=== PATIENT | male | born 1945 | race Caucasian/White ===

== ENCOUNTER → 2024-02-20 10:23 | Outpatient (REF) | payer MEDICARE, OTHER, SELFPAY ==
[2024-02-21 23:21] LABS: Gastrin 15 pg/mL (0-100)
[2024-02-22 13:32] LABS: Chromogranin A 86 ng/mL (0-187)
== END ==
LOC: REG 10:23
PROVIDERS: ATTENDING PHYSICIAN Internal Medicine Gastroenterology; FAMILY PHYSICIAN Internal Medicine
DX: K52.9 Noninfective gastroenteritis and colitis, unspecified (principal)
CPT/HCPCS: 36415; 82941; 84586; 86316

== ENCOUNTER → 2024-02-22 12:18 | Outpatient (REF) | payer MEDICARE, OTHER, SELFPAY | LOC: RAD 12:18 | PROVIDERS: ATTENDING PHYSICIAN Internal Medicine Gastroenterology; FAMILY PHYSICIAN Internal Medicine | DX: K52.9 Noninfective gastroenteritis and colitis, unspecified (principal) | CPT/HCPCS: 74177; Q9967 ==

== ENCOUNTER → 2024-02-26 10:59 | Outpatient (REF) | payer MEDICARE, OTHER, SELFPAY | LOC: REG 10:59 | PROVIDERS: ATTENDING PHYSICIAN Internal Medicine Gastroenterology; FAMILY PHYSICIAN Internal Medicine | DX: K52.9 Noninfective gastroenteritis and colitis, unspecified (principal) | CPT/HCPCS: 83497 ==

== ENCOUNTER → 2024-04-15 06:23 | Day surgery (SDC) | payer MEDICARE, OTHER, SELFPAY | LOC: GI 06:23 | PROVIDERS: ATTENDING PHYSICIAN Internal Medicine Gastroenterology | DX: K52.9 Noninfective gastroenteritis and colitis, unspecified (principal); K55.9 Vascular disorder of intestine, unspecified | CPT/HCPCS: 45331; 88305 ==

== ENCOUNTER 2024-05-12 20:48 | Inpatient (IN) | payer MEDICARE, OTHER, SELFPAY ==
[2024-05-12] VITALS (12 sets, daily range): BP systolic 104–142; BP diastolic 78–99; BMI 33.6; BMI 32.8
[2024-05-12] MEDS: ZOFRAN 4 MG IV (16:23)
[2024-05-12] MEDS: MORPHINE SULFATE 4 MG IV ×2 (16:32→20:00)
--- NOTE | 2024-05-12 16:40 | ED.GENMED ---
History of Present Illness
General
Chief Complaint: Abdominal Symptoms
Source: patient
Time Seen by Provider: 05/12/24 16:22
History of Present Illness
History of Present Illness:
79-year-old male presents emergency department with complaints of lower abdominal pain that started 2 AM and continues. Pain is constant, but will wax and wane in intensity without specific provoking or relieving factors. He also noted nausea and
repeated episodes of nonbloody vomiting that began at 4 AM, most recently vomited about an hour prior to presentation. He denies associated fever, chills, chest pain, shortness of breath, dizziness, back pain. He notes he has not had output from
his ostomy since this morning. Patient states that he accidentally ate a large Kory last night at dinner and he suspects that that was the cause of the symptoms.
Past History
Past History
ED Past Medical History: Hypercholesterolemia and Other (Liver transplant, ostomy, ischemic colitis)
ED Past Surgical History: Orthopedic, Tonsilectomy and Other
Social History
Tobacco: Non-smoker
Alcohol: None
Drug: None
Personal:
Living: with family
Phy Exam
Physical Exam
Physical Exam:
GENERAL: Alert , in no apparent distress
EYE: pupils equal and reactive
NECK: Supple, no significant adenopathy.
ENT: o/p clr, mmm.
CARDIAC: Regular rate and rhythm .
LUNGS: Clear breath sounds bilaterally, no acute respiratory distress, no wheezes/rales/rhonchi
ABDOMEN: Soft, nonspecific lower abdominal tenderness, no r/g, hyperactive bowel sounds, minimal output in ostomy
NEUROLOGICAL: Alert and oriented, no focal neuro deficits
SKIN: Warm and dry, skin intact.
MUSCULOSKELETAL: No edema, well perfused.
PSYCH: Normal and appropriate interaction.
Course
Orders/Labs/Results
Orders:
Orders
05/12/24 16:10
Ondansetron Injectable [Zofran] 4 mg .ROUTE .STK-MED ONE
05/12/24 16:22
Ondansetron Injectable [Zofran] 4 mg IV NOW STA
05/12/24 16:29
Morphine Sulfate 4 mg .ROUTE .STK-MED ONE
05/12/24 16:32
Morphine Sulfate 4 mg IV NOW STA
05/12/24 16:36
0.9% Sodium Chloride 250 ml [Nss] 250 ml IV BOLUS
05/12/24 16:39
CT Abd/Pel (IV only)-DH only Urgent
Comment:
Reason For Exam: HX ILEOSTOMY WITH N/V/PAIN
05/12/24 16:58
Complete Blood Count/No Diff Urgent
Comprehensive Metabolic Panel Urgent
Lipase Urgent
05/12/24 19:08
Morphine Sulfate 4 mg IV NOW STA
05/12/24 19:15
EKG [Electrocardiogram (*1)] Urgent
Reason for Study: Tachycardia
EKG- Treatment ONCE
05/12/24 19:[address] Non Medication Order As Directed
Physician Order: ng tube
05/12/24 19:18
0.9% Sodium Chloride 500 ml [Nss] 500 ml IV BOLUS
05/12/24 19:29
Diltiazem HCl [Cardizem] 25 mg IV NOW STA
Abnormal Lab Results
05/12/24
16:58
WBC 20.8 H 10^3/uL
(4.8-10.8)
RDW 14.8 H %
(11.5-14.5)
Carbon Dioxide 18 L mmol/L
(22-30)
BUN 22 H mg/dl
(9-20)
Glucose 146 H mg/dl
(70-99)
Calcium 10.6 H mg/dl
(8.4-10.2)
Alkaline Phosphatase 136 H U/L
(38-126)
Total Protein 8.9 H g/dl
(6.3-8.2)
Albumin 5.1 H g/dl
(3.5-5.0)
05/12/24 16:58
05/12/24 16:58
Vital Signs
Initial and Last Documented VS:
Initial Vital Signs
Temp Pulse Resp BP Pulse Ox
98.0 F 89 16 142/96 98
05/12/24 15:10 05/12/24 15:10 05/12/24 15:10 05/12/24 15:10 05/12/24 15:10
Last Documented Vital Signs
Temp Pulse Resp BP Pulse Ox
98.5 F 121 16 123/97 92
05/12/24 19:14 05/12/24 18:11 05/12/24 18:11 05/12/24 18:11 05/12/24 18:11
Update Note
Update Note:
Patient presents to the Emergency Department with abdominal pain nausea vomiting
Number and Complexity of Problems Addressed at the Encounter
� Chronic conditions affecting care:
� Acute Exacerbation and/or Progression of Chronic Illness:
� Differential Diagnosis includes: But not limited to hernia, obstruction, gastroenteritis, etc. etc.
Amount and/or Complexity of Data to be Reviewed and Analyzed
� I performed an independent evaluation of and my interpretation is:
EKG: Repeat ECG read by me a flutter with variable block, rate 128, no acute ischemia
CT:Right lower quadrant diverting ileostomy with a small bowel obstruction . The right lower quadrant parastomal hernia containing a loop of nonobstructed bowel. There is associated edema, likely due to high-grade obstruction.
Intermediate density bilateral renal lesions which are unchanged from prior and may represent hemorrhagic/proteinaceous cyst measuring 1.4 cm on the right and 1.9 cm on the left.. Further evaluation with MRI may be considered.
There is improvement within the sigmoid wall thickening as well as the urinary bladder wall thickening.
Xrays:
Laboratory Studies:leukocytosis 20K
Other:
� Review of other/old records reveals: Discharge summary from September 2023 patient diagnosed with ischemic colitis and had a laparoscopic diverting loop ileostomy.
� Clinical information was obtained by an independent historian: who is bedside
� Prescriptions/Medications Considered but not given:
� Further testing considered but not performed:
Risk of Complications and/or Morbidity or Mortality of Patient Management
� Social determinants of health affecting care:
� Discussion with other providers (PCP, Hospitalists, Consultants, etc):
� Escalation of care including admission/observation vs risk of discharge considered: 7:11 PM pain has returned, we are remedicating now. No active vomiting noted. Labs consistent with leukocytosis, no fever or focal abdominal
tenderness. CT consistent with high-grade obstruction. Case discussed with colorectal surgery Dr. Lance via [place] text. He recommends admission to the hospitalist, NG tube, and continue IV fluids. [place] text sent to Dr. Sellers for admission.
7:29 PM patient noted to be tachycardic although asymptomatic, repeat ECG ordered, consistent with a flutter, Dr. Zayas alerted, will medicate with Cardizem now and monitor closely.
ED Attending Note
-
Portions of this chart may have been created with voice recognition software.� Occasional wrong word or��sound alike� substitutions may have occurred due to the inherent limitations of voice recognition software.
Discharge Plan
Departure
Patient Disposition: Admit
Date of Disposition: 05/12/24
Time of Disposition: 19:18
Presentation/result/management discussed w/ accepting MD/DO: Hospitalist
Condition: Fair
Discharge Problem:
Bowel obstruction
Prescriptions:
No Action
atorvastatin 20 mg Tablet
20 mg PO DAILY
tacrolimus 1 mg Capsule
1 mg PO DAILY
cholecalciferol (vitamin D3) 25 mcg (1,000 unit) Capsule
25 mcg PO DAILY
cetirizine 10 mg Capsule
10 mg PO DAILY
dutasteride-tamsulosin 0.5-0.4 mg Capsule, Er Multiphase 24 Hr
1 cap PO DAILY
acetaminophen [Tylenol] 325 mg Tablet
650 mg PO Q6H PRN (Reason: lower back pain)
Fish Oil 350-600 mg Capsule
1 cap PO DAILY
therapeutic multivitamin Tablet
1 tab PO DAILY
loperamide 2 mg Capsule
2 mg PO DAILYPRN PRN (Reason: diarrhea/liquid stool) 30 Days Qty: 30 0RF
midodrine 5 mg tablet
5 mg PO TID 30 Days Qty: 90 0RF
Rx Instructions:
Hold if Systolic blood pressure >100
Referrals:
Eric Tirado MD [Family Provider] -
Interventions
Interventions:
*Risk Screen - Suicide Last Done: 05/12/24 16:05
*General Assessment Last Done: 05/12/24 16:05
*Neglect/Abuse Screening Last Done: 05/12/24 16:05
ED- Fall Risk Assessment Last Done: 05/12/24 16:05
*ED COVID-19 Vaccine History Last Done: 05/12/24 16:05
FC-Jrogmt-[id number] Assessment Last Done: 05/12/24 16:05
Discharge Date and Time
Print Language: AFGHAN
[2024-05-12] MEDS: NSS 250 IV (17:02)
[2024-05-12 17:10] LABS: Hematocrit 51.3 % (39.0-52.0); Hemoglobin 17.7 g/dL (13.0-18.0); Mean Corp Hgb Conc. 34.5 g/dL (33.0-37.0); Mean Corpuscular Hgb 29.6 pg (27.0-31.0); Mean Corpuscular Volume 85.8 fL (80.0-94.0); Mean Platelet Volume 9.9 fL (7.4-10.4); Platelet Count 217 10^3/uL (130-400); Red Blood Cell Count 5.98 10^6/uL (4.70-6.10); Red Cell Dist. Width 14.8 % (11.5-14.5); White Blood Cell Count 20.8 10^3/uL (4.8-10.8)
[2024-05-12 17:21] LABS: ALT (SGPT) 37 U/L (0-50); AST (SGOT) 48 U/L (17-59); Albumin 5.1 g/dl (3.5-5.0); Alkaline Phosphatase 136 U/L (38-126); Blood Urea Nitrogen 22 mg/dl (9-20); Calcium 10.6 mg/dl (8.4-10.2); Carbon Dioxide 18 mmol/L (22-30); Chloride 106 mmol/L (98-107); Estimated Creatinine Clearance 69 ml/min; Glucose 146 mg/dl (70-99); Lipase 68 U/L (23-300); Potassium 4.9 mmol/L (3.5-5.1); Sodium 143 mmol/L (135-145); Total Bilirubin 1.1 mg/dl (0.2-1.3); Total Protein 8.9 g/dl (6.3-8.2); eGFR > 60.00
[2024-05-12] MEDS: NSS 500 IV (19:52)
--- NOTE | 2024-05-12 20:11 | HPS.HSE ---
Family Physician
-
Family Physician: Eric Tirado MD
Chief Complaint
-
Abd Pain, N/V
History of Present Illness
Patient is a 79y M with PMH significant for alpha-1 antitrypsin deficiency with resultant cirrhosis and s/p liver transplant who presents to ED complaining of abdominal pain and N/V. Patient states that he has been feeling well of late. Last PM
he went out for dinner with family. While eating ice cream after dinner, he noted that he accidentally swallowed a large, frozen burks. He states that he thought this might cause problems - though he denies any prior h/o bowel obstruction, etc.
Around 2 AM patient woke with pain across his lower abdomen. He was uncomfortable and restless and then at 4 AM he began to have N/V episodes. Patient reports non-bloody emesis. His lower abdominal pain persisted. he also reports sensation of
'tightness' in his chest and diaphoresis. No SOB. No back pain. Patient presented to the ED today for further evaluation.
Patient notes that he has had very little output via his ostomy today.
CT scan done in the ED reveals patient to have high-grade SBO with transition in the RLQ.
During his stay in the ED, patient spontaneously entered A-Flutter with rates around 150 bpm.
He was given push dose of IV Cardizem thus far.
Patient is resting comfortably at present. He notes that his abdominal pain and chest tightness are improved, but not resolved.
He has no palpitations.
He denies any prior history of A-Fib / Flutter or other CV disease.
Medical History
Past Medical History
Past Medical History: Reports Other
Additional Past Medical History:
Alpha-1 Antitrypsin Deficiency
Cirrhosis
Ischemic Colitis
Chronic Diarrhea
Hypertension
BPH
Past Surgical History: Reports Other
Additional Past Surgical History:
Liver Transplant (26 years ago - followed at [facility])
Diverting Loop Ileostomy (09/26/23)
Cervical Fusion
Lumbar Fusion
Right Rotator Cuff Repair
Left TKA
Right ABE
Social History
Tobacco: Non-smoker
Alcohol: None
Drug: None
Family History
Family History: Other (Mother: CKD Father: CAD)
Allergies / Home Medications
Allergies reflects when Allergies were last updated in [employer].
Home Medications with original date entered in [employer]
Allergy/Medication List:
Allergies
Allergy/AdvReac Type Severity Reaction Status Date / Time
erythromycin base Allergy Unknown Verified 05/12/24 15:13
pollen extracts Allergy Unknown Verified 05/12/24 15:13
Home Medications
acetaminophen 325 mg tablet (Tylenol) 650 mg PO Q6HPRN PRN lower back pain 09/13/23
cetirizine 10 mg capsule 10 mg PO DAILY Allergies 09/13/23
cholecalciferol (vitamin D3) 25 mcg (1,000 unit) capsule 25 mcg PO DAILY Supplement 09/13/23
dutasteride 0.5 mg-tamsulosin ER 0.4 mg capsule ext.release 24hr mphas 1 cap PO DAILY Urinary Issue 09/13/23
tacrolimus 1 mg capsule, immediate-release 1 mg PO DAILY Liver Issues 09/13/23
therapeutic multivitamin 1 tab PO DAILY Supplement 09/13/23
atorvastatin 40 mg tablet 40 mg PO DAILY 05/12/24
Review of Systems
-
History Source: Patient
A 12 point ROS was completed and negative except as noted: Yes
Constitutional: Denies Fever, Fatigue or Chills
EENT: Denies Sore Throat
Respiratory: Denies Cough or Trouble Breathing
Cardiac: Reports Chest Pain and Diaphoresis; Denies Palpitations or Syncope
Abdomen/GI: Reports Abdominal Pain, Nausea and Vomiting; Denies Diarrhea
: Denies Dysuria
Musculoskeletal: Denies Joint Pain or Edema
Neurological: Denies Dizzy or Headache
Psych: Denies Depression or Anxiety
Physical Exam
Vital Signs
Vital Signs
Temp Pulse Resp BP Pulse Ox
98.5 F 105 18 113/88 95
05/12/24 19:14 05/12/24 20:02 05/12/24 20:02 05/12/24 20:02 05/12/24 20:02
Physical Exam
General: Other (79y M in no acute distress.)
HEENT: Moist mucous membranes and PERRLA
Respiratory: Clear; No Wheezes, Rales or Rhonchi
Cardiac: S1/S2, Irregular Rhythm and Tachycardia; No Murmur
GI: Other (Abdomen is softly distended. RLQ ostomy without significant stool / gas in the device. Dark red appearance of stoma which patient states is normal. Abdomen is diffusely tender.)
Musculoskeletal: No Clubbing, No Cyanosis and No Edema
Neuro: AO x 3
Laboratory Results
-
05/12/24 16:58
05/12/24 16:58
Laboratory Results
Total Bilirubin 1.1 mg/dl (0.2-1.3) 05/12/24 16:58
AST 48 U/L (17-59) 05/12/24 16:58
ALT 37 U/L (0-50) 05/12/24 16:58
Alkaline Phosphatase 136 U/L (38-126) H 05/12/24 16:58
Lipase 68 U/L (23-300) 05/12/24 16:58
Impression/Plan
-
A/P: Patient is a 79y M with PMH significant for alpha-1 antitrypsin deficiency, cirrhosis and liver transplant who presents to ED complaining of abdominal pain and N/V.
SBO
- Admit for further evaluation and treatment.
- NG placed in the ED for decompression.
- Supportive care including NPO, IVFs, antiemetics and pain control.
- Colorectal surgery evaluation.
- Follow for clinical improvement.
- Empiric abx for now given risk of bacterial translocation in immunocompromised host with SBO.
Anion Gap Metabolic Acidosis
- AG = 19 on initial labs. Suspect lactic acidosis - lactate pending.
- IVF support and follow for improvement in labs / lytes.
- Other labs suggest significant hypovolemia which may be sole culprit; however, patient does have history of intestinal / colonic ischemia in the past.
Atrial Flutter
- Patient went into A-Flutter in the ED with rates around 150 bpm.
- To receive Cardizem bolus dose now - follow for effect.
- Begin IV Cardizem infusion if needed for continued rate control.
- Cardiology evaluation for additional recommendations.
- Check Echo.
- Hold on initiation of OAC for now given potential surgical issues / SBO as noted above.
Leukocytosis
- Likely due to stress response plus hypovolemia.
- Note concurrent elevations in prot / albumin, calcium, Hgb, etc.
- Patient is afebrile and not toxic-appearing.
- IVF as noted above and follow for changes.
- Empiric abx as noted above given immunosuppressed status.
History of Ischemic Colitis
Permanent Diverting Ileostomy
- Patient with chronic diarrhea x 1 year and then admission September 2023 revealing sigmoid colitis - presumed ischemic.
- Underwent diverting ileostomy at that time.
- Re-look sigmoidoscopy March 2024 showed persistent inflammatory changes and ileostomy deemed irreversible as a result.
- Routine ostomy care - follow for increased output.
- Colorectal Surgery eval as noted above.
Alpha-1 Antitrypsin Deficiency
Cirrhosis s/p Liver Transplant
Immunosuppressed State
- Stable. Continue current tacrolimus dosing.
- IV abx for now as noted above.
- Follows annually at [facility] for his post-transplant care.
BPH
- Stable. Continue tamsulosin.
- Bladder scan protocol.
DVT Prophylaxis: SCDs
Code Status: Full
[2024-05-12 20:15] LABS: Magnesium 1.8 mg/dl (1.6-2.3)
[2024-05-12 21:04] LABS: Lactic Acid 1.9 mmol/L (0.7-2.0)
[2024-05-12 21:16] LABS: Troponin I < 0.012 ng/ml
[2024-05-12] MEDS: LOPRESSOR 5 MG IV (21:59)
[2024-05-12] MEDS: ZOSYN 50 IV (23:17)
[2024-05-12] MEDS: NSS 1000 IV (23:17)
[2024-05-13] VITALS (13 sets, daily range): BP systolic 100–140; BP diastolic 71–98; BMI 32.9
[2024-05-13 00:52] LABS: Troponin I 0.127 ng/ml
[2024-05-13 00:58] LABS: TSH Reflex To Free T4 4.13 uIU/ml (0.47-4.68)
[2024-05-13] MEDS: ZOSYN 50 IV ×4 (05:15→23:45)
[2024-05-13 05:38] LABS: Hematocrit 44.2 % (39.0-52.0); Hemoglobin 15.1 g/dL (13.0-18.0); Mean Corp Hgb Conc. 34.2 g/dL (33.0-37.0); Mean Corpuscular Hgb 29.7 pg (27.0-31.0); Mean Corpuscular Volume 86.8 fL (80.0-94.0); Mean Platelet Volume 9.5 fL (7.4-10.4); Platelet Count 193 10^3/uL (130-400); Red Blood Cell Count 5.09 10^6/uL (4.70-6.10); White Blood Cell Count 13.5 10^3/uL (4.8-10.8)
[2024-05-13 05:59] LABS: Blood Urea Nitrogen 25 mg/dl (9-20); Calcium 9.1 mg/dl (8.4-10.2); Carbon Dioxide 22 mmol/L (22-30); Chloride 110 mmol/L (98-107); Estimated Creatinine Clearance 62 ml/min; Glucose 106 mg/dl (70-99); Potassium 4.2 mmol/L (3.5-5.1); Sodium 144 mmol/L (135-145); Troponin I 0.194 ng/ml; eGFR > 60.00
--- NOTE | 2024-05-13 06:00 | PTCARENOTE ---
Admitted pt overnight. aaox3, NSR on monitor HR in 70's, bp's stable. C/o slight pain in lower abdomen. NGT R nare, low intermittent suction, drained 700cc green/brown drainage overnight. IVF & IVABX. Refused SCDs. Pt belching but no output in
ostomy or gas.
Pt admitted as full code, when admitted pt, received pt advanced directive & it stated he was a DNR. Educated pt the difference between full code and DNR and what his wishes were. Wished to stay DNR. Reached out to PATIENT SUPPORT TECH, order changed to DNR, bracelet
applied.
No other issues at this time. will continue to monitor.
[2024-05-13] MEDS: PROTONIX IV 40 MG IV (08:05)
[2024-05-13] MEDS: FLOMAX 0.4 MG PO (08:05)
[2024-05-13] MEDS: PROGRAF 1 MG PO (08:05)
[2024-05-13] MEDS: NSS (PRESERVATIVE FREE) 10 ML IV (08:05)
[2024-05-13] MEDS: NSS 1000 IV ×3 (08:11→22:30)
--- NOTE | 2024-05-13 10:37 | PTCARENOTE ---
Assumed care of patient this morning. He is aaox3, pleasant. He reports minimal pain to lower abdomen and describes as cramping. He is tolerating NGT, flushed per order. No output from ileostomy. Pt assisted to get OOB to chair. Pt's at
bedside and updated per RN ability. Assessment, care and VS as charted.
--- NOTE | 2024-05-13 10:46 | CON.CAR ---
Addendum entered and electronically signed by Pal Ortega MD 05/13/24 14:09:
I saw and examined the patient.
The VP [employer]'s note was reviewed and I agree with the note.
Primary support services manager at [facility]
79-year-old male with a history of open 1 antitrypsin, liver transplant, diverting loop ileostomy 09/26/2023 dilated aortic root who presented with abdominal pain and SBO. Patient had ECG with A-fib and a flutter. Patient has since spontaneously
converted back to sinus rhythm. Patient denies having palpitations or heart racing preceding admission or during admission. No known history of A-fib or a flutter denies having any history of coronary artery disease or heart failure.
Echocardiogram this admission with normal left ventricular function and mildly dilated aortic root.
-# New onset A-fib in the setting of SBO.
-CHADSVASC 2
-No anticoagulation with ongoing intra-abdominal process.
-Patient back in sinus rhythm.
-Low-dose beta-lydia
-Continue treatment of SBO as directed by primary team and surgical team
Original Note:
Consultation
Consultation Request
Date/Time Consultation Requested: 05/12/24 10:30p
Date/Time Consultation Performed: 05/13/24 8a
Requesting Provider: Dr. Sellers
Performing Provider: MARK Coombs for Dr. Ortega
Reason for Consultation: new onset Afib
Medical History
-
Chief Complaint: lower abdominal pain
History of Present Illness:
Mr. Kelly is a 79yo male with alpha-1 antitrypsin deficiency with cirrhosis and s/p liver transplant 26 years ago followed at [facility], BPH, HLD, Diverting Loop Ileostomy (09/26/23), 'enlarged aorta' per patient per his support services manager at [facility]
and cervical and lumbar fusion, who presents with abdominal pain. Imaging shows a SBO and he has an NG tube in place. In the ER he had new onset Aflutter at 128 bpm then Afib with RVR 141 bpm, and was given IV Cardizem and IV Lopressor. He then
converted to NSR, no recurrence of Afib on tele. He denies any symptoms. He is admitted to the hospitalist service and we are consulted for new Afib/Aflutter. Currently he denies any cardiac symptoms.
Past Medical History
Past Medical History: Other (as above)
Past Surgical History: Other (as above)
Social History
Tobacco: Non-Smoker
Alcohol: None
Personal:
Living: With Family
Family History
Family History: Reviewed & Not Pertinent
Allergies / Home Medications
Allergy/AdvReac Type Severity Reaction Status Date / Time
erythromycin base Allergy Unknown Verified 05/12/24 15:13
pollen extracts Allergy Unknown Verified 05/12/24 15:13
�Medication �Instructions �Recorded �Confirmed �Type
acetaminophen 325 mg tablet 650 mg PO Q6HPRN PRN lower back 09/13/23 05/12/24 History
(Tylenol) pain
cetirizine 10 mg capsule 10 mg PO DAILY Allergies 09/13/23 05/12/24 History
cholecalciferol (vitamin D3) 25 25 mcg PO DAILY Supplement 09/13/23 05/12/24 History
mcg (1,000 unit) capsule
dutasteride 0.5 mg-tamsulosin ER 1 cap PO DAILY Urinary Issue 09/13/23 05/12/24 History
0.4 mg capsule ext.release 24hr
mphas
tacrolimus 1 mg capsule, 1 mg PO DAILY Liver Issues 09/13/23 05/12/24 History
immediate-release
therapeutic multivitamin 1 tab PO DAILY Supplement 09/13/23 05/12/24 History
atorvastatin 40 mg tablet 40 mg PO DAILY High Cholesterol 05/12/24 05/12/24 History
Review of Systems
-
History Source: Patient
All other systems: Negative unless noted
Physical Exam
Vital Signs
Temp Pulse Resp BP Pulse Ox
98.2 F 69 19 106/74 91
05/13/24 07:05 05/13/24 06:00 05/13/24 06:00 05/13/24 06:00 05/13/24 06:00
Lab Results
05/13/24 05:18
05/13/24 05:18
Troponin I 0.194 ng/ml H* D 05/13/24 05:18
Physical Exam
General: Well Developed, Well Nourished and No Apparent Distress
HEENT: Normocephalic, Anicteric and Other (NG tube in place)
Respiratory: Clear and Non Labored Respirations
Cardiac: S1/S2 and Regular Rhythm
Breast: Deferred by me
GI: Soft and Tender (lower abd)
Rectal: Deferred by Provider
Genito-urinary: Clear Urine
Musculoskeletal: No Clubbing, No Cyanosis and No Edema
Skin: Warm and Dry
Neuro: AO x 3
Psych: Calm
Impression / Plan
-
Afib/Aflutter - new onset in the ER 05/12/24.
- asymptomatic.
- treated with IV Cardizem then IV Lopressor and converted to NSR.
- no recurrence on tele, monior.
- [id number] VASc score is 2 (age), will hold off on OAC therapy due to need for possible surgical intervention of SBO.
- check echo.
Abdominal pain - acute.
- right lower quadrant diverting ileostomy with small bowel obstruction.
- NG tube in place.
- surgery following.
HLD - stable on Lipitor, continue.
- he states his support services manager said he has an 'enlarged aorta' and so she just increased Lipitor from 20mg to 40mg daily.
Liver transplant - 26 years ago, stable followed at [facility].
Data Reviewed
-
EKG: Tracing Personally Visualized and interpreted (initially Aflutter 120s then Afib 140s then NSR 70s)
CT Scan: Report Reviewed by me (right lower quadrant diverting ileostomy with small bowel obstruction)
Labs: Labs Reviewed by me
Old Records: Reviewed
[2024-05-13 11:06] LABS: Troponin I 0.168 ng/ml
--- NOTE | 2024-05-13 11:15 | CON.CRS ---
Consultation
-
Date/Time Consultation Requested: 05/12/2024, 22:21
Date/Time Consultation Performed: 05/13/2024, 11:15
Requesting Provider: Alton Sellers DO
Performing Provider: Myles Lance MD
Reason for Consultation: SBO
Medical History
-
Chief Complaint: abdominal pain/vomiting
History of Present Illness:
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 The patient states he was out to dinner last night and ate a large burks
that was in some ice cream. He was afraid this might cause some stomach discomfort. Around 2 AM he woke with pain in his lower abdomen and then vomited several times. His ostomy bag currently has function and flatus. His WBC was 20.8 and is down
to 13.[address] of the abdomen and pelvis shows right lower quadrant diverting ileostomy with small bowel obstruction. 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 An NG tube was placed in the ER.
He was started on IV antibiotics. We have been consulted for further surgical recommendation.
Past Medical History
Past Medical History: Other (Alpha-1 Antitrypsin Deficiency, Cirrhosis, Ischemic Colitis, Chronic Diarrhea, Hypertension, BPH)
Past Surgical History: Other (Liver Transplant (26 years ago - followed at [facility]), Diverting Loop Ileostomy (09/26/23), Cervical Fusion, Lumbar Fusion, Right Rotator Cuff Repair, Left TKA, Right ABE)
Social History
Tobacco: Non-Smoker
Alcohol: None
Drug: None
Family History
Family History: Reviewed & Not Pertinent
Allergies / Home Medications
Allergy/AdvReac Type Severity Reaction Status Date / Time
erythromycin base Allergy Unknown Verified 05/12/24 15:13
pollen extracts Allergy Unknown Verified 05/12/24 15:13
�Medication �Instructions �Recorded �Confirmed �Type
acetaminophen 325 mg tablet 650 mg PO Q6HPRN PRN lower back 09/13/23 05/12/24 History
(Tylenol) pain
cetirizine 10 mg capsule 10 mg PO DAILY Allergies 09/13/23 05/12/24 History
cholecalciferol (vitamin D3) 25 25 mcg PO DAILY Supplement 09/13/23 05/12/24 History
mcg (1,000 unit) capsule
dutasteride 0.5 mg-tamsulosin ER 1 cap PO DAILY Urinary Issue 09/13/23 05/12/24 History
0.4 mg capsule ext.release 24hr
mphas
tacrolimus 1 mg capsule, 1 mg PO DAILY Liver Issues 09/13/23 05/12/24 History
immediate-release
therapeutic multivitamin 1 tab PO DAILY Supplement 09/13/23 05/12/24 History
atorvastatin 40 mg tablet 40 mg PO DAILY High Cholesterol 05/12/24 05/12/24 History
Review of Systems
-
History Source: Patient
Abdomen/GI: Abdominal Pain, Nausea and Vomiting
A 10 point review of systems was completed, and was negative except as per HPI.
Physical Exam
Vital Signs
Temp 98.2 F 05/13/24 07:05
Pulse 58 05/13/24 10:00
Resp Rate 16 05/13/24 10:00
Blood pressure 117/82 05/13/24 10:00
SaO2 95 05/13/24 10:53
05/12/24 05/13/24 05/14/24
06:59 06:59 06:59
Actual Weight 98 kg
Body Mass Index (BMI) 32.9
Lab Results / Allergies
05/13/24 05:18
05/13/24 05:18
WBC 13.5 10^3/uL (4.8-10.8) H 05/13/24 05:18
Hgb 15.1 g/dL (13.0-18.0) 05/13/24 05:18
Hct 44.2 % (39.0-52.0) 05/13/24 05:18
Plt Count 193 10^3/uL (130-400) 05/13/24 05:18
Allergy/AdvReac Type Severity Reaction Status Date / Time
erythromycin base Allergy Unknown Verified 05/12/24 15:13
pollen extracts Allergy Unknown Verified 05/12/24 15:13
Physical Exam
General: Well Developed and Well Nourished
GI: Soft, Non Tender, Non Distended and Other (ileostomy warm and pink with stool and flatus in bag)
Skin: Warm and Dry
Neuro: AO x 3
Data Reviewed
-
CT Scan: Image Personally Visualized and interpreted, Report Reviewed by me and Discussed with Patient
Labs: Labs Reviewed by me
Old Records: Requested
Assessment / Plan
-
Assessment: 79yo male, s/p recent diverting loop ileostomy by Dr. Alexander, presents to the ER with abdominal pain and vomiting, SBO found on CT, NGT placed in ER
WBC: 13.5 from 20.8. NGT output 1,000ml.
Plan:
-Continue NGT
-Abdominal xrays in AM
-No plans for surgery at this time
-On IV Zosyn
-Continue IVFs
-Will re-evaluate NGT tomorrow post xray
[2024-05-13] MEDS: DILAUDID 0.5 MG IV (12:38)
--- NOTE | 2024-05-13 13:03 | PTCARENOTE ---
Pt did have 50 mls of loose, barnes BM from ileostomy.
--- NOTE | 2024-05-13 14:06 | CM ---
CM met with pt and spouse/Catarina bedside
They reside in a 2[address] with 3 HELEN, full flight to 2nd floor
Pt is independent with his ADLs, has a SPC for use as needed
Self cares for ostomy and orders supplies through [facility]
No financial insecurities
PCP- Celestino
Rx- [facility]
Pt in IMU with SBO/NGT
Surgery following with non-operative management at this time
CM will continue to follow for dc planning
Discharge Disposition- home, follow for needs
--- NOTE | 2024-05-13 14:35 | W.PN.HOSP.TC ---
Today's Communication/Plan
-
conservative management
ngt, abd cxr in the am
low dose bb
Assessment / Plan
Assessment / Plan
General: Well Developed, Well Nourished and No Apparent Distress
HEENT: Normocephalic, Anicteric and Other (NG tube in place)
Respiratory: Clear and Non Labored Respirations
Cardiac: S1/S2 and Regular Rhythm
Breast: Deferred by me
GI: Soft and Tender (lower abd)
Rectal: Deferred by Provider
Genito-urinary: Clear Urine
Musculoskeletal: No Clubbing, No Cyanosis and No Edema
Skin: Warm and Dry
Neuro: AO x 3
Psych: Calm
#SBO-
�continue NG tube
� Abdominal x-ray in the a.m.
-Conservative management
-Continue IV antibiotics empirically due to immunocompromise state
#New onset atrial fibrillation
� No anticoagulation with ongoing intra-abdominal process
� Back in sinus rhythm
� Low-dose beta-lydia next�cardiology consulted
� Echo�mild LVH, EF 60 to 65%
#Hyperlipidemia
� Continue statin
#Leukocytosis
� Most likely acute stress
� Continue antibiotics empirically
� Continue to trend fever curve, white count
#History of Ischemic Colitis
#Permanent Diverting Ileostomy
- Patient with chronic diarrhea x 1 year and then admission September 2023 revealing sigmoid colitis - presumed ischemic.
- Underwent diverting ileostomy at that time.
- Re-look sigmoidoscopy March 2024 showed persistent inflammatory changes and ileostomy deemed irreversible as a result.
- Routine ostomy care - follow for increased output.
- Colorectal Surgery eval as noted above.
#Alpha-1 Antitrypsin Deficiency
#Cirrhosis s/p Liver Transplant
#Immunosuppressed State
- Stable. Continue current tacrolimus dosing.
- IV abx for now as noted above.
- Follows annually at [facility] for his post-transplant care.
#BPH
- Stable. Continue tamsulosin.
- Bladder scan protocol.
#Intermediate density bilateral renal lesions which are unchanged from prior and may represent hemorrhagic/proteinaceous cyst measuring 1.4 cm on the right and 1.9 cm on the left..
Further evaluation with MRI may be considered outpatient
DVT Prophylaxis: SCDs
Anticipated Discharge: > 48 hours
Subjective/Interval History
-
Date of Service: May 13, 2024
appears to have slow improvement in bowel function
Objective Data
-
Labs:
Laboratory Results
05/13/24
05:18
WBC 13.5 H
Hgb 15.1
Hct 44.2
Plt Count 193
Sodium 144
Potassium 4.2
Chloride 110 H
Carbon Dioxide 22
BUN 25 H
Creatinine 1.1
Glucose 106 H
Calcium 9.1 D
Vital Signs:
Vital Signs
Temp Pulse Resp BP Pulse Ox
98.1 F 64 19 130/89 97
05/13/24 11:25 05/13/24 12:00 05/13/24 12:00 05/13/24 12:00 05/13/24 12:00
I&O
05/12/24 05/13/24 05/14/24
06:59 06:59 06:59
Intake Total 1780 / 1780 170 / 170
Output Total 1650 / 1650 50 / 50
Balance 130 / 130 120 / 120
Review of Systems
-
History Source: Patient
All other systems: Not reviewed unless documented
Physical Exam
-
General: No Apparent Distress
HEENT: Normocephalic and Atraumatic
Respiratory: Negative Wheezes
Cardiac: Regular Rhythm and S1/S2
GI: Soft
Genito-urinary: No Costovertebral Tender
Psych: Calm
Data Reviewed
-
Diagnostic Radiology: Image personally visualized and interpreted and Report Reviewed by me
CT Scan: Image personally visualized and interpreted and Report Reviewed by me
Labs: Labs Reviewed by me
[2024-05-13] MEDS: LOPRESSOR IV ×2 (17:55→23:34)
[2024-05-14] VITALS (11 sets, daily range): BP systolic 122–162; BP diastolic 72–116; BMI 32.7
[2024-05-14 03:57] LABS: Hemoglobin 15.6 g/dL (13.0-18.0); Mean Corp Hgb Conc. 33.9 g/dL (33.0-37.0); Mean Corpuscular Hgb 29.1 pg (27.0-31.0); Mean Corpuscular Volume 85.8 fL (80.0-94.0); Mean Platelet Volume 9.7 fL (7.4-10.4); Platelet Count 194 10^3/uL (130-400); Red Blood Cell Count 5.36 10^6/uL (4.70-6.10); Red Cell Dist. Width 15.2 % (11.5-14.5); White Blood Cell Count 14.1 10^3/uL (4.8-10.8)
[2024-05-14 04:30] LABS: ALT (SGPT) 34 U/L (0-50); AST (SGOT) 56 U/L (17-59); Albumin 4.1 g/dl (3.5-5.0); Alkaline Phosphatase 102 U/L (38-126); Blood Urea Nitrogen 22 mg/dl (9-20); Calcium 9.4 mg/dl (8.4-10.2); Carbon Dioxide 25 mmol/L (22-30); Chloride 111 mmol/L (98-107); Estimated Creatinine Clearance 68 ml/min; Glucose 91 mg/dl (70-99); Magnesium 1.7 mg/dl (1.6-2.3); Potassium 4.1 mmol/L (3.5-5.1); Sodium 147 mmol/L (135-145); Total Bilirubin 1.7 mg/dl (0.2-1.3); Total Protein 7.4 g/dl (6.3-8.2); eGFR > 60.00
--- NOTE | 2024-05-14 04:42 | PTCARENOTE ---
No acute events overnight. NGT to LIWS. Hypoactive bowel sounds. No complaints of pain.
[2024-05-14] MEDS: LOPRESSOR IV ×2 (05:19→17:34)
[2024-05-14] MEDS: ZOSYN 50 IV (05:24)
[2024-05-14] MEDS: NSS 1000 IV (06:11)
[2024-05-14] MEDS: FLOMAX 0.4 MG PO (08:24)
[2024-05-14] MEDS: PROGRAF 1 MG PO (08:24)
[2024-05-14] MEDS: NSS (PRESERVATIVE FREE) 10 ML IV (08:24)
[2024-05-14] MEDS: PROTONIX IV 40 MG IV (08:24)
--- NOTE | 2024-05-14 08:37 | W.PN.CD ---
Today's Communication / Plan
-
continue IV bb would transition to 25mg po of succinate qhs
pt will follow up with typical op obstetrics technician Dr Echevarria at [facility], if no further recurrent arhythmia would allow the decision for DOAC to be made with her as an outpatient
No contraindication for surgical intervention if needed
I will sign off
Impression / Plan
-
Afib/Aflutter - new onset in the ER 05/12/24.
- asymptomatic.
- treated with IV Cardizem then IV Lopressor and converted to NSR.
-continue IV betablocker for now as npo
- no recurrence on tele, monitor
- [id number] VASc score is 2 (age), will hold off on OAC therapy due to need for possible surgical intervention of SBO.
- echo 05/13/24 with normal LVEF 60-65%, Dilated asc ao at 4.2cm. (Patient aware of this and is followed by outpatient cards, on statin)
Abdominal pain - acute.
- right lower quadrant diverting ileostomy with small bowel obstruction.
- NG tube in place.
- surgery following.
HLD - stable on Lipitor, continue.
- he states his obstetrics technician said he has an 'enlarged aorta' and so she just increased Lipitor from 20mg to 40mg daily.
Liver transplant - 26 years ago, stable followed at [facility].
Subjective
Feeling a bit better still abd pain, no cp or palps
Physical Exam
Vital Signs/Labs
Vital Signs
Temp Pulse Resp BP Pulse Ox
97.5 F 71 16 130/94 96
05/14/24 07:10 05/14/24 04:00 05/14/24 04:00 05/14/24 04:00 05/14/24 04:00
05/13/24 05/14/24 05/15/24
06:59 06:59 06:59
Actual Weight 98 kg 97.5 kg
05/14/24 03:34
05/14/24 03:34
Magnesium 1.7 mg/dl (1.6-2.3) 05/14/24 03:34
LAB Results
05/12/24 05/13/24 05/13/24
20:45 00:06 05:18
Troponin I < 0.012 0.127 H* D 0.194 H* D
05/13/24
10:21
Troponin I 0.168 H*
Physical Exam
Constitutional: No acute distress
Cardiovascular: Rhythm & rate is regular, Pedal edema is absent, JVD pressure is normal, Systolic murmur absent and Diastolic murmur absent
Respiratory: Respiratory effort normal, Lungs clear to auscul., Wheeze Absent, Crackles Absent and Rhonchi Absent
Neuro/Psych: AO x 3
Data Reviewed
-
Date of Service: May 14, 2024
EKG: Other (sinus with pvcs)
--- NOTE | 2024-05-14 09:04 | W.PN.CRS1 ---
Today's Communication / Plan
-
as below
Assessment/Plan
-
79-year-old male with PMH of severe proctocolitis (being worked up as outpatient, endoscopic biopsies consistent with acute inflammation concerning for possible ischemic colitis per GI, pending a CTA; s/p diverting loop ileostomy September 2023),
alpha 1 antitrypsin s/p liver transplant 26 years ago, liver cirrhosis, HTN who presents with nausea/vomiting and abdominal distention, CT showing RLQ diverting ileostomy with parastomal hernia containing nonobstructed small bowel, dilated loops
proximally concerning for SBO, WBC 20.8; admitted for nonoperative management of SBO with NGT and bowel rest
AFVSS, NGT�1.6 L bilious output
WBC 14.1 from 13.5, Hb stable, CR 1.0
�SBO
� No acute surgical intervention; however, remains with high output from NGT and decreased output from ostomy
� Follow-up x-ray; will likely order small bowel follow-through as he did not receive any oral contrast from his initial CT
� Continue n.p.o. with NGT and IVF; no p.o. meds, okay for ice chips
� Minimize pain medication for accurate abdominal exams; continue low-dose Dilaudid, okay to add Toradol
� Encourage IS, ambulate at least twice daily; okay to clamp NGT for ambulation
� IV Zosyn per hospitalist, no antibiotics necessary from colorectal standpoint
� Recommend DVT PPx
� Appreciate hospitalist
Subjective Data
Subjective Data
Date of Service: May 14, 2024
No overnight events.
Denies much pain.
Denies nausea/vomiting. Still n.p.o. with NGT
+ Ostomy function (states that he is still having some function, but still not back to his baseline) +voiding
Objective Data
-
Vital Signs
Temp Pulse Resp BP Pulse Ox
97.5 F 71 16 130/94 96
05/14/24 07:10 05/14/24 04:00 05/14/24 04:00 05/14/24 04:00 05/14/24 04:00
Intake & Output
05/13/24 05/14/24 05/15/24
06:59 06:59 06:59
Intake Total 1780 / 1780 3755 / 3755
Output Total 1650 / 1650 2400 / 2400
Balance 130 / 130 1355 / 1355
Intake:
Oral fluids 120 / 120 420 / 420
IV fluids (Total) 1500 / 1500 2875 / 2875
IV piggybacks 100 / 100 250 / 250
Amount instilled into GI Tube ( 60 / 60 210 / 210
Total)
[place] Sump 60 / 60 210 / 210
Output:
Liquid stool amount 50 / 50
Ileostomy 50 / 50
Gastrointestinal tube output ( 1000 / 1000 1600 / 1600
Total)
[place] Sump 700 / 700 1600 / 1600
Urine, Voided 650 / 650 750 / 750
Lab Results
05/14/24 03:34
05/14/24 03:34
Physical Exam
-
General: No Acute Distress and AOx3
HEENT: Grossly Normal
Abdomen: Soft, Distended (Mildly distended), Non Tender, No Guarding, No Rebound and Other (NGT-1.6 L bilious for last 24 hours)
Skin: Warm and Dry
--- NOTE | 2024-05-14 09:24 | PN.CDI ---
CDI
- -
CDI:
Physician Documentation Request
Admit Date: 05/12/24 20:48
Dear Doctor Gio,
Please review the following and provide your response in the progress notes.
Clinical Indicators:
Pt admitted with SBO.
05/12 H&P: 'Patient went into A-Flutter in the ED with rates around 150 bpm.'
Laboratory Tests
05/13/24 05/13/24 05/13/24
00:06 05:18 10:21
Troponin I 0.127 H* D 0.194 H* D 0.168 H*
Based on the above, could you clarify in the progress notes, the appropriate diagnosis, if significant, that supports the above abnormalities and additional evaluation, monitoring and/or treatment rendered:
nonischemic myocardial injury
insignificant abnormal lab values
Other
Use of terms such as suspected, likely, concern for, or probable (associated with a specific diagnosis that is being evaluated, monitored, or treated as if it exists) are acceptable and can be coded in the inpatient setting, when documented at the
time of discharge.
Thank you,
Corinne Cardona RN, BSN
CDI Specialist
Available via [facility] [employer]
Please use your independent medical judgment in providing your response.
--- NOTE | 2024-05-14 11:45 | WOUNDNOTE ---
[facility] RN Note: Assisted patient with ileostomy appliance change using his supplies: Hooper wafer # [id number], Chantal seal and Hooper high output pouch #[id number]. Stoma pink, with parastomal hernia. Liquid brown/rust colored stool noted in removed pouch.
Showed amount to RN Anju for I+O. Patient's Miconazole powder and no sting barrier wipe applied to minimal irritant rash around stoma. [id number] Optifoam gentle lite border foam applied to pinpoint adhesive skin tear just distal to wafer. Skin on
patient's sacrum and heels intact. Patient stood during sacral skin check. He declined wanting an air chair cushion. present. Instructed patient nursing can assist him with appliance change if needed prior to discharged. Will sign off, call if
needed.
--- NOTE | 2024-05-14 12:01 | PTCARENOTE ---
Patient sent to OP XRAY.
--- NOTE | 2024-05-14 14:14 | W.PN.HOSP.TC ---
Today's Communication/Plan
-
BB
small bowel follow through
Assessment / Plan
Assessment / Plan
General: Well Developed, Well Nourished and No Apparent Distress
HEENT: Normocephalic, Anicteric and Other (NG tube in place)
Respiratory: Clear and Non Labored Respirations
Cardiac: S1/S2 and Regular Rhythm
Breast: Deferred by me
GI: Soft and Tender (lower abd)
Rectal: Deferred by Provider
Genito-urinary: Clear Urine
Musculoskeletal: No Clubbing, No Cyanosis and No Edema
Skin: Warm and Dry
Neuro: AO x 3
Psych: Calm
#SBO-
�continue NG tube
� Small bowel follow-through this morning
-Conservative management�next labs depending on imaging
-No evidence of perforation, infection at this time�discontinue abx and monitor
#Hypernatremia
-start d5 1/2NS
-ctm
#New onset atrial fibrillation
� No anticoagulation with ongoing intra-abdominal process
� Back in sinus rhythm
� Low-dose beta-lydia qhs
-f/u outpatient cardiology - Dr Echevarria at [facility], if no further recurrent arhythmia would allow the decision for DOAC to be made with her as an outpatient
� Echo�mild LVH, EF 60 to 65%
#Hyperlipidemia
� Continue statin
#Leukocytosis
� Most likely acute stress
� Continue to trend fever curve, white count
#History of Ischemic Colitis
#Permanent Diverting Ileostomy
- Patient with chronic diarrhea x 1 year and then admission September 2023 revealing sigmoid colitis - presumed ischemic.
- Underwent diverting ileostomy at that time.
- Re-look sigmoidoscopy March 2024 showed persistent inflammatory changes and ileostomy deemed irreversible as a result.
- Routine ostomy care - follow for increased output.
- Colorectal Surgery eval as noted above.
#Alpha-1 Antitrypsin Deficiency
#Cirrhosis s/p Liver Transplant
#Immunosuppressed State
- Stable. Continue current tacrolimus dosing.
- Follows annually at [facility] for his post-transplant care.
#BPH
- Stable. Continue tamsulosin.
- Bladder scan protocol.
#Intermediate density bilateral renal lesions which are unchanged from prior and may represent hemorrhagic/proteinaceous cyst measuring 1.4 cm on the right and 1.9 cm on the left..
-Further evaluation with MRI may be considered outpatient
DVT Prophylaxis: SCDs
Anticipated Discharge: > 48 hours
Subjective/Interval History
-
Date of Service: May 14, 2024
High output from NG tube, decreased output from ostomy
Objective Data
-
Labs:
Laboratory Results
05/14/24
03:34
WBC 14.1 H
Hgb 15.6
Hct 46.0
Plt Count 194
Sodium 147 H
Potassium 4.1
Chloride 111 H
Carbon Dioxide 25
BUN 22 H
Creatinine 1.0
Glucose 91
Calcium 9.4
Total Bilirubin 1.7 H
AST 56
ALT 34
Alkaline Phosphatase 102
Vital Signs:
Vital Signs
Temp Pulse Resp BP Pulse Ox
97.6 F 68 13 127/92 96
05/14/24 11:30 05/14/24 10:00 05/14/24 10:00 05/14/24 10:00 05/14/24 11:54
I&O
05/13/24 05/14/24 05/15/24
06:59 06:59 06:59
Intake Total 1780 / 1780 3755 / 3755 150 / 150
Output Total 1650 / 1650 2400 / 2400 50 / 50
Balance 130 / 130 1355 / 1355 100 / 100
Review of Systems
-
History Source: Patient
All other systems: Not reviewed unless documented
Data Reviewed
-
Diagnostic Radiology: Image personally visualized and interpreted and Report Reviewed by me
CT Scan: Image personally visualized and interpreted and Report Reviewed by me
Labs: Labs Reviewed by me
[2024-05-14] MEDS: ZOSYN IV (14:39)
[2024-05-14] MEDS: LOPRESSOR 2.5 MG IV (15:37)
[2024-05-14] MEDS: D5/0.45%NACL 1000 IV ×2 (15:37→19:58)
--- NOTE | 2024-05-14 17:18 | PTCARENOTE ---
Patient had a busy day with imaging. Pt's NGT remains in R nare with high output, however, infused with contrast for small bowel XR and unknown amount instilled. Pt had minimal liquid PO today. This morning, pt's air vent on NG tube was found capped
by Dr. Pappas. When attempting to remove the cap, a piece broke and was unable to be removed. therefore cut the tubing to remove the cap to regain function of [place] sump tube. However, now the air vent portion of his tube is open and
draining when tube is not connected to suction and is below nose due to gravity. Linen and gown changes needed multiple times today as patient needed to be removed from suction for multiple tests.
WOC consulted to help with ostomy care per patient's request. Changed at the bedside.
Pt has mininal pain to lower abdomen, pt reports as cramping. There was some output in his ileostomy, see I&O.
Assessment, care and VS as charted.
--- NOTE | 2024-05-14 21:21 | W.PN.UPDATE ---
Update Note
Progress Note Update
RN reporting that NGT leaking bilous content all over. Will have NGT replaced.
[2024-05-15] VITALS (15 sets, daily range): BP systolic 98–130; BP diastolic 65–91; BMI 31.9
[2024-05-15] MEDS: LOPRESSOR 2.5 MG IV ×2 (00:01→17:11)
[2024-05-15 03:51] LABS: Hematocrit 44.5 % (39.0-52.0); Hemoglobin 15.1 g/dL (13.0-18.0); Mean Corp Hgb Conc. 33.9 g/dL (33.0-37.0); Mean Corpuscular Hgb 29.3 pg (27.0-31.0); Mean Corpuscular Volume 86.2 fL (80.0-94.0); Mean Platelet Volume 9.4 fL (7.4-10.4); Platelet Count 170 10^3/uL (130-400); Red Blood Cell Count 5.16 10^6/uL (4.70-6.10); Red Cell Dist. Width 14.6 % (11.5-14.5); White Blood Cell Count 10.8 10^3/uL (4.8-10.8)
[2024-05-15 04:18] LABS: ALT (SGPT) 30 U/L (0-50); AST (SGOT) 49 U/L (17-59); Albumin 3.9 g/dl (3.5-5.0); Alkaline Phosphatase 90 U/L (38-126); Blood Urea Nitrogen 24 mg/dl (9-20); Calcium 9.3 mg/dl (8.4-10.2); Carbon Dioxide 26 mmol/L (22-30); Chloride 106 mmol/L (98-107); Estimated Creatinine Clearance 75 ml/min; Glucose 111 mg/dl (70-99); Potassium 3.3 mmol/L (3.5-5.1); Sodium 142 mmol/L (135-145); Total Bilirubin 1.3 mg/dl (0.2-1.3); Total Protein 6.9 g/dl (6.3-8.2); eGFR > 60.00
--- NOTE | 2024-05-15 04:49 | PTCARENOTE ---
Addendum entered by Kandis Preston RN 05/15/24 04:51:
am k 3.3- carbon electrodes supervisor provider made aware and ordered repletion.
Original Note:
NGT placed overnight due to damaged pigtail leaking copious amounts of bile. Output of over 2 liters this shift of green bile. Remains on -80 continuous wall suction.
[2024-05-15] MEDS: LOPRESSOR IV ×3 (05:24→23:51)
[2024-05-15] MEDS: KCL 270 MEQ IV ×2 (05:24→10:14)
[2024-05-15] MEDS: D5/0.45%NACL 1000 IV ×2 (05:25→17:17)
[2024-05-15 05:27] LABS: Magnesium 1.8 mg/dl (1.6-2.3)
[2024-05-15] MEDS: FLOMAX 0.4 MG PO (10:11)
[2024-05-15] MEDS: NSS (PRESERVATIVE FREE) 10 ML IV (10:12)
[2024-05-15] MEDS: PROGRAF 1 MG PO (10:13)
[2024-05-15] MEDS: PROTONIX IV 40 MG IV (10:13)
--- NOTE | 2024-05-15 10:30 | W.PN.CRS1 ---
Today's Communication / Plan
-
Abdominal x-rays
Assessment/Plan
-
79-year-old male with PMH of severe proctocolitis (being worked up as outpatient, endoscopic biopsies consistent with acute inflammation concerning for possible ischemic colitis per GI, pending a CTA; s/p diverting loop ileostomy September 2023),
alpha 1 antitrypsin s/p liver transplant 26 years ago, liver cirrhosis, HTN who presents with nausea/vomiting and abdominal distention, CT showing RLQ diverting ileostomy with parastomal hernia containing nonobstructed small bowel, dilated loops
proximally concerning for SBO, WBC 20.8; admitted for nonoperative management of SBO with NGT and bowel rest
AFVSS, NGT�4.1 L
WBC 10.8 from 14.1
�SBO
� Follow-up on a.m. x-ray
-Stoma massaged by Dr. Pappas and attempts to free up bowel around the hernia
-Given high output and lack of improvement, we will consider surgery. Discussed possibility of the patient. Will await x-rays.
� Continue n.p.o. with NGT and IVF; no p.o. meds, okay for ice chips. NG tube to intermittent suction.
� Minimize pain medication for accurate abdominal exams; continue low-dose Dilaudid, okay to add Toradol
� Encourage IS, ambulate at least twice daily; okay to clamp NGT for ambulation
� IV Zosyn per hospitalist, no antibiotics necessary from colorectal standpoint
� Recommend DVT PPx
� Appreciate hospitalist
Subjective Data
Subjective Data
Date of Service: May 15, 2024
Patient states he feels much better today and now that his NG tube was manipulated by Dr. Pappas yesterday. He feels less bloated. He denies abdominal pain.
Objective Data
-
Vital Signs
Temp Pulse Resp BP Pulse Ox
98.5 F 57 24 130/88 96
05/15/24 07:43 08/29/24 07:35 05/15/24 07:35 05/15/24 07:35 05/15/24 07:35
Intake & Output
05/14/24 05/15/24 05/16/24
06:59 06:59 06:59
Intake Total 3755 / 3755 2160 / 2160
Output Total 2400 / 2400 4800 / 4800
Balance 1355 / 1355 -2640 / -2640
Intake:
Oral fluids 420 / 420 240 / 240
IV fluids (Total) 2875 / 2875 1600 / 1600
IV piggybacks 250 / 250
Amount instilled into GI Tube ( 210 / 210 320 / 320
Total)
[place] Sump 210 / 210 320 / 320
Output:
Liquid stool amount 50 / 50 300 / 300
Ileostomy 50 / 50 300 / 300
Gastrointestinal tube output ( 1600 / 1600 4100 / 4100
Total)
[place] Sump 1600 / 1600 4100 / 4100
Urine, Voided 750 / 750 400 / 400
Lab Results
05/15/24 03:37
05/15/24 03:37
Physical Exam
-
General: No Acute Distress and AOx3
Abdomen: Soft, Distended (Mild) and Non Tender
Skin: Warm and Dry
--- NOTE | 2024-05-15 14:14 | W.PN.HOSP.TC ---
Today's Communication/Plan
-
NPO
HSQ
Abx
d51/2
Assessment / Plan
Assessment / Plan
General: Well Developed, Well Nourished and No Apparent Distress
HEENT: Normocephalic, Anicteric and Other (NG tube in place)
Respiratory: Clear and Non Labored Respirations
Cardiac: S1/S2 and Regular Rhythm
Breast: Deferred by me
GI: Soft and Tender (lower abd)
Rectal: Deferred by Provider
Genito-urinary: Clear Urine
Musculoskeletal: No Clubbing, No Cyanosis and No Edema
Skin: Warm and Dry
Neuro: AO x 3
Psych: Calm
#SBO-
�continue NG tube
� Abdominal x-ray
-Conservative management�next labs depending on imaging
-No evidence of perforation, infection at this time�discontinue abx and monitor
#Hyponatremia
- d5 1/2NS
-ctm
#New onset atrial fibrillation
� No anticoagulation with ongoing intra-abdominal process
� Back in sinus rhythm
� Low-dose beta-lydia qhs
-f/u outpatient cardiology - Dr Echevarria at [facility], if no further recurrent arhythmia would allow the decision for DOAC to be made with her as an outpatient
� Echo�mild LVH, EF 60 to 65%
#Nonischemic myocardial injury
� No chest pain
� No wall motion abnormality on echo
� Cardiology was on board
� Follow-up outpatient
#Hypokalemia
� Monitor and replete
#Hyperlipidemia
� Continue statin
#Leukocytosis
� Most likely acute stress
� Continue to trend fever curve, white count
#History of Ischemic Colitis
#Permanent Diverting Ileostomy
- Patient with chronic diarrhea x 1 year and then admission September 2023 revealing sigmoid colitis - presumed ischemic.
- Underwent diverting ileostomy at that time.
- Re-look sigmoidoscopy March 2024 showed persistent inflammatory changes and ileostomy deemed irreversible as a result.
- Routine ostomy care - follow for increased output.
- Colorectal Surgery eval as noted above.
#Alpha-1 Antitrypsin Deficiency
#Cirrhosis s/p Liver Transplant
#Immunosuppressed State
- Stable. Continue current tacrolimus dosing.
- Follows annually at [facility] for his post-transplant care.
#BPH
- Stable. Continue tamsulosin.
- Bladder scan protocol.
#Intermediate density bilateral renal lesions which are unchanged from prior and may represent hemorrhagic/proteinaceous cyst measuring 1.4 cm on the right and 1.9 cm on the left..
-Further evaluation with MRI may be considered outpatient
DVT Prophylaxis: HSQ
Anticipated Discharge: Today
Subjective/Interval History
-
Date of Service: May 15, 2024
Increased ostomy output after stoma massage
Objective Data
-
Labs:
Laboratory Results
05/15/24
03:37
WBC 10.8
Hgb 15.1
Hct 44.5
Plt Count 170
Sodium 142
Potassium 3.3 L
Chloride 106
Carbon Dioxide 26
BUN 24 H
Creatinine 0.9
Glucose 111 H
Calcium 9.3
Total Bilirubin 1.3
AST 49
ALT 30
Alkaline Phosphatase 90
Vital Signs:
Vital Signs
Temp Pulse Resp BP Pulse Ox
98.3 F 78 20 112/86 94
05/15/24 11:10 05/15/24 12:00 05/15/24 12:00 05/15/24 12:00 05/15/24 12:00
I&O
05/14/24 05/15/24 05/16/24
06:59 06:59 06:59
Intake Total 3755 / 3755 2160 / 2160
Output Total 2400 / 2400 4800 / 4800 1450 / 1450
Balance 1355 / 1355 -2640 / -2640 -1450 / -1450
Review of Systems
-
History Source: Patient
All other systems: Not reviewed unless documented
Physical Exam
-
General: No Apparent Distress
HEENT: Normocephalic and Atraumatic
Respiratory: Negative Wheezes
Cardiac: Regular Rhythm and S1/S2
GI: Soft
Genito-urinary: No Costovertebral Tender
Psych: Calm
Data Reviewed
-
Diagnostic Radiology: Image personally visualized and interpreted and Report Reviewed by me
CT Scan: Image personally visualized and interpreted and Report Reviewed by me
Labs: Labs Reviewed by me
--- NOTE | 2024-05-15 14:35 | W.PN.UPDATE ---
Update Note
Progress Note Update
Evaluated patient this afternoon. Apparently since Dr. Pappas earlier attempted to reduce the patient's parastomal hernia, there has been significant ileostomy output. I did confirm this at the bedside. Situation discussed with Dr. Alexander.
Decision made to hold off on surgery for now. Repeat plain films in the morning. Patient and his updated
--- NOTE | 2024-05-15 17:04 | CM ---
Patient with Hx ileostomy with Dx SBO, new Afib. Room air. NPO/IVF/NGT. Per nurse assessment; OOB chair.
CM continuing to follow for d/c needs.
Plan home.
[2024-05-15] MEDS: HEPARIN 5000 UNITS SC ×2 (17:11→23:55)
--- NOTE | 2024-05-15 18:31 | PTCARENOTE ---
AAO, pleasant, denies pain. NGT patent with green liquid output. NPO x sips of water/ chips- 480ml this shift. nSehal Jeter notified earlier today of Ileostomy draining dark brown thin liquid since manipulated around stoma 975ml 1 hour after.
Total ileostomy output this shift 1900ml. Voided once this shift. IVF infusing, received 2 K riders today. OOB to chair most of the day.
[2024-05-16] VITALS (13 sets, daily range): BP systolic 99–130; BP diastolic 66–113; BMI 31.3
[2024-05-16 04:10] LABS: Hematocrit 44.4 % (39.0-52.0); Hemoglobin 15.3 g/dL (13.0-18.0); Mean Corp Hgb Conc. 34.5 g/dL (33.0-37.0); Mean Corpuscular Hgb 29.7 pg (27.0-31.0); Mean Platelet Volume 9.3 fL (7.4-10.4); Platelet Count 158 10^3/uL (130-400); Red Blood Cell Count 5.16 10^6/uL (4.70-6.10); Red Cell Dist. Width 14.5 % (11.5-14.5)
[2024-05-16 04:29] LABS: ALT (SGPT) 31 U/L (0-50); AST (SGOT) 45 U/L (17-59); Albumin 3.7 g/dl (3.5-5.0); Alkaline Phosphatase 89 U/L (38-126); Blood Urea Nitrogen 23 mg/dl (9-20); Calcium 9.1 mg/dl (8.4-10.2); Carbon Dioxide 24 mmol/L (22-30); Chloride 106 mmol/L (98-107); Estimated Creatinine Clearance 74 ml/min; Glucose 99 mg/dl (70-99); Potassium 3.7 mmol/L (3.5-5.1); Sodium 142 mmol/L (135-145); Total Bilirubin 1.4 mg/dl (0.2-1.3); Total Protein 6.8 g/dl (6.3-8.2); eGFR > 60.00
[2024-05-16] MEDS: LOPRESSOR IV ×3 (05:35→23:34)
--- NOTE | 2024-05-16 06:00 | PTCARENOTE ---
No acute events overnight. Sinus edwin on the monitor. NGT with 900 ml green bilious output. No complaints of pain.
[2024-05-16] MEDS: D5/0.45%NACL 1000 IV ×2 (07:08→20:10)
--- NOTE | 2024-05-16 07:52 | W.PN.CRS1 ---
Today's Communication / Plan
-
NGT clamping trial
if removed, remain NPO
Assessment/Plan
-
79-year-old male with PMH of severe proctocolitis (being worked up as outpatient, endoscopic biopsies consistent with acute inflammation concerning for possible ischemic colitis per GI, pending a CTA; s/p diverting loop ileostomy September 2023),
alpha 1 antitrypsin s/p liver transplant 26 years ago, liver cirrhosis, HTN who presents with nausea/vomiting and abdominal distention, CT showing RLQ diverting ileostomy with parastomal hernia containing nonobstructed small bowel, dilated loops
proximally concerning for SBO, WBC 20.8; admitted for nonoperative management of SBO with NGT and bowel rest
AFVSS, NGT�2.4L
WBC 9.0
�SBO
� Clamp NGT this AM, wait for 6 hours
- If NGT removed, remain NPO
� Minimize pain medication for accurate abdominal exams; continue low-dose Dilaudid, okay to add Toradol
� Encourage IS, ambulate at least twice daily
� IV Zosyn per hospitalist, no antibiotics necessary from colorectal standpoint
� Recommend DVT PPx
� Appreciate hospitalist
Subjective Data
Subjective Data
Date of Service: May 16, 2024
Patient states he feels well today. He has no nausea or vomiting. He is having liquid stools and some flatus in his bag. He has no abdominal pain.
Objective Data
-
Vital Signs
Temp Pulse Resp BP Pulse Ox
97.9 F 54 9 99/66 95
05/16/24 03:49 05/16/24 06:00 05/16/24 06:00 05/16/24 06:00 05/16/24 06:00
Intake & Output
05/15/24 05/16/24 05/17/24
06:59 06:59 06:59
Intake Total 2160 / 2160 3670 / 3670
Output Total 4800 / 4800 5230 / 5230 575 / 575
Balance -2640 / -2640 -1560 / -1560 -575 / -575
Intake:
Oral fluids 240 / 240 1190 / 1190
IV fluids (Total) 1600 / 1600 2310 / 2310
Amount instilled into GI Tube ( 320 / 320 170 / 170
Total)
[place] Sump 320 / 320 170 / 170
Output:
Liquid stool amount 300 / 300 2049 300 / 300
Ileostomy 300 / 300 2049 300 / 300
Gastrointestinal tube output ( 4100 / 4100 2400 / 2400
Total)
[place] Sump 4100 / 4100 2400 / 2400
Urine, Voided 400 / 400 780 / 780 275 / 275
Lab Results
05/16/24 03:52
05/16/24 03:52
Physical Exam
-
General: No Acute Distress and AOx3
Abdomen: Soft, Non Distended and Non Tender
[2024-05-16] MEDS: FLOMAX 0.4 MG PO (08:53)
[2024-05-16] MEDS: HEPARIN 5000 UNITS SC ×3 (08:53→23:30)
[2024-05-16] MEDS: PROGRAF 1 MG PO (08:53)
[2024-05-16] MEDS: NSS (PRESERVATIVE FREE) 10 ML IV (08:54)
[2024-05-16] MEDS: PROTONIX IV 40 MG IV (08:54)
--- NOTE | 2024-05-16 11:47 | CM ---
Patient with Hx ileostomy with Dx SBO, new Afib. Room air. NPO/IVF/NGT. NGT clamping trial.
Met with patient and Catarina;
the patient is hoping his NGT will be discontinued soon. He states he was ambulating in the halls today. Patient and would like for nurse visit due to new Afib- he chooses [facility].
Referral to [facility] Liaison.
Plan home with VN.
--- NOTE | 2024-05-16 13:13 | VNURNOTE ---
Home Health Liaison spoke with patient's Catarina to discuss [facility] nurse/therapy, visits, schedule and homebound status. She and Patient are agreeable and understand that visits at home will be 2-3 x per week to assess and teach medical management.
They are aware that [facility] will contact them for start of care in 1-2 days after discharge from . Will follow hospital course, [facility] referral completed in [facility].
--- NOTE | 2024-05-16 14:06 | W.PN.HOSP.TC ---
Today's Communication/Plan
-
Possible clamping trial today
lopressor iv
D51/2NS
Assessment / Plan
Assessment / Plan
General: Well Developed, Well Nourished and No Apparent Distress
HEENT: Normocephalic, Anicteric and Other (NG tube in place)
Respiratory: Clear and Non Labored Respirations
Cardiac: S1/S2 and Regular Rhythm
Breast: Deferred by me
GI: Soft and Tender (lower abd)
Rectal: Deferred by Provider
Genito-urinary: Clear Urine
Musculoskeletal: No Clubbing, No Cyanosis and No Edema
Skin: Warm and Dry
Neuro: AO x 3
Psych: Calm
#SBO-
�continue NG tube, possible clamping trial today
-Conservative management
-No evidence of perforation, infection at this time�discontinue abx and monitor
#Hyponatremia
- d5 1/2NS
-ctm
#New onset atrial fibrillation
� No anticoagulation with ongoing intra-abdominal process
� Back in sinus rhythm
�continue IV bb would transition to 25mg po of succinate qhs
-f/u outpatient cardiology - Dr Echevarria at [facility], if no further recurrent arrhythmia would allow the decision for DOAC to be made with her as an outpatient
� Echo�mild LVH, EF 60 to 65%
#Nonischemic myocardial injury
� No chest pain
� No wall motion abnormality on echo
� Cardiology was on board
� Follow-up outpatient
#Hypokalemia
� Monitor and replete
#Hyperlipidemia
� Continue statin
#Leukocytosis
� Most likely acute stress
� Continue to trend fever curve, white count
#History of Ischemic Colitis
#Permanent Diverting Ileostomy
- Patient with chronic diarrhea x 1 year and then admission September 2023 revealing sigmoid colitis - presumed ischemic.
- Underwent diverting ileostomy at that time.
- Re-look sigmoidoscopy March 2024 showed persistent inflammatory changes and ileostomy deemed irreversible as a result.
- Routine ostomy care - follow for increased output.
- Colorectal Surgery eval as noted above.
#Alpha-1 Antitrypsin Deficiency
#Cirrhosis s/p Liver Transplant
#Immunosuppressed State
- Stable. Continue current tacrolimus dosing.
- Follows annually at [facility] for his post-transplant care.
#BPH
- Stable. Continue tamsulosin.
- Bladder scan protocol.
#Intermediate density bilateral renal lesions which are unchanged from prior and may represent hemorrhagic/proteinaceous cyst measuring 1.4 cm on the right and 1.9 cm on the left..
-Further evaluation with MRI may be considered outpatient
DVT Prophylaxis: HSQ
Anticipated Discharge: > 48 hours
Subjective/Interval History
-
Date of Service: May 16, 2024
No events overnight
Objective Data
-
Labs:
Laboratory Results
05/16/24
03:52
WBC 9.0
Hgb 15.3
Hct 44.4
Plt Count 158
Sodium 142
Potassium 3.7
Chloride 106
Carbon Dioxide 24
BUN 23 H
Creatinine 0.9
Glucose 99
Calcium 9.1
Total Bilirubin 1.4 H
AST 45
ALT 31
Alkaline Phosphatase 89
Vital Signs:
Vital Signs
Temp Pulse Resp BP Pulse Ox
98.1 F 73 26 127/113 93
05/16/24 11:10 05/16/24 10:00 05/16/24 10:00 05/16/24 10:00 05/16/24 08:00
I&O
05/15/24 05/16/24 05/17/24
06:59 06:59 06:59
Intake Total 2160 / 2160 3670 / 3670
Output Total 4800 / 4800 5230 / 5230 575 / 575
Balance -2640 / -2640 -1560 / -1560 -575 / -575
Review of Systems
-
History Source: Patient
All other systems: Not reviewed unless documented
Physical Exam
-
General: No Apparent Distress
HEENT: Normocephalic and Atraumatic
Respiratory: Negative Wheezes
Cardiac: Regular Rhythm and S1/S2
GI: Soft
Genito-urinary: No Costovertebral Tender
Psych: Calm
Data Reviewed
-
Diagnostic Radiology: Image personally visualized and interpreted and Report Reviewed by me
CT Scan: Image personally visualized and interpreted and Report Reviewed by me
Labs: Labs Reviewed by me
--- NOTE | 2024-05-16 14:35 | PTCARENOTE ---
NGT residual 40ml- removed without difficulty. Encouraged NPO few ice chips at bedside for moisture.
[2024-05-16] MEDS: LOPRESSOR 2.5 MG IV (17:00)
[2024-05-17] VITALS (10 sets, daily range): BP systolic 93–127; BP diastolic 61–104; BMI 31.7
--- NOTE | 2024-05-17 01:18 | PTCARENOTE ---
Pt having output from ileostomy (see work list). Pt had no complaints at this time. Assessment care and vitals as charted.
[2024-05-17 04:51] LABS: Hemoglobin 14.9 g/dL (13.0-18.0); Mean Corp Hgb Conc. 35.5 g/dL (33.0-37.0); Mean Corpuscular Hgb 29.4 pg (27.0-31.0); Mean Platelet Volume 9.5 fL (7.4-10.4); Platelet Count 176 10^3/uL (130-400); Red Blood Cell Count 5.06 10^6/uL (4.70-6.10); Red Cell Dist. Width 14.4 % (11.5-14.5)
[2024-05-17 05:17] LABS: ALT (SGPT) 37 U/L (0-50); AST (SGOT) 42 U/L (17-59); Albumin 3.8 g/dl (3.5-5.0); Alkaline Phosphatase 96 U/L (38-126); Blood Urea Nitrogen 22 mg/dl (9-20); Calcium 9.2 mg/dl (8.4-10.2); Carbon Dioxide 24 mmol/L (22-30); Chloride 105 mmol/L (98-107); Estimated Creatinine Clearance 74 ml/min; Glucose 86 mg/dl (70-99); Potassium 3.6 mmol/L (3.5-5.1); Sodium 141 mmol/L (135-145); Total Bilirubin 1.3 mg/dl (0.2-1.3); eGFR > 60.00
[2024-05-17] MEDS: LOPRESSOR IV ×4 (05:59→23:00)
[2024-05-17] MEDS: PROGRAF 1 MG PO (08:06)
[2024-05-17] MEDS: FLOMAX 0.4 MG PO (08:06)
[2024-05-17] MEDS: HEPARIN 5000 UNITS SC ×3 (08:06→23:00)
[2024-05-17] MEDS: NSS (PRESERVATIVE FREE) 10 ML IV (08:07)
[2024-05-17] MEDS: PROTONIX IV 40 MG IV (08:07)
[2024-05-17] MEDS: D5/0.45%NACL 1000 IV ×2 (11:06→22:32)
--- NOTE | 2024-05-17 12:59 | W.PN.HOSP.TC ---
Today's Communication/Plan
-
advance to cld and monitor tolerability
anticipate switching back to po medications within 24 hours if tolerating diet
Assessment / Plan
Assessment / Plan
General: Well Developed, Well Nourished and No Apparent Distress
HEENT: Normocephalic, Anicteric and Other (NG tube in place)
Respiratory: Clear and Non Labored Respirations
Cardiac: S1/S2 and Regular Rhythm
Breast: Deferred by me
GI: Soft and Tender (lower abd)
Rectal: Deferred by Provider
Genito-urinary: Clear Urine
Musculoskeletal: No Clubbing, No Cyanosis and No Edema
Skin: Warm and Dry
Neuro: AO x 3
Psych: Calm
#SBO-
�NG tube out; adv to CLD
-Conservative management
-No evidence of perforation, infection at this time�discontinue abx and monitor
#Hyponatremia
- d5 1/2NS
-ctm; most likely can dc within 24-48 hours if tolerating diet
#New onset atrial fibrillation
� No anticoagulation with ongoing intra-abdominal process
� Back in sinus rhythm
�continue IV bb would transition to 25mg po of succinate qhs
-f/u outpatient cardiology - Dr Echevarria at [facility], if no further recurrent arrhythmia would allow the decision for DOAC to be made with her as an outpatient
� Echo�mild LVH, EF 60 to 65%
#Nonischemic myocardial injury
� No chest pain
� No wall motion abnormality on echo
� Cardiology was on board
� Follow-up outpatient
#Hypokalemia
� Monitor and replete
#Hyperlipidemia
� Continue statin
#Leukocytosis
� Most likely acute stress
� Continue to trend fever curve, white count
#History of Ischemic Colitis
#Permanent Diverting Ileostomy
- Patient with chronic diarrhea x 1 year and then admission September 2023 revealing sigmoid colitis - presumed ischemic.
- Underwent diverting ileostomy at that time.
- Re-look sigmoidoscopy March 2024 showed persistent inflammatory changes and ileostomy deemed irreversible as a result.
- Routine ostomy care - follow for increased output.
- Colorectal Surgery eval as noted above.
#Alpha-1 Antitrypsin Deficiency
#Cirrhosis s/p Liver Transplant
#Immunosuppressed State
- Stable. Continue current tacrolimus dosing.
- Follows annually at [facility] for his post-transplant care.
#BPH
- Stable. Continue tamsulosin.
- Bladder scan protocol.
#Intermediate density bilateral renal lesions which are unchanged from prior and may represent hemorrhagic/proteinaceous cyst measuring 1.4 cm on the right and 1.9 cm on the left..
-Further evaluation with MRI may be considered outpatient
DVT Prophylaxis: HSQ
Anticipated Discharge: 24 - 48 hours
Subjective/Interval History
-
Date of Service: May 17, 2024
NG tube out, tolerating well
Objective Data
-
Labs:
Laboratory Results
05/17/24
04:20
WBC 8.0
Hgb 14.9
Hct 42.0
Plt Count 176
Sodium 141
Potassium 3.6
Chloride 105
Carbon Dioxide 24
BUN 22 H
Creatinine 0.9
Glucose 86
Calcium 9.2
Total Bilirubin 1.3
AST 42
ALT 37
Alkaline Phosphatase 96
Vital Signs:
Vital Signs
Temp Pulse Resp BP Pulse Ox
97.9 F 53 12 93/79 97
05/17/24 11:20 05/17/24 06:12 05/17/24 06:12 05/17/24 06:12 05/16/24 20:18
I&O
05/16/24 05/17/24 05/18/24
06:59 06:59 06:59
Intake Total 3670 / 3670 2160 / 2160
Output Total 5230 / 5230 1825 / 1825 625 / 625
Balance -1560 / -1560 335 / 335 -625 / -625
Review of Systems
-
History Source: Patient
All other systems: Not reviewed unless documented
Data Reviewed
-
Diagnostic Radiology: Image personally visualized and interpreted and Report Reviewed by me
CT Scan: Image personally visualized and interpreted and Report Reviewed by me
Labs: Labs Reviewed by me
--- NOTE | 2024-05-17 15:20 | W.PN.GS2 ---
Addendum entered and electronically signed by Robinson Parikh MD 05/17/24 15:38:
I saw and examined the patient.
The Senior Research Scientist's note was reviewed and I agree with the note.
Comment: Improving. Stool and gas in the appliance. Denies n/v. Ab exam otherwise unremarkable. Trial cld
Original Note:
Today's Communication / Plan
-
trial of clears
Assessment / Plan
-
79-year-old male with PMH of severe proctocolitis s/p diverting loop ileostomy in September 2023 presenting with SBO likely adhesive which is improving with nonoperative management.
AFVSS
Labs stable
Stoma functioning. No n/v since removal of NGT on 05/16
--Trial of clears
--Analgesics/antiemetics prn
--Medical management as per primary team
Subjective Data
-
Date of Service: May 17, 2024
Patient seen and examined at bedside with Dr. Parikh. Denies n/v. Passing stool/flatus from stoma. Appetite starting to return. at bedside and questions addressed
Objective Data
-
Intake and Output
05/16/24 05/17/24 05/18/24
06:59 06:59 06:59
Intake Total 3670 / 3670 2160 / 2160
Output Total 5230 / 5230 1825 / 1825 625 / 625
Balance -1560 / -1560 335 / 335 -625 / -625
Intake:
Oral fluids 1190 / 1190 360 / 360
IV fluids (Total) 2310 / 2310 1800 / 1800
Amount instilled into GI Tube ( 170 / 170
Total)
[place] Sump 170 / 170
Output:
Liquid stool amount 2049 900 / 900 200 / 200
Ileostomy 2049 900 / 900 200 / 200
Gastrointestinal tube output ( 2400 / 2400
Total)
[place] Sump 2400 / 2400
Urine, Voided 780 / 780 925 / 925 425 / 425
Vital Signs
Temp Pulse Resp BP Pulse Ox
97.9 F 64 24 97/76 97
05/17/24 11:20 05/17/24 14:00 05/17/24 14:00 05/17/24 14:00 05/16/24 20:18
Lab Results
05/17/24 04:20
05/17/24 04:20
Calcium 9.2 mg/dl (8.4-10.2) 05/17/24 04:20
Magnesium 1.8 mg/dl (1.6-2.3) 05/15/24 03:37
Total Bilirubin 1.3 mg/dl (0.2-1.3) 05/17/24 04:20
AST 42 U/L (17-59) 05/17/24 04:20
ALT 37 U/L (0-50) 05/17/24 04:20
Alkaline Phosphatase 96 U/L (38-126) 05/17/24 04:20
Total Protein 7.0 g/dl (6.3-8.2) 05/17/24 04:20
Albumin 3.8 g/dl (3.5-5.0) 05/17/24 04:20
Physical Exam
-
NAD
ABD soft, mild distention, stoma pink with stool/flatus in appliance
[2024-05-18] VITALS (9 sets, daily range): BP systolic 98–116; BP diastolic 55–78; BMI 31.9
--- NOTE | 2024-05-18 01:33 | PTCARENOTE ---
Pt had no complaints this shift. Pt completing self care for ileostomy. Assessment care and vitals as charted.
[2024-05-18 05:12] LABS: Hematocrit 41.3 % (39.0-52.0); Hemoglobin 14.4 g/dL (13.0-18.0); Mean Corp Hgb Conc. 34.9 g/dL (33.0-37.0); Mean Corpuscular Hgb 29.8 pg (27.0-31.0); Mean Corpuscular Volume 85.5 fL (80.0-94.0); Mean Platelet Volume 9.7 fL (7.4-10.4); Platelet Count 156 10^3/uL (130-400); Red Blood Cell Count 4.83 10^6/uL (4.70-6.10); White Blood Cell Count 7.7 10^3/uL (4.8-10.8)
[2024-05-18 05:36] LABS: ALT (SGPT) 36 U/L (0-50); AST (SGOT) 35 U/L (17-59); Albumin 3.4 g/dl (3.5-5.0); Alkaline Phosphatase 92 U/L (38-126); Blood Urea Nitrogen 16 mg/dl (9-20); Calcium 8.8 mg/dl (8.4-10.2); Carbon Dioxide 23 mmol/L (22-30); Chloride 104 mmol/L (98-107); Estimated Creatinine Clearance 84 ml/min; Glucose 98 mg/dl (70-99); Magnesium 1.8 mg/dl (1.6-2.3); Potassium 3.4 mmol/L (3.5-5.1); Sodium 138 mmol/L (135-145); Total Protein 6.4 g/dl (6.3-8.2); eGFR > 60.00
[2024-05-18] MEDS: LOPRESSOR IV ×3 (05:58→16:39)
[2024-05-18] MEDS: FLOMAX 0.4 MG PO (07:56)
[2024-05-18] MEDS: PROGRAF 1 MG PO (07:56)
[2024-05-18] MEDS: HEPARIN 5000 UNITS SC ×3 (07:57→22:40)
[2024-05-18] MEDS: NSS (PRESERVATIVE FREE) 10 ML IV (08:01)
[2024-05-18] MEDS: PROTONIX IV 40 MG IV (08:01)
[2024-05-18] MEDS: KCL 270 MEQ IV (08:44)
[2024-05-18] MEDS: D5/0.45%NACL 1000 IV (11:46)
--- NOTE | 2024-05-18 11:57 | W.PN.GS2 ---
Addendum entered and electronically signed by Robinson Parikh MD 05/18/24 14:28:
I saw and examined the patient.
The Pr Intern's note was reviewed and I agree with the note.
Comment: Improving. Denies abd pain. Stoma functioning. Exam benign. Adv to LRD. OK for DC when tolerating from surg standpoint
Original Note:
Today's Communication / Plan
-
LRD
Assessment / Plan
-
79-year-old male with PMH of severe proctocolitis s/p diverting loop ileostomy in September 2023 presenting with SBO likely adhesive which is improving with nonoperative management.
AFVSS
Labs stable
Stoma functioning. No n/v since removal of NGT on 05/16
--Advance to LRD
--Analgesics/antiemetics prn
--Medical management/dispo planning as per primary team
Subjective Data
-
Date of Service: May 18, 2024
Patient seen and examined at bedside with Dr. Parikh. OOB/showering. Offering no complaints. Denies pain, nausea or vomiting.
Objective Data
-
Intake and Output
05/17/24 05/18/24 05/19/24
06:59 06:59 06:59
Intake Total 2160 / 2160 1500 / 1500
Output Total 1825 / 1825 2475 / 2475
Balance 335 / 335 -975 / -975
Intake:
Oral fluids 360 / 360 600 / 600
IV fluids (Total) 1800 / 1800 900 / 900
Output:
Liquid stool amount 900 / 900 1300 / 1300
Ileostomy 900 / 900 1300 / 1300
Urine, Voided 925 / 925 1175 / 1175
Vital Signs
Temp Pulse Resp BP Pulse Ox
97.6 F 72 20 104/78 97
05/18/24 07:20 05/18/24 11:12 05/18/24 11:12 05/18/24 08:00 05/17/24 22:41
Lab Results
05/18/24 04:55
05/18/24 04:55
Calcium 8.8 mg/dl (8.4-10.2) 05/18/24 04:55
Magnesium 1.8 mg/dl (1.6-2.3) 05/18/24 04:55
Total Bilirubin 1.0 mg/dl (0.2-1.3) 05/18/24 04:55
AST 35 U/L (17-59) 05/18/24 04:55
ALT 36 U/L (0-50) 05/18/24 04:55
Alkaline Phosphatase 92 U/L (38-126) 05/18/24 04:55
Total Protein 6.4 g/dl (6.3-8.2) 05/18/24 04:55
Albumin 3.4 g/dl (3.5-5.0) L 05/18/24 04:55
--- NOTE | 2024-05-18 13:25 | W.PN.HOSP.TC ---
Today's Communication/Plan
-
Advance to low residue diet
Switch from IV Lopressor to Toprol nightly
Discontinue D5 1/2 NS
Assessment / Plan
Assessment / Plan
General: Well Developed, Well Nourished and No Apparent Distress
HEENT: Normocephalic, Anicteric
Respiratory: Clear and Non Labored Respirations
Cardiac: S1/S2 and Regular Rhythm
Breast: Deferred by me
GI: Soft and Tender (lower abd)
Rectal: Deferred by Provider
Genito-urinary: Clear Urine
Musculoskeletal: No Clubbing, No Cyanosis and No Edema
Skin: Warm and Dry
Neuro: AO x 3
Psych: Calm
#SBO-
�NG tube out; tolerating clear liquid diet, advance to low residue diet
-Conservative management
-No evidence of perforation, infection at this time�discontinue abx and monitor
#Hypernatremia
- d5 1/2NS - dc as tolerating diet
#New onset atrial fibrillation
� No anticoagulation with ongoing intra-abdominal process
� Back in sinus rhythm
�continue IV bb would transition to 25mg po of succinate qhs now that tolerating diet
-f/u outpatient cardiology - Dr Echevarria at [facility], if no further recurrent arrhythmia would allow the decision for DOAC to be made with her as an outpatient
� Echo�mild LVH, EF 60 to 65%
#Nonischemic myocardial injury
� No chest pain
� No wall motion abnormality on echo
� Cardiology was on board
� Follow-up outpatient
#Hypokalemia
� Monitor and replete
#Hyperlipidemia
� Continue statin
#Leukocytosis
� Most likely acute stress
� Continue to trend fever curve, white count
#History of Ischemic Colitis
#Permanent Diverting Ileostomy
- Patient with chronic diarrhea x 1 year and then admission September 2023 revealing sigmoid colitis - presumed ischemic.
- Underwent diverting ileostomy at that time.
- Re-look sigmoidoscopy March 2024 showed persistent inflammatory changes and ileostomy deemed irreversible as a result.
- Routine ostomy care - follow for increased output.
- Colorectal Surgery eval as noted above.
#Alpha-1 Antitrypsin Deficiency
#Cirrhosis s/p Liver Transplant
#Immunosuppressed State
- Stable. Continue current tacrolimus dosing.
- Follows annually at [facility] for his post-transplant care.
#BPH
- Stable. Continue tamsulosin.
- Bladder scan protocol.
#Intermediate density bilateral renal lesions which are unchanged from prior and may represent hemorrhagic/proteinaceous cyst measuring 1.4 cm on the right and 1.9 cm on the left..
-Further evaluation with MRI may be considered outpatient
DVT Prophylaxis: HSQ
Anticipated Discharge: Within 24 hours
Subjective/Interval History
-
Date of Service: May 18, 2024
Tolerating clear liquid diet
Objective Data
-
Labs:
Laboratory Results
05/18/24
04:55
WBC 7.7
Hgb 14.4
Hct 41.3
Plt Count 156
Sodium 138
Potassium 3.4 L
Chloride 104
Carbon Dioxide 23
BUN 16
Creatinine 0.8
Glucose 98
Calcium 8.8
Total Bilirubin 1.0
AST 35
ALT 36
Alkaline Phosphatase 92
Vital Signs:
Vital Signs
Temp Pulse Resp BP Pulse Ox
97.6 F 72 20 104/78 97
05/18/24 07:20 05/18/24 11:12 05/18/24 11:12 05/18/24 08:00 05/17/24 22:41
I&O
05/17/24 05/18/24 05/19/24
06:59 06:59 06:59
Intake Total 2160 / 2160 1500 / 1500
Output Total 1825 / 1825 2475 / 2475
Balance 335 / 335 -975 / -975
Review of Systems
-
History Source: Patient
All other systems: Not reviewed unless documented
Data Reviewed
-
Diagnostic Radiology: Image personally visualized and interpreted and Report Reviewed by me
CT Scan: Image personally visualized and interpreted and Report Reviewed by me
Labs: Labs Reviewed by me
--- NOTE | 2024-05-18 15:37 | CM ---
Reviewed the chart notes and spoke with the patient and his spouse at the bedside. IMM reviewed and placed on chart. CM continues to be available to patient/family and is monitoring medical plan for needs at discharge.
Plan: Discharge to home when medically stable with VN services.
[2024-05-18] MEDS: TOPROL XL 25 MG PO (16:40)
[2024-05-19] VITALS (7 sets, daily range): BP systolic 92–109; BP diastolic 58–80; BMI 31.9
[2024-05-19 03:47] LABS: Hemoglobin 13.4 g/dL (13.0-18.0); Mean Corp Hgb Conc. 35.3 g/dL (33.0-37.0); Mean Corpuscular Hgb 29.3 pg (27.0-31.0); Mean Corpuscular Volume 83.2 fL (80.0-94.0); Platelet Count 173 10^3/uL (130-400); Red Blood Cell Count 4.57 10^6/uL (4.70-6.10); White Blood Cell Count 8.1 10^3/uL (4.8-10.8)
[2024-05-19 04:11] LABS: ALT (SGPT) 36 U/L (0-50); AST (SGOT) 34 U/L (17-59); Albumin 3.4 g/dl (3.5-5.0); Alkaline Phosphatase 104 U/L (38-126); Blood Urea Nitrogen 15 mg/dl (9-20); Carbon Dioxide 25 mmol/L (22-30); Chloride 106 mmol/L (98-107); Estimated Creatinine Clearance 74 ml/min; Glucose 79 mg/dl (70-99); Magnesium 1.8 mg/dl (1.6-2.3); Potassium 4.1 mmol/L (3.5-5.1); Sodium 139 mmol/L (135-145); Total Bilirubin 0.7 mg/dl (0.2-1.3); Total Protein 6.4 g/dl (6.3-8.2); eGFR > 60.00
--- NOTE | 2024-05-19 06:45 | PTCARENOTE ---
no acute events overnight. pt able to make needs known. able to walk into bathroom by self without issues. emptying ileostomy by self in bathroom without issues.
[2024-05-19] MEDS: FLOMAX 0.4 MG PO (07:49)
[2024-05-19] MEDS: PROTONIX 40 MG PO (07:49)
[2024-05-19] MEDS: PROGRAF 1 MG PO (07:49)
[2024-05-19] MEDS: HEPARIN 5000 UNITS SC (07:50)
--- NOTE | 2024-05-19 08:42 | W.PN.HOSP.TC ---
Today's Communication/Plan
-
dc
Assessment / Plan
Assessment / Plan
Physical exam:
General: Well Developed, Well Nourished and No Apparent Distress
HEENT: Normocephalic, Anicteric
Respiratory: Clear and Non Labored Respirations
Cardiac: S1/S2 and Regular Rhythm
GI: Soft and not Tender.
Rectal: no rectal bleeding
Genito-urinary: Clear Urine
Musculoskeletal: No Clubbing, No Cyanosis and No Edema
Skin: Warm and Dry
Neuro: AO x 3
Psych: Calm
#SBO-
� resolving, tolerated low residue diet. No nausea or abd pain
-Conservative management per surgery, ok to go home , ok to start systemic anti-coagulation.
-No evidence of perforation, infection at this time�discontinue abx and monitor
#Hypernatremia
resolved.
#New onset atrial fibrillation
� No anticoagulation with ongoing intra-abdominal process
� Back in sinus rhythm
�continue IV bb would transition to 25mg po of succinate qhs
-f/u outpatient cardiology - Dr Echevarria at [facility], if no further recurrent arrhythmia
I d/w pt regarding potential side effects of systemic anticoagulation and potential benefits. Surgery okay to start systemic anticoagulation. Patient wanted to start anticoagulation to reduce risk of stroke. CHADS2- VACs score around 2.
Discussed with clinical assistant. Patient will follow with his primary clinical assistant as outpatient.
Patient felt comfortable to make this decision by himself. � Echo�mild LVH, EF 60 to 65%
#Nonischemic myocardial injury
� No chest pain
� No wall motion abnormality on echo
� Cardiology was on board
� Follow-up outpatient
#Hypokalemia
� Monitor and replete
#Hyperlipidemia
� Continue statin
#Leukocytosis
� Most likely acute stress
� Continue to trend fever curve, white count
#History of Ischemic Colitis
#Permanent Diverting Ileostomy
- Patient with chronic diarrhea x 1 year and then admission September 2023 revealing sigmoid colitis - presumed ischemic.
- Underwent diverting ileostomy at that time.
- Re-look sigmoidoscopy March 2024 showed persistent inflammatory changes and ileostomy deemed irreversible as a result.
- Routine ostomy care - follow for increased output.
- Colorectal Surgery eval as noted above. Patient will follow-up with surgery in outpatient setting.
#Alpha-1 Antitrypsin Deficiency
#Cirrhosis s/p Liver Transplant
#Immunosuppressed State
- Stable. Continue current tacrolimus dosing.
- Follows annually at [facility] for his post-transplant care.
#BPH
- Stable. Continue tamsulosin.
- Bladder scan protocol.
#Intermediate density bilateral renal lesions which are unchanged from prior and may represent hemorrhagic/proteinaceous cyst measuring 1.4 cm on the right and 1.9 cm on the left..
-Further evaluation with MRI may be considered outpatient
DVT Prophylaxis: HSQ
Total discharge time spent to see the patient, examine the patient on the floor, review data and lab results, discuss the discharge plan with the patient, clinical assistant, surgery, nursing staff around 65 minutes
Anticipated Discharge: Today
Subjective/Interval History
-
Date of Service: May 19, 2024
Doing well
tolerating diet
would like to go home
Objective Data
-
Labs:
Laboratory Results
05/19/24
03:21
WBC 8.1
Hgb 13.4
Hct 38.0 L
Plt Count 173
Sodium 139
Potassium 4.1
Chloride 106
Carbon Dioxide 25
BUN 15
Creatinine 0.9
Glucose 79
Calcium 9.0
Total Bilirubin 0.7
AST 34
ALT 36
Alkaline Phosphatase 104
Vital Signs:
Vital Signs
Temp Pulse Resp BP Pulse Ox
97.7 F 51 17 102/58 98
05/19/24 07:48 05/19/24 06:00 05/19/24 06:00 05/19/24 06:00 05/18/24 20:34
I&O
05/18/24 05/19/24 05/20/24
06:59 06:59 06:59
Intake Total 1500 / 1500 660 / 660
Output Total 3605 / 2475 2725 / 5
Balance -975 / -975 -2064 / -2064
--- NOTE | 2024-05-19 09:09 | W.PN.CRS1 ---
Today's Communication / Plan
-
ok for d/c from our perspective
follow up in the office with Dr. Alexander in 2 weeks
Assessment/Plan
-
79-year-old male with PMH of severe proctocolitis (being worked up as outpatient, endoscopic biopsies consistent with acute inflammation concerning for possible ischemic colitis per GI, pending a CTA; s/p diverting loop ileostomy September 2023),
alpha 1 antitrypsin s/p liver transplant 26 years ago, liver cirrhosis, HTN who presents with nausea/vomiting and abdominal distention, CT showing RLQ diverting ileostomy with parastomal hernia containing nonobstructed small bowel, dilated loops
proximally concerning for SBO, WBC 20.8; admitted for nonoperative management of SBO with NGT and bowel rest
AFVSS
WBC 8.1
- Tolerating a diet post NGT removal
� Encourage IS, ambulate at least twice daily
� On heparin subq for DVT PPx
� Appreciate hospitalist
- Okay for discharge from our perspective when cleared by hospitalist. Will need to follow up in the office with Dr. Alexander in 2 weeks for further surgical planning.
Subjective Data
Subjective Data
Date of Service: May 19, 2024
Patient states he has no bloating. He denies nausea or vomiting. He is tolerating a diet. He overall feels well. His ileostomy is producing liquid stool.
Objective Data
-
Vital Signs
Temp Pulse Resp BP Pulse Ox
97.7 F 51 17 102/58 98
05/19/24 07:48 05/19/24 06:00 05/19/24 06:00 05/19/24 06:00 05/18/24 20:34
Intake & Output
05/18/24 05/19/24 05/20/24
06:59 06:59 06:59
Intake Total 1500 / 1500 660 / 660
Output Total 2475 / 2475 2725 / 2725
Balance -975 / -975 -2064 /
Intake:
Oral fluids 600 / 600 660 / 660
IV fluids (Total) 900 / 900
Output:
Liquid stool amount 1300 / 1300 1325 / 1325
Ileostomy 1300 / 1300 1325 / 1325
Urine, Voided 1175 / 1175 1400 / 1400
Lab Results
05/19/24 03:21
05/19/24 03:21
Physical Exam
-
General: No Acute Distress and AOx3
Abdomen: Soft, Non Distended, Non Tender and Other (ileostomy warm and pink with liquid output)
Skin: Warm and Dry
--- NOTE | 2024-05-19 14:24 | W.DCSUMMARY ---
Discharge Summary
Discharge Data
Date of Admission: 05/12/24
Date of Discharge: 05/19/24
-
Pending Results: No
Hospital Course
79 years old male with history of diverting loop ileostomy presented to the emergency room with abdominal pain and vomiting. Scan of the abdomen and pelvis showed right lower quadrant diverting ileostomy with small bowel obstruction, right lower
quadrant parastomal hernia contains a loop of non-obstructed bowel. Nasogastric was placed in the emergency room. He was restarted on empiric intravenous antibiotic. Patient was seen by colorectal surgery. Patient was admitted to the hospital to
continue diet restriction, parastomal hernia reduction and nasogastric tube decompression. He received intravenous fluids. Small bowel obstruction started to resolve with nonoperative management. Diet was started to slowly. Nasogastric tube was
discontinued with no nausea or abdominal pain. Patient had a brief episode of paroxysmal atrial fibrillation / atrial flutter on admission. He was evaluated by house carpenter helper. Patient was started on Toprol to control heart rate. Rhythm converted
to sinus rhythm. Echocardiogram showed mild left ventricular hypertrophy with ejection fraction of 60 to 65%. Surgery recommended outpatient follow-up. No contraindication to systemic anticoagulation per surgery. Anticoagulation option discussed
with the patient and house carpenter helper, and after reviewing potential risks and benefits of systemic anticoagulation with the patient, patient wanted to be started on oral anticoagulation therapy and he was going to follow-up with his primary
house carpenter helper Dr. Vera. Patient remained hemodynamically stable. He was ambulating independently. He was discharged in a stable condition.
Discharge Plan
-
Patient Disposition: Home (Routine Discharge)
Discharge Diagnosis/Procedures: SBO, concern for transition point in parastomal hernia, s/p parastomal hernia reduction, to follow up with surgery.
-Atrial fibrillation/Atrial flutter - new onset in the ER 05/12/24. asymptomatic. Converted to Sinus rhythm. [id number] VASc score is 2 (age). echo 05/13/24 with normal LVEF 60-65%, Dilated ascending aorta at 4.2cm. You were started on new medications
called Toprol ( B lydia-rate control and Pradaxa- blood thinner for stroke prevention).
Diet: Low Fiber
Referrals:
Nery Vera MD [Non-Admitting Privileges] - in one to two weeks
Fam Alexander MD [Active] - in two weeks
Eric Tirado MD [Family Provider] -
Prescriptions:
New
metoprolol succinate 25 mg Tablet Extended Release 24 Hr
25 mg PO QPM Qty: 30 0RF
dabigatran etexilate [Pradaxa] 150 mg capsule
150 mg PO BID Qty: 60 0RF
Continued
tacrolimus 1 mg Capsule
1 mg PO DAILY
cholecalciferol (vitamin D3) 25 mcg (1,000 unit) Capsule
25 mcg PO DAILY
cetirizine 10 mg Capsule
10 mg PO DAILY
dutasteride-tamsulosin 0.5-0.4 mg Capsule, Er Multiphase 24 Hr
1 cap PO DAILY
acetaminophen [Tylenol] 325 mg Tablet
650 mg PO Q6HPRN PRN (Reason: lower back pain)
therapeutic multivitamin Tablet
1 tab PO DAILY
atorvastatin 40 mg Tablet
40 mg PO DAILY
Discharge Orders:
Discharge Patient (As Directed); Ordered 05/19/24
Ordered By: Lashanda Davies
Discharge Date and Time
Discharge Date/Time: 05/19/24 13:54
Print Language: URDU
== END 2024-05-19 13:54 | disposition home health service (06) | DRG 389 ==
LOC: IMU 20:48
PROVIDERS: Internal Medicine; Radiology Neuroradiology; ADMITTING PHYSICIAN Hospitalist; ATTENDING PHYSICIAN Internal Medicine; EMERGENCY PHYSICIAN Emergency Medicine; FAMILY PHYSICIAN Internal Medicine; OTHER PHYSICIAN Internal Medicine Cardiovascular Disease; OTHER PHYSICIAN Surgery
PROC: 0D9670Z Drainage of Stomach with Drainage Device, Via Natural or Artificial Opening (ICD-10-PCS; 2024-05-12)
DX: K56.50 Intestinal adhesions [bands], unspecified as to partial versus complete obstruction (principal); D84.821 Immunodeficiency due to drugs; Z94.4 Liver transplant status; I48.92 Unspecified atrial flutter; E87.20 Acidosis, unspecified; E87.0 Hyperosmolality and hypernatremia; I5A Non-ischemic myocardial injury (non-traumatic); E78.00 Pure hypercholesterolemia, unspecified; I48.0 Paroxysmal atrial fibrillation; K43.5 Parastomal hernia without obstruction or gangrene; E88.01 Alpha-1-antitrypsin deficiency; J30.1 Allergic rhinitis due to pollen; R61 Generalized hyperhidrosis; E86.1 Hypovolemia; R07.89 Other chest pain; I10 Essential (primary) hypertension; E87.6 Hypokalemia; N40.0 Benign prostatic hyperplasia without lower urinary tract symptoms; K74.60 Unspecified cirrhosis of liver; I34.81 Nonrheumatic mitral (valve) annulus calcification; I77.819 Aortic ectasia, unspecified site; Z96.652 Presence of left artificial knee joint; Z96.641 Presence of right artificial hip joint; Z93.2 Ileostomy status; Z82.49 Family history of ischemic heart disease and other diseases of the circulatory system; Z84.1 Family history of disorders of kidney and ureter; Z88.1 Allergy status to other antibiotic agents; Z79.621 Long term (current) use of calcineurin inhibitor; Z87.19 Personal history of other diseases of the digestive system
CPT/HCPCS: 71045; 74019; 74022; 74177; 74250; 80048; 80053; 80197; 83605; 83690; 83735; 84443; 84484; 85027; 86850; 86900; 86901; 93005; 93306; 96361; 96374; 96375; 96376; 99285; Q9967

== ENCOUNTER → 2024-06-17 10:52 | Outpatient (REF) | payer MEDICARE, OTHER, SELFPAY ==
[2024-06-21 18:51] LABS: HPV, High Risk Not Detected; HPV, High Risk Source Anal
== END ==
LOC: CLAB 10:52
PROVIDERS: ATTENDING PHYSICIAN Physician Assistant
DX: Z94.4 Liver transplant status (principal)
CPT/HCPCS: 87624; 88112

== ENCOUNTER 2024-09-14 13:42 | Inpatient (IN) | payer MEDICARE, OTHER, SELFPAY ==
[2024-09-14 09:09] VITALS: BP 123/89; BMI 31.9
--- NOTE | 2024-09-14 10:11 | ED.GENMED ---
History of Present Illness
General
Chief Complaint: Ostomy Problem
Source: patient
Exam Limitations: none
Time Seen by Provider: 09/14/24 09:31
Nursing documentation reviewed up to this point in time: agreed with
History of Present Illness
History of Present Illness:
79 y/o M with h/o diverting loop ileostomy sep 2022 after colectomy with h/o SBO and RLQ parastomal hernia
here with similar episode of pain, rlq, nauesa, vomiting x 1 this morningn and bloating similar to his SBO
pt says pain started first at 10 pm last night and was constant all night and then he vomited once this morning
he had previous treatment with NGT
pt says he has a known hernia that he has seen dr. lowe for but his original surgery was done by dr. regan
no fever, chills
Past History
Past History
ED Past Medical History: Hypercholesterolemia and Other (Liver transplant, ostomy, ischemic colitis)
ED Past Surgical History: Orthopedic, Tonsilectomy and Other
Social History
Tobacco: Non-smoker
Alcohol: None
Drug: None
Personal:
Living: with family
Phy Exam
Physical Exam
Physical Exam:
GENERAL: Alert , in no apparent distress
EYE: pupils equal and reactive
NECK: Supple
ENT: o/p clr, mmm.
CARDIAC: Regular rate and rhythm .
LUNGS: Clear breath sounds bilaterally, no acute respiratory distress, no wheezes/rales/rhonchi
ABDOMEN: moderate distension, hyperactive bowel sounds
ostomy pink with notm uch in the bag
tender RLQ;
no obvious hernia
NEUROLOGICAL: Alert and oriented, no focal neuro deficits
SKIN: Warm and dry, skin intact.
MUSCULOSKELETAL: No edema, well perfused.
PSYCH: Normal and appropriate interaction.
Course
Orders/Labs/Results
Orders:
Orders
09/14/24 09:55
HYDROmorphone [Dilaudid] 0.5 mg IV NOW STA
Iohexol [Omnipaque] See Protocol PO NOW STA
Ondansetron Injectable [Zofran] 4 mg IV NOW STA
09/14/24 09:56
CT Abd/pel W Iv And Oral Contr Urgent
Comment:
Reason For Exam: abd pain, no ostomy output, vomiting;
09/14/24 10:20
Complete Blood Count/With Diff Urgent
PTT Urgent
Prothrombin Time Urgent
09/14/24 10:50
Comprehensive Metabolic Panel Urgent
Lipase Urgent
09/14/24 11:41
Ondansetron Injectable [Zofran] 4 mg .ROUTE .STK-MED ONE
09/14/24 11:46
Lactic Acid Urgent
Blood Culture Urgent
JW Source: Blood/Venous
Specimen Description:
Blood Culture Urgent
JW Source: Blood/Venous
Specimen Description:
09/14/24 11:47
Ondansetron Injectable [Zofran] 4 mg IV NOW STA
09/14/24 13:08
NG Tube [GI tube insertion- Treatment] ONCE
Piperacillin/Tazo 3.375 Gram [Zosyn] 3.375 gram in 50 ml IV NOW
09/14/24 13:13
0.9% Sodium Chloride 1000 ml [Nss] 1,000 ml IV BOLUS
09/14/24 13:30
Admit/Transfer Patient As Directed
Co-Sign Provider:
Level of Care: Inpatient admission
Assign to:: Medical/Surgical
Physician / Group: kathy
Diagnosis: SBO
Reason for Hospitalization: SBO
Expected length of stay greater than two midnights?: Yes
ELOS- Estimated Length of Stay in days: 2
I certify the patient meets the requirements for IP care: Yes
Code Status As Directed
Resuscitation Status: Full Code
PRN Pain Medication Management As Directed
May give lesser potent ordered pain med per pt: Yes
preference::
Protocol:: Medication orders for pain may be administered in a
manner that supports deferring to patient preference
when the pt is:
- Requesting an ordered lesser potent pain medication.
Least to most potent pain medications are defined
as: acetaminophen < NSAID < tramadol < opioids
(morphine, oxycodone, hydromorphone).
- Requesting a lesser dose of the same medication IF
ORDERED.
- Requesting a less intrusive route of administration
if both routes are prescribed by the provider (PO <
IV).
Abnormal Lab Results
09/14/24 09/14/24 09/14/24
10:20 10:50 11:46
WBC 20.2 H 10^3/uL
(4.8-10.8)
RBC 6.11 H 10^6/uL
(4.70-6.10)
Abs Immat Gran (auto) 0.1 H 10^3/uL
(0-0.05)
Absolute Neuts (auto) 17.9 H 10^3/uL
(1.4-6.5)
Absolute Lymphs (auto) 1.0 L 10^3/uL
(1.2-3.4)
Absolute Monos (auto) 1.2 H 10^3/uL
(0.1-0.6)
Neutrophils % 88.6 H %
(42.2-75.2)
Lymphocytes % 4.9 L %
(20.5-51.1)
PT 14.7 H Sec
(11.4-14.6)
APTT 35.7 H Sec
(23.4-35.0)
BUN 23 H mg/dl
(9-20)
Glucose 212 H mg/dl
(70-99)
Lactic Acid 2.4 H mmol/L
(0.7-2.0)
Alkaline Phosphatase 162 H U/L
(38-126)
Total Protein 8.7 H g/dl
(6.3-8.2)
09/14/24 10:20
09/14/24 10:50
Vital Signs
Initial and Last Documented VS:
Initial Vital Signs
Temp Pulse Resp BP Pulse Ox
36.3 C 97 20 123/89 97
09/14/24 09:09 09/14/24 09:09 09/14/24 09:09 09/14/24 09:09 09/14/24 09:09
Last Documented Vital Signs
Temp Pulse Resp BP Pulse Ox
36.3 C 95 20 107/83 94
09/14/24 09:09 09/14/24 12:15 09/14/24 14:00 09/14/24 12:00 09/14/24 12:15
MDM/Problems Addressed
Differential Diagnosis Includes:
sbo, hernia
MDM/Problems Addressed:
79 yo M remote liver txp on meds, had colectomy secondary to chronic diarrhea and ischemic colitis; requiring diverting ileostomy 09/2023 dr regan
had SBO in april related to known parastomal hernia; treated with NGT decompression; saw mynor as outpatient consult in case he ended up requiring hernia surgery
woke up with pain RLQ, distention, limited output in ostomy and vomiting
has wbc 20 with left shift; lactic normal
ct shows SBO with transition pt in RLQ adjacent to hernia which contains nonobstructed loop of bowel; mild mesenteric edema favoring high grade obstruction;
placed NGT and ordered iv abx
d/w dr. rodgers from surgery who will see the patient
admit to hospitaist
*Critical Care Note
Total Time (30-74mins, 75-104mins- exclusive of procedures): Not Applicable
ED Attending Note
-
Portions of this chart may have been created with voice recognition software.� Occasional wrong word or��sound alike� substitutions may have occurred due to the inherent limitations of voice recognition software.
Discharge Plan
Departure
Patient Disposition: Admit
Date of Disposition: 09/14/24
Time of Disposition: 13:14
Admit to: Med/Surg
Presentation/result/management discussed w/ accepting MD/DO: Hospitalist
Condition: Fair
Covid-19: Not Applicable
Discharge Problem:
SBO (small bowel obstruction), Acute lactic acidosis
Interventions
Interventions:
*Risk Screen - Suicide Last Done: 09/14/24 11:03
*General Assessment Last Done: 09/14/24 09:09
*Neglect/Abuse Screening Last Done: 09/14/24 09:09
ED- Fall Risk Assessment Last Done: 09/14/24 11:03
*ED COVID-19 Vaccine History Last Done: 09/14/24 09:09
GR-Fpnwoi-Cgaiddkzpo Assessment Last Done: 09/14/24 11:03
ED-Male Genitourinary Assessment Last Done: 09/14/24 11:03
[2024-09-14] MEDS: DILAUDID 0.5 MG IV ×3 (10:15→21:41)
[2024-09-14] MEDS: ZOFRAN 4 MG IV ×2 (10:15→11:48)
[2024-09-14] MEDS: OMNIPAQUE 50 ML PO (10:18)
[2024-09-14 10:27] LABS: % Basophils 0.2 % (0-2); % Immature Granulocytes 0.4 % (0-0.5); % Lymphocytes 4.9 % (20.5-51.1); % Monocytes 5.9 % (1.7-9.3); % Neutrophils 88.6 % (42.2-75.2); Absolute Basophils 0.1 10^3/uL (0-0.2); Absolute Immature Granulocytes 0.1 10^3/uL (0-0.05); Absolute Monocytes 1.2 10^3/uL (0.1-0.6); Absolute Neutrophils 17.9 10^3/uL (1.4-6.5); Hematocrit 50.6 % (39.0-52.0); Hemoglobin 17.7 g/dL (13.0-18.0); Mean Corpuscular Volume 82.8 fL (80.0-94.0); Mean Platelet Volume 9.9 fL (7.4-10.4); Nucleated Red Blood Cells % 0 % (-); Platelet Count 229 10^3/uL (130-400); Red Blood Cell Count 6.11 10^6/uL (4.70-6.10); Red Cell Dist. Width 13.8 % (11.5-14.5); White Blood Cell Count 20.2 10^3/uL (4.8-10.8)
[2024-09-14 11:15] LABS: ALT (SGPT) 50 U/L (0-50); AST (SGOT) 47 U/L (17-59); Albumin 4.9 g/dl (3.5-5.0); Alkaline Phosphatase 162 U/L (38-126); Blood Urea Nitrogen 23 mg/dl (9-20); Carbon Dioxide 24 mmol/L (22-30); Chloride 103 mmol/L (98-107); Estimated Creatinine Clearance 61 ml/min; Glucose 212 mg/dl (70-99); Lipase 57 U/L (23-300); Potassium 4.5 mmol/L (3.5-5.1); Sodium 140 mmol/L (135-145); Total Bilirubin 0.7 mg/dl (0.2-1.3); Total Protein 8.7 g/dl (6.3-8.2); eGFR > 60.00
[2024-09-14 11:21] LABS: PT 14.7 Sec (11.4-14.6)
[2024-09-14 11:22] LABS: APTT 35.7 Sec (23.4-35.0)
[2024-09-14 11:45] VITALS: BP 108/74
[2024-09-14 12:00] VITALS: BP 107/83
[2024-09-14 12:11] LABS: Lactic Acid 2.4 mmol/L (0.7-2.0)
--- NOTE | 2024-09-14 13:34 | HPS.HSE ---
Family Physician
-
Family Physician: Eric Tirado MD
Chief Complaint
-
abdominal pain
History of Present Illness
79-year-old male past medical history of paroxysmal atrial fibrillation, hyperlipidemia, ischemic colitis status post permanent diverting ileostomy in 2023, parastomal hernia, prior SBO, alpha-1 antitrypsin deficiency, cirrhosis status post liver
transplant, BPH, renal lesions, presenting with abdominal pain in the right lower quadrant since last night, nausea and vomiting once morning and bloating similar to prior episode of small bowel obstruction. He had chills but no vomiting. He last
emptied his ostomy this morning although it is diminished amount of watery stool. He last emptied the bag the night before as well. Denies any blood in the stool.
He developed a slight cough today. Denies shortness of breath. Denies chest pain.
Denies smoking or alcohol use.
Medical History
Past Medical History
Past Medical History: Reports Other (paroxysmal atrial fibrillation, hyperlipidemia, ischemic colitis status post permanent diverting ileostomy in 2023, parastomal hernia, prior SBO, alpha-1 antitrypsin deficiency, cirrhosis status post liver
transplant, BPH, renal lesions, )
Past Surgical History: Reports Other ( Orthopedic, Tonsilectomy, diverting loop ileostomy in September 2023)
Social History
Tobacco: Non-smoker
Alcohol: None
Drug: None
Family History
Family History: Not pertinent
Allergies / Home Medications
Allergies reflects when Allergies were last updated in [employer].
Home Medications with original date entered in [employer]
Allergy/Medication List:
Allergies
Allergy/AdvReac Type Severity Reaction Status Date / Time
erythromycin base Allergy Unknown Verified 05/12/24 15:13
pollen extracts Allergy Unknown Verified 05/12/24 15:13
Home Medications
acetaminophen 325 mg tablet (Tylenol) 650 mg PO Q6HPRN PRN lower back pain 09/13/23
cetirizine 10 mg capsule 10 mg PO DAILY Allergies 09/13/23
cholecalciferol (vitamin D3) 25 mcg (1,000 unit) capsule 25 mcg PO DAILY Supplement 09/13/23
dutasteride 0.5 mg-tamsulosin ER 0.4 mg capsule ext.release 24hr mphas 1 cap PO DAILY Urinary Issue 09/13/23
tacrolimus 1 mg capsule, immediate-release 1 mg PO DAILY Liver Issues 09/13/23
therapeutic multivitamin 1 tab PO DAILY Supplement 09/13/23
atorvastatin 40 mg tablet 40 mg PO DAILY High Cholesterol 05/12/24
dabigatran etexilate 150 mg capsule (Pradaxa) 150 mg PO BID #60 caps 05/19/24
metoprolol succinate 25 mg tablet,extended release 24 hr 25 mg PO QPM #30 tabs 05/19/24
Review of Systems
-
History Source: Patient
A 12 point ROS was completed and negative except as noted: Yes
Constitutional: Reports No Symptoms
EENT: Reports No Symptoms
Respiratory: Reports No Symptoms
Cardiac: Reports No Symptoms
Abdomen/GI: Reports See HPI
: Reports No Symptoms
Musculoskeletal: Reports No Symptoms
Skin: Reports No Symptoms
Neurological: Reports No Symptoms
Endocrine: Reports No Symptoms
Hematologic/Lymphatic: Reports No Symptoms
Psych: Reports No Symptoms
Physical Exam
Vital Signs
Vital Signs
Temp Pulse Resp BP Pulse Ox
97.4 F 95 28 107/83 94
09/14/24 09:09 09/14/24 12:15 09/14/24 12:15 09/14/24 12:00 09/14/24 12:15
Physical Exam
General: Well Developed, Well Nourished and No Apparent Distress
HEENT: NormoCephalic, Moist mucous membranes and Atraumatic
Respiratory: Clear
Cardiac: S1/S2 and Regular Rhythm; No Murmur or Rub
GI: Soft, Non Distended, Normal Bowel Sounds and Tender (tender RLQ ); No Organomegaly
Rectal: Deferred by Provider
Musculoskeletal: No Clubbing, No Cyanosis and No Edema
Skin: No Rash
Neuro: Nonfocal/grossly intact
Laboratory Results
-
09/14/24 10:20
09/14/24 10:50
Laboratory Results
PT 14.7 Sec (11.4-14.6) H 09/14/24 10:20
INR 1.10 09/14/24 10:20
APTT 35.7 Sec (23.4-35.0) H 09/14/24 10:20
Lactic Acid 2.4 mmol/L (0.7-2.0) H 09/14/24 11:46
Total Bilirubin 0.7 mg/dl (0.2-1.3) 09/14/24 10:50
AST 47 U/L (17-59) 09/14/24 10:50
ALT 50 U/L (0-50) 09/14/24 10:50
Alkaline Phosphatase 162 U/L (38-126) H 09/14/24 10:50
Lipase 57 U/L (23-300) 09/14/24 10:50
Data Reviewed
-
Lab Data: Labs Reviewed by me
Old Records: Reviewed
Impression/Plan
-
IMPRESSION:
PLAN:
# High-grade small bowel obstruction in the right lower quadrant
# History of possible ischemic colitis status post diverting loop ileostomy in September 2023
# History of parastomal hernia obstruction status post reduction
-Leukocytosis on lab, lactic of 2.4
-CT abdomen partial small bowel obstruction transition point within the right lower quadrant adjacent to parastomal hernia, large parastomal hernia contains nonobstructed small bowel, mild mesenteric edema associate with dilated loops of small bowel
favored to represent high-grade obstruction
-Blood cultures sent
-N.p.o. including oral medications except tacrolimus
-IV fluids
-Zosyn
-Zofran
-Dilaudid
-NG tube to be placed
-General Surgery consulted
Paroxysmal atrial fibrillation
-Hold Pradaxa
-Hold metoprolol
Hyperlipidemia
-Hold statin
Alpha-1 antitrypsin deficiency
Cirrhosis status post liver transfer 27 years ago
-Continue tacrolimus
BPH
History of renal lesions likely cysts
DNR/DNI
DVT prophylaxis�SCDs
N.p.o.
[2024-09-14] MEDS: ZOSYN 50 IV ×2 (13:49→19:45)
[2024-09-14] MEDS: NSS 1000 IV ×2 (13:49→17:22)
--- NOTE | 2024-09-14 14:01 | CON.GS ---
Addendum entered and electronically signed by Odin Gonzalez MD 09/14/24 14:51:
I saw and examined the patient independently.
The Non Licensed Operator's note was reviewed and I agree with the note, assessment and plan except where noted below.
Comment: This is a 79-year-old male with complex surgical history with known diverting loop ileostomy and parastomal hernia here with recurrent obstruction at the level of the hernia. I reviewed his CT scan images personally while the transition
point at the hernia neck there does not appear to be any bowel thread within the hernia sac. Indeed, on exam the hernia is soft and somewhat reducible although this is limited given his body habitus.
For now we will pursue nonoperative management.
N.p.o., IV fluids, please place an NG tube to low intermittent wall suction.
Had a lengthy discussion with and patient about surgical management. The patient has seen Dr. Delgado as an outpatient. While a mesh repair would be the best option for him, given his obesity he is at high risk for recurrence. Resiting the
stoma is also another option but again given his underlying risk factors it is likely he would develop a recurrence.
The patient will be followed by the colorectal service starting Sunday.
Will discuss with them if there is any role in reversal, and if not perhaps reciting to an end ileostomy might decrease his risk of hernia recurrence.
All questions answered, patient and agreeable to plan of care above.
Original Note:
Medical History
-
Chief Complaint: Abdominal pain
History of Present Illness:
Mr Kelly is a 79-year-old male with PMH liver transplant approx 26 years ago and severe proctocolitis with recurrent bleeding which is continuing followed with GI as an outpatient with endoscopic biopsies consistent with rectosigmoid stricture and
biopsy with suspected ischemic colitis now s/p diverting loop ileostomy in September [address] Alexander for management with admission in late April of this year for SBO secondary to a parastomal hernia which resolved with nonoperative measures. He
presents with nausea/vomiting and abdominal distention and pain since last night. He notes that symptoms have been similar to prior obstruction in the past. He last emptied his ostomy this morning although and noted a diminished amount of watery
stool; there is minimal stool in the appliance currently. Stoma pink/viable and he notes there have been no changes to color or size. There is a parastomal hernia present that is soft and able to be reduced at bedside with patient lying flat. There
is pain to the RLQ and distention on exam.
Past Medical History
Past Medical History: HTN and Other (Alpha-1 Antitrypsin Deficiency, Cirrhosis, Ischemic Colitis, Chronic Diarrhea, BPH, Obesity)
Past Surgical History: Bowel Resection (Diverting Loop Ileostomy (09/26/23)), Orthopedic (Cervical Fusion, Lumbar Fusion, Right Rotator Cuff Repair, Left TKA, Right ABE), Tonsilectomy and Other (Liver Transplant (26 years ago - followed at [facility]))
Social History
Tobacco: Non-Smoker
Alcohol: None
Family History
Family History: Reviewed & Not Pertinent
Allergies / Home Medications
Allergy/AdvReac Type Severity Reaction Status Date / Time
erythromycin base Allergy Unknown Verified 05/12/24 15:13
pollen extracts Allergy Unknown Verified 05/12/24 15:13
�Medication �Instructions �Recorded �Confirmed �Type
cetirizine 10 mg capsule 10 mg PO DAILY Allergies 09/13/23 09/14/24 History
cholecalciferol (vitamin D3) 25 25 mcg PO DAILY Supplement 09/13/23 09/14/24 History
mcg (1,000 unit) capsule
dutasteride 0.5 mg-tamsulosin ER 1 cap PO DAILY Urinary Issue 09/13/23 09/14/24 History
0.4 mg capsule ext.release 24hr
mphas
tacrolimus 1 mg capsule, 1 mg PO DAILY Liver Issues 09/13/23 09/14/24 History
immediate-release
therapeutic multivitamin 1 tab PO DAILY Supplement 09/13/23 09/14/24 History
atorvastatin 40 mg tablet 40 mg PO DAILY High Cholesterol 05/12/24 09/14/24 History
dabigatran etexilate 150 mg 150 mg PO BID #60 caps 05/19/24 09/14/24 Rx
capsule (Pradaxa)
metoprolol succinate 25 mg 25 mg PO QPM #30 tabs 05/19/24 09/14/24 Rx
tablet,extended release 24 hr
loperamide 2 mg capsule 2 mg PO HS 09/14/24 09/14/24 History
Review of Systems
-
History Source: Patient and Family
All other systems: Negative unless noted
A 10 point review of systems was completed, and was negative except as per HPI.
Physical Exam
Vital Signs
Temp Pulse Resp BP Pulse Ox
97.4 F 95 28 107/83 94
09/14/24 09:09 09/14/24 12:15 09/14/24 12:15 09/14/24 12:00 09/14/24 12:15
09/13/24 09/14/24 09/15/24
06:59 06:59 06:59
Actual Weight 95.254 kg
Body Mass Index (BMI) 31.9
Lab Results
09/14/24 10:20
09/14/24 10:50
WBC 20.2 10^3/uL (4.8-10.8) H 09/14/24 10:20
Hgb 17.7 g/dL (13.0-18.0) 09/14/24 10:20
Hct 50.6 % (39.0-52.0) 09/14/24 10:20
Plt Count 229 10^3/uL (130-400) 09/14/24 10:20
Abs Immat Gran (auto) 0.1 10^3/uL (0-0.05) H 09/14/24 10:20
Neutrophils % 88.6 % (42.2-75.2) H 09/14/24 10:20
Physical Exam
General: Well Developed and Well Nourished
HEENT: Moist Mucous Membranes
Respiratory: Non Labored Respirations
GI: Soft, Tender (RLQ), Distended, Obese and Other (stoma pink/viable with some small amounts of loose stool/flatus in appliance. parastomal hernia present which is soft/reducible)
Genito-urinary: Other
Skin: Warm and Dry
Neuro: Awake, Alert and AO x 3
Psych: Calm
Data Reviewed
-
CT Scan: Image Personally Visualized and interpreted, Report Reviewed by me, Discussed with Physician, Discussed with Patient and Discussed with Family
Labs: Labs Reviewed by me, Discussed with Physician, Discussed with Patient and Discussed with Family
Old Records: Reviewed
Assessment / Plan
-
Mr Kelly is a 79-year-old male with PMH liver transplant approx 26 years ago and severe proctocolitis with recurrent bleeding which is continuing followed with GI as an outpatient with endoscopic evaluation consistent with rectosigmoid stricture
and biopsy with suspected ischemic colitis now s/p diverting loop ileostomy in September [address] Alexander for management with admission in late April of this year for SBO secondary to a parastomal hernia which resolved with nonoperative measures. He
presents with nausea/vomiting, abdominal distention and pain since last night.
After his last hospitalization for SBO, he did follow with Dr. Delgado as an outpatient on July 16 to discuss hernia repair with the decision made to observe expectantly for the time being given high incidence of hernia recurrence with surgical
repair. Follow up was recommended with Dr Alexander to determine if his ileostomy would be able to be reversed with a joint surgery for hernia repair at that time. Repair of the hernia without reversal of the ileostomy would likely require revision of
his current type of ostomy to an end ostomy with mucous fistula recited to a new location and then closing residual abdominal wall hernia left at the current ostomy site. As he presents with recurrent obstruction, will need to revisit these
discussions after resolution of this acute episode.
CT imaging reviewed with small bowel obstruction noted with a transition point in the right lower quadrant adjacent to the parastomal hernia. The large parastomal hernia contains non-obstructed small bowel. The hernia is soft and able to be reduced.
There is no evidence of bowel threat or compromise on exam or imaging.
There is noted leukocytosis with elevated lactic acid. AFVSS.
Plan:
Fortunately, the parastomal hernia is soft and able to be reduced at bedside, no emergent surgery planned at this time.
Keep NPO and place NGT for decompression
IVF as per primary team
Will transition patient to CRS in Am
[2024-09-14 16:35] VITALS: BP 146/96
[2024-09-14 23:14] VITALS: BP 139/85
[2024-09-14 23:34] VITALS: BMI 31.9
[2024-09-15] MEDS: ZOSYN 50 IV ×4 (01:19→20:18)
[2024-09-15] MEDS: NSS 1000 IV ×2 (03:48→13:02)
[2024-09-15 07:10] VITALS: BP 117/82
--- NOTE | 2024-09-15 07:23 | W.PN.HOSP.TC ---
Addendum entered and electronically signed by Chi Darby MD 09/15/24 12:53:
I just spoke to Dr. Michelle who is the liver transplant physician on-call at [facility] liver transplant center, and he recommended checking 24 hour Tacrolimus (Prograf) Level tomorrow morning before the Prograf is given, and he also said the Prograf can be
given with a little bit of water tomorrow morning, or alternatively, can poke Prograf capulse with a needle and hold it under the tongue for 2 to 3 minutes.
Addendum entered and electronically signed by Chi Darby MD 09/15/24 12:36:
I called [facility] at [phone], and the sales representative trainee/coordinator said Dr. Kira Austin (transplant missile technician) will call me back today regarding patient's Tacrolimus issue.
Original Note:
Today's Communication/Plan
-
NPO, IV fluids, NG Tube
Patient still getting PO Tacrolimus -- checking with surgery teams, nurse and pharmacist to make sure okay
Assessment / Plan
Assessment / Plan
Physical Exam
General: Not in acute distress
HEENT: Normocephalic
Respiratory: Clear to Auscultation Bilaterally
Cardiac: S1/S2 and Regular Rhythm
GI: Soft, Non Distended, Normal Bowel Sounds and Tender (tender RLQ)
Musculoskeletal: No Cyanosis and No Edema
Skin: Warm. Dry.
Neuro: Nonfocal/grossly intact
Assessment/Plan
# High-grade small bowel obstruction in the right lower quadrant
# History of possible ischemic colitis status post diverting loop ileostomy in September 2023
# History of parastomal hernia obstruction status post reduction
-Leukocytosis on lab, initial lactic acid of 2.4
-CT abdomen showed per radiologist partial small bowel obstruction transition point within the right lower quadrant adjacent to parastomal hernia, large parastomal hernia contains nonobstructed small bowel, mild mesenteric edema associate with
dilated loops of small bowel favored to represent high-grade obstruction
-Blood cultures pending
-N.p.o. including oral medications except tacrolimus, NG tube to low intermittent wall suction
-IV fluids
-Zosyn
-Zofran
-Minimize pain medication for accurate abdominal exams; but continue low-dose Dilaudid, okay to add Toradol
-Surgery consulted at the time of admission, appreciate their evaluation and recommendations (patient has seen Dr. Delgado as an outpatient)
Paroxysmal atrial fibrillation
-Hold Pradaxa
-Hold metoprolol
Hyperlipidemia
-Hold statin
Alpha-1 antitrypsin deficiency
Cirrhosis status post liver transfer 27 years ago
-Continue tacrolimus
BPH
History of renal lesions likely cysts
DNR/DNI
DVT prophylaxis�SCDs. Lovenox.
N.p.o.
Anticipated Discharge: 24 - 48 hours
Subjective/Interval History
-
Date of Service: September 15, 2024
Patient was seen and examined. He reports on and off lower abdominal cramping, he has not had any output from him stoma since yesterday morning. He denied any other symptoms or complaints.
Objective Data
-
Labs:
Laboratory Results
09/15/24
07:09
WBC Pending
Hgb Pending
Hct Pending
Plt Count Pending
Sodium Pending
Potassium Pending
Chloride Pending
Carbon Dioxide Pending
BUN Pending
Creatinine Pending
Glucose Pending
Calcium Pending
Total Bilirubin Pending
AST Pending
ALT Pending
Alkaline Phosphatase Pending
Vital Signs:
Vital Signs
Temp Pulse Resp BP Pulse Ox
97.8 F 77 18 139/85 93
09/14/24 23:14 09/14/24 23:14 09/14/24 23:14 09/14/24 23:14 09/15/24 00:17
I&O
09/14/24 09/15/24 09/16/24
06:59 06:59 06:59
Intake Total 1390 / 1390
Output Total 1075 / 1075
Balance 315 / 315
[2024-09-15] MEDS: DILAUDID 0.5 MG IV ×2 (07:53→13:07)
[2024-09-15] MEDS: PROGRAF 1 MG PO (07:53)
[2024-09-15 09:33] LABS: % Basophils 0.2 % (0-2); % Eosinophils 0.5 % (0-6); % Immature Granulocytes 0.4 % (0-0.5); % Lymphocytes 20.3 % (20.5-51.1); % Monocytes 9.5 % (1.7-9.3); % Neutrophils 69.1 % (42.2-75.2); Absolute Eosinophils 0.1 10^3/uL (0-0.7); Absolute Immature Granulocytes 0.1 10^3/uL (0-0.05); Absolute Monocytes 1.4 10^3/uL (0.1-0.6); Absolute Neutrophils 10.3 10^3/uL (1.4-6.5); Hematocrit 46.6 % (39.0-52.0); Hemoglobin 15.5 g/dL (13.0-18.0); Mean Corp Hgb Conc. 33.3 g/dL (33.0-37.0); Mean Corpuscular Hgb 29.2 pg (27.0-31.0); Mean Corpuscular Volume 87.9 fL (80.0-94.0); Mean Platelet Volume 9.8 fL (7.4-10.4); Nucleated Red Blood Cells % 0 % (-); Platelet Count 206 10^3/uL (130-400); Red Cell Dist. Width 14.3 % (11.5-14.5); White Blood Cell Count 14.9 10^3/uL (4.8-10.8)
[2024-09-15 10:15] LABS: ALT (SGPT) 35 U/L (0-50); AST (SGOT) 37 U/L (17-59); Albumin 3.9 g/dl (3.5-5.0); Alkaline Phosphatase 105 U/L (38-126); Blood Urea Nitrogen 28 mg/dl (9-20); Calcium 8.7 mg/dl (8.4-10.2); Carbon Dioxide 24 mmol/L (22-30); Chloride 104 mmol/L (98-107); Estimated Creatinine Clearance 61 ml/min; Glucose 91 mg/dl (70-99); Potassium 4.2 mmol/L (3.5-5.1); Sodium 142 mmol/L (135-145); Total Bilirubin 1.2 mg/dl (0.2-1.3); Total Protein 7.1 g/dl (6.3-8.2); eGFR > 60.00
--- NOTE | 2024-09-15 11:00 | W.PN.CRS1 ---
Today's Communication / Plan
-
continue ngt
Assessment/Plan
-
79 yo male with a known diverting loop ileostomy (Dr. Alexander) and parastomal hernia, with bloating/nausea/vomiting, found to have a small bowel obstruction with transition point in the right lower quadrant adjacent to the parastomal hernia, NGT placed
AFVSS, NGT�350ml output
WBC 14. from 20.2
SBO
� No acute surgical intervention; continue NGT
� Follow-up imaging per general surgery
� Continue n.p.o. with NGT and IVF; no p.o. meds, okay for ice chips
� Minimize pain medication for accurate abdominal exams; continue low-dose Dilaudid, okay to add Toradol
� Encourage IS, ambulate at least twice daily; okay to clamp NGT for ambulation
� IV Zosyn per hospitalist
� Recommend DVT PPx
� Appreciate hospitalist/general surgery
Subjective Data
Subjective Data
Date of Service: September 15, 2024
Patient states he has not had any output from him stoma since yesterday AM. He denies flatus. He denies nausea or vomiting. He has lower abdominal cramping which comes and goes.
Objective Data
-
Vital Signs
Temp Pulse Resp BP Pulse Ox
97.8 F 78 16 117/82 96
09/15/24 07:10 09/15/24 07:10 09/15/24 07:10 09/15/24 07:10 09/15/24 09:38
Intake & Output
09/14/24 09/15/24 09/16/24
06:59 06:59 06:59
Intake Total 1390 / 1390
Output Total 1075 / 1075 450 / 450
Balance 315 / 315 -450 / -450
Intake:
IV fluids (Total) 1200 / 1200
IV piggybacks 100 / 100
Amount instilled into GI Tube (
Total)
[place] Sump /
Output:
Gastrointestinal tube output ( 350 / 350 450 / 450
Total)
[place] Sump 350 / 350 450 / 450
Urine, Voided 725 / 725
Lab Results
09/15/24 07:09
09/15/24 07:09
Physical Exam
-
General: No Acute Distress and AOx3
Abdomen: Soft, Non Distended and Non Tender
Skin: Warm and Dry
--- NOTE | 2024-09-15 12:44 | CM ---
Patient seen at bedside.
NGT in place-SBO
IA completed.
Lives at home with - 2 story, 1 step to enter, flight to second floor
PLOF: Ambulates with cane
DME: Ostomy supplies, cane
has had [facility] in past, denies rehab
denies insecurities
PCP: Sawyer Tirado
Pharmacy: [facility]
PLAN: home, will follow for needs
--- NOTE | 2024-09-15 12:45 | PTCARENOTE ---
pt npo, on ng tube. Ok for po tacrolimus for now.
[2024-09-15 13:07] LABS: Lactic Acid 1.7 mmol/L (0.7-2.0)
--- NOTE | 2024-09-15 13:14 | PTCARENOTE ---
As per Wang Smith request ostomy appliances kept in pt room.
--- NOTE | 2024-09-15 14:20 | W.PN.GS2 ---
Today's Communication / Plan
-
NGT/NPO
Assessment / Plan
-
79-year-old male s/p liver transplant remotely with PMH of severe proctocolitis s/p diverting loop ileostomy in September 2023 presenting with SBO with transition point on CT at the hernia neck there does not appear to be any bowel thread within the
hernia sac. Hernia is soft and somewhat reducible although this is limited given his body habitus.
AFVSS
Labs stable, leukocytosis improving, lactic acid normalized
NGT with bilious outputs but relief in nausea and pain decreased
--NPO/NGT
--Analgesics/antiemetics prn
--Following with Dr. Delgado as an outpatient to discuss hernia repair. Ideally, this would be done after this acute episode on a planned outpatient basis. Colorectal surgery following with us as well.
Subjective Data
-
Date of Service: September 15, 2024
Patient seen and examined at bedside. Some cramping pain just below his stoma. Denies nausea.
Objective Data
-
Intake and Output
09/14/24 09/15/24 09/16/24
06:59 06:59 06:59
Intake Total 1390 / 1390
Output Total 1075 / 1075 450 / 450
Balance 315 / 315 -450 / -450
Intake:
IV fluids (Total) 1200 / 1200
IV piggybacks 100 / 100
Amount instilled into GI Tube ( 90 / 90
Total)
[place] Sump 90 / 90
Output:
Gastrointestinal tube output ( 350 / 350 450 / 450
Total)
[place] Sump 350 / 350 450 / 450
Urine, Voided 725 / 725
Vital Signs
Temp Pulse Resp BP Pulse Ox
97.8 F 78 16 117/82 96
09/15/24 07:10 09/15/24 07:10 09/15/24 07:10 09/15/24 07:10 09/15/24 09:38
Lab Results
09/15/24 07:09
09/15/24 07:09
Calcium 8.7 mg/dl (8.4-10.2) 09/15/24 07:09
Total Bilirubin 1.2 mg/dl (0.2-1.3) 09/15/24 07:09
AST 37 U/L (17-59) 09/15/24 07:09
ALT 35 U/L (0-50) 09/15/24 07:09
Alkaline Phosphatase 105 U/L (38-126) 09/15/24 07:09
Total Protein 7.1 g/dl (6.3-8.2) 09/15/24 07:09
Albumin 3.9 g/dl (3.5-5.0) 09/15/24 07:09
Physical Exam
-
NAD
ABD soft, mild distention, stoma pink/parastomal hernia present. Some stool/flatus in appliance
[2024-09-15 15:10] VITALS: BP 126/86
[2024-09-15 16:58] LABS: Lactic Acid 2.3 mmol/L (0.7-2.0)
[2024-09-15] MEDS: LOVENOX 40 MG SC (17:18)
[2024-09-15 23:06] VITALS: BP 127/90
[2024-09-16] MEDS: NSS 1000 IV (00:25)
[2024-09-16] MEDS: ZOSYN 50 IV ×4 (02:13→19:59)
[2024-09-16 08:02] VITALS: BP 125/82
[2024-09-16 08:35] LABS: % Basophils 0.3 % (0-2); % Eosinophils 1.1 % (0-6); % Immature Granulocytes 0.5 % (0-0.5); % Lymphocytes 22.7 % (20.5-51.1); % Monocytes 9.6 % (1.7-9.3); % Neutrophils 65.8 % (42.2-75.2); Absolute Eosinophils 0.1 10^3/uL (0-0.7); Absolute Immature Granulocytes 0.1 10^3/uL (0-0.05); Absolute Lymphocytes 2.5 10^3/uL (1.2-3.4); Absolute Monocytes 1.1 10^3/uL (0.1-0.6); Absolute Neutrophils 7.3 10^3/uL (1.4-6.5); Hematocrit 44.3 % (39.0-52.0); Hemoglobin 14.5 g/dL (13.0-18.0); Mean Corp Hgb Conc. 32.7 g/dL (33.0-37.0); Mean Corpuscular Hgb 28.6 pg (27.0-31.0); Mean Corpuscular Volume 87.4 fL (80.0-94.0); Mean Platelet Volume 9.4 fL (7.4-10.4); Nucleated Red Blood Cells % 0 % (-); Platelet Count 168 10^3/uL (130-400); Red Blood Cell Count 5.07 10^6/uL (4.70-6.10); White Blood Cell Count 11.1 10^3/uL (4.8-10.8)
[2024-09-16 09:08] LABS: Blood Urea Nitrogen 23 mg/dl (9-20); Calcium 8.7 mg/dl (8.4-10.2); Carbon Dioxide 31 mmol/L (22-30); Chloride 103 mmol/L (98-107); Estimated Creatinine Clearance 67 ml/min; Glucose 88 mg/dl (70-99); Potassium 3.4 mmol/L (3.5-5.1); Sodium 142 mmol/L (135-145); eGFR > 60.00
--- NOTE | 2024-09-16 09:12 | W.PN.CRS1 ---
Today's Communication / Plan
-
ngt per general
no plans for surgery at this time
Assessment/Plan
-
79 yo male with a known diverting loop ileostomy (Dr. Alexander) and parastomal hernia, with bloating/nausea/vomiting, found to have a small bowel obstruction with transition point in the right lower quadrant adjacent to the parastomal hernia, NGT placed
AFVSS, NGT�2550ml output
WBC 11.1 from 14.9
SBO
� No acute surgical intervention, parastomal hernia repair per general
� Continue n.p.o. with NGT and IVF; no p.o. meds, okay for ice chips. Okay for removal from our standpoint, will defer to general surgery.
� Minimize pain medication for accurate abdominal exams; continue low-dose Dilaudid, okay to add Toradol
� Encourage IS, ambulate at least twice daily; okay to clamp NGT for ambulation
� IV Zosyn per hospitalist
� Recommend DVT PPx
� Appreciate hospitalist/general surgery
Subjective Data
Subjective Data
Date of Service: September 16, 2024
Patient states he has no pain. His ostomy opened up yesterday. He denies nausea or vomiting.
Objective Data
-
Vital Signs
Temp Pulse Resp BP Pulse Ox
98.4 F 73 16 125/82 92
09/16/24 08:02 09/16/24 08:02 09/16/24 08:02 09/16/24 08:02 09/16/24 08:02
Intake & Output
09/15/24 09/16/24 09/17/24
06:59 06:59 06:59
Intake Total 1390 / 1390 2950 / 2950
Output Total 1075 / 1075 4850 / 4850
Balance 315 / 315 -1900 / -1900
Intake:
IV fluids (Total) 1200 / 1200 2700 / 2700
IV piggybacks 100 / 100 100 / 100
Amount instilled into GI Tube ( 90 / 90 150 / 150
Total)
[place] Sump 90 / 90 150 / 150
Output:
Liquid stool amount 1250 / 1250
Ileostomy 1250 / 1250
Gastrointestinal tube output ( 350 / 350 2550 / 2550
Total)
[place] Sump 350 / 350 2550 / 2550
Urine, Voided 725 / 725 1050 / 1050
Other:
Number of unmeasured liquid
stools
Ileostomy 2
Lab Results
09/16/24 07:49
09/16/24 07:49
Physical Exam
-
General: No Acute Distress and AOx3
Abdomen: Soft, Non Distended, Non Tender and Other (ostomy warm and pink with function)
Skin: Warm and Dry
--- NOTE | 2024-09-16 09:38 | W.PN.GS2 ---
Today's Communication / Plan
-
-- Clamp trial, if no symptoms and continued ostomy output can DC this afternoon
-- Surgical care primarily via CRS
Assessment / Plan
-
79-year-old male s/p liver transplant remotely with PMH of severe proctocolitis s/p diverting loop ileostomy in September 2023 presenting with SBO with transition point on CT at the hernia neck there does not appear to be any bowel thread within the
hernia sac. Hernia is soft and somewhat reducible although this is limited given his body habitus.
AFVSS
Labs stable, leukocytosis improving, lactic acid normalized
NGT with gastric outputs, high volume likely due to ice chips and water
No need for acute intervention - obstruction resolving and no signs of strangulation. No plans for surgical intervention from general surgery standpoint at this time. Repair of parastomal hernia with a continued loop and at his weight is likely to
be futile. Needs plan from CRS standpoint either ileostomy reversal, TAC with end ileostomy, or TAC with ileorectal anastomosis. Any repair of his parastomal hernia would be performed at the time of his CRS operation.
-- Clamp trial, if no symptoms and continued ostomy output can DC this afternoon
-- Surgical care primarily via CRS
Subjective Data
-
Date of Service: September 16, 2024
Approach improved and resolved crampy lower abdominal discomfort. No nausea or vomiting. Producing liquid stool and some flatus via ostomy. No fevers. No nausea or vomiting. Minimal ambulation.
Objective Data
-
Intake and Output
09/15/24 09/16/24 09/17/24
06:59 06:59 06:59
Intake Total 1390 / 1390 2950 / 2950
Output Total 1075 / 1075 4850 / 4850
Balance 315 / 315 -1900 / -1900
Intake:
IV fluids (Total) 1200 / 1200 2700 / 2700
IV piggybacks 100 / 100 100 / 100
Amount instilled into GI Tube ( 90 / 90 150 / 150
Total)
[place] Sump 90 / 90 150 / 150
Output:
Liquid stool amount 1250 / 1250
Ileostomy 1250 / 1250
Gastrointestinal tube output ( 350 / 350 2550 / 2550
Total)
[place] Sump 350 / 350 2550 / 2550
Urine, Voided 725 / 725 1050 / 1050
Other:
Number of unmeasured liquid
stools
Ileostomy 2
Vital Signs
Temp Pulse Resp BP Pulse Ox
98.4 F 73 16 125/82 92
09/16/24 08:02 09/16/24 08:02 09/16/24 08:02 09/16/24 08:02 09/16/24 08:02
Lab Results
09/16/24 07:49
09/16/24 07:49
Calcium 8.7 mg/dl (8.4-10.2) 09/16/24 07:49
Magnesium 2.0 mg/dl (1.6-2.3) 09/16/24 07:49
Total Bilirubin 1.2 mg/dl (0.2-1.3) 09/15/24 07:09
AST 37 U/L (17-59) 09/15/24 07:09
ALT 35 U/L (0-50) 09/15/24 07:09
Alkaline Phosphatase 105 U/L (38-126) 09/15/24 07:09
Total Protein 7.1 g/dl (6.3-8.2) 09/15/24 07:09
Albumin 3.9 g/dl (3.5-5.0) 09/15/24 07:09
Physical Exam
-
Gen: NAD
Abd: soft, NT, mild distension, obese, non-peritoneal, DLI with minor mucosal congestion, PPV, liquid stool in appliance, hernia soft
[2024-09-16] MEDS: PROGRAF PO (10:19)
[2024-09-16] MEDS: PROGRAF 0.5 MG SL (10:41)
[2024-09-16] MEDS: PROGRAF SL (10:43)
[2024-09-16 15:55] VITALS: BP 130/89
--- NOTE | 2024-09-16 16:41 | W.PN.HOSP.TC ---
Today's Communication/Plan
-
NG tube clamp trial today - if no symptoms and continued ostomy output can DC NG tube this afternoon
Continue holding Pradaxa
Continue Tacrolimus
Continue home beta lydia
Assessment / Plan
Assessment / Plan
Physical Exam
General: Not in acute distress
HEENT: Normocephalic
Respiratory: Clear to Auscultation Bilaterally
Cardiac: S1/S2 and Regular Rhythm
GI: Soft, Non Distended, Non Tender, Normal Bowel Sounds
Musculoskeletal: No Cyanosis and No Edema
Skin: Warm. Dry.
Neuro: Nonfocal/grossly intact
Assessment/Plan
# High-grade small bowel obstruction in the right lower quadrant
# History of possible ischemic colitis status post diverting loop ileostomy in September 2023
# History of parastomal hernia obstruction status post reduction
# Leukocytosis - IMPROVING
-CT abdomen showed per radiologist partial small bowel obstruction transition point within the right lower quadrant adjacent to parastomal hernia, large parastomal hernia contains nonobstructed small bowel, mild mesenteric edema associate with
dilated loops of small bowel favored to represent high-grade obstruction
-Blood cultures with no growth to date
-NG tube clamp trial - if no symptoms and continued ostomy output can DC NG tube this afternoon
-IV fluids
-Zosyn
-Zofran
-Minimize pain medication for accurate abdominal exams; but continue low-dose Dilaudid, okay to add Toradol
-Surgery consulted at the time of admission, appreciate their evaluation and recommendations (patient has seen Dr. Delgado as an outpatient)
Paroxysmal atrial fibrillation
-Continue holding Pradaxa as per my discussion today with Dr. Rain
-Continue metoprolol
Hyperlipidemia
-Continue statin
Alpha-1 antitrypsin deficiency
Cirrhosis status post liver transfer 27 years ago
-Continue tacrolimus
-I spoke to clinical pharmacist who told me Tacrolimus sublingual dose is 50% of the PO dose -- therefore ordered 0.5 mg daily sublingual Tacrolimus for now since absorption may be unreliable
BPH
History of renal lesions likely cysts
DNR/DNI
DVT prophylaxis�SCDs. Lovenox.
N.p.o. except PO medications
Anticipated Discharge: Within 24 hours
Subjective/Interval History
-
Date of Service: September 16, 2024
Patient was seen and examined. He denied any pain, he has been having dark liquid output in his ostomy. He denied any nausea or vomiting.
Objective Data
-
Labs:
Laboratory Results
09/16/24
07:49
WBC 11.1 H
Hgb 14.5
Hct 44.3
Plt Count 168
Sodium 142
Potassium 3.4 L
Chloride 103
Carbon Dioxide 31 H
BUN 23 H
Creatinine 1.0
Glucose 88
Calcium 8.7
Vital Signs:
Vital Signs
Temp Pulse Resp BP Pulse Ox
97.6 F 91 16 130/89 95
09/16/24 15:55 09/16/24 15:55 09/16/24 15:55 09/16/24 15:55 09/16/24 15:55
I&O
09/15/24 09/16/24 09/17/24
06:59 06:59 06:59
Intake Total 1390 / 1390 2950 / 2950 60 / 60
Output Total 1075 / 1075 4850 / 4850 1735 / 1735
Balance 315 / 315 -1900 / -1900 -1675 / -1675
[2024-09-16] MEDS: KCL 40 MEQ PO (17:23)
[2024-09-16] MEDS: TOPROL XL 25 MG PO (17:23)
[2024-09-16] MEDS: LOVENOX 40 MG SC (17:24)
[2024-09-16 23:21] VITALS: BP 128/81
[2024-09-17] MEDS: ZOSYN 50 IV ×3 (01:13→13:07)
--- NOTE | 2024-09-17 04:43 | PTCARENOTE ---
Pt tolerated having NGtube clamp. Large amount of output from ileostomy. No c/o nausea and tolerate ice chips per general surgeon.
[2024-09-17 07:10] VITALS: BP 131/94
[2024-09-17 07:48] LABS: % Basophils 0.4 % (0-2); % Eosinophils 1.2 % (0-6); % Immature Granulocytes 0.3 % (0-0.5); % Lymphocytes 30.2 % (20.5-51.1); % Monocytes 9.1 % (1.7-9.3); % Neutrophils 58.8 % (42.2-75.2); Absolute Basophils 0.1 10^3/uL (0-0.2); Absolute Eosinophils 0.2 10^3/uL (0-0.7); Absolute Lymphocytes 3.9 10^3/uL (1.2-3.4); Absolute Monocytes 1.2 10^3/uL (0.1-0.6); Absolute Neutrophils 7.6 10^3/uL (1.4-6.5); Hematocrit 47.9 % (39.0-52.0); Hemoglobin 16.1 g/dL (13.0-18.0); Mean Corp Hgb Conc. 33.6 g/dL (33.0-37.0); Mean Corpuscular Hgb 29.1 pg (27.0-31.0); Mean Corpuscular Volume 86.5 fL (80.0-94.0); Mean Platelet Volume 9.3 fL (7.4-10.4); Nucleated Red Blood Cells % 0 % (-); Platelet Count 205 10^3/uL (130-400); Red Blood Cell Count 5.54 10^6/uL (4.70-6.10); Red Cell Dist. Width 13.7 % (11.5-14.5); White Blood Cell Count 12.9 10^3/uL (4.8-10.8)
[2024-09-17 07:57] LABS: Lactic Acid 1.4 mmol/L (0.7-2.0)
[2024-09-17 07:59] LABS: Blood Urea Nitrogen 30 mg/dl (9-20); Calcium 9.5 mg/dl (8.4-10.2); Carbon Dioxide 28 mmol/L (22-30); Estimated Creatinine Clearance 56 ml/min; Glucose 92 mg/dl (70-99); Potassium 3.8 mmol/L (3.5-5.1); Sodium 143 mmol/L (135-145); eGFR > 60.00
[2024-09-17] MEDS: LIPITOR 40 MG PO (08:03)
[2024-09-17] MEDS: PROGRAF 0.5 MG SL (08:03)
[2024-09-17 08:04] LABS: Chloride 102 mmol/L (98-107)
--- NOTE | 2024-09-17 10:54 | W.PN.HOSP.TC ---
Today's Communication/Plan
-
Clear Liquids diet, NG tube discontinued
Continue holding Pradaxa for 1 more day
DVT Prophylaxis with Lovenox
Stop Zosyn
Assessment / Plan
Assessment / Plan
Physical Exam
General: Not in acute distress
HEENT: Normocephalic
Respiratory: Clear to Auscultation Bilaterally
Cardiac: S1/S2 and Regular Rhythm
GI: Soft, Non Distended, Non Tender, Normal Bowel Sounds
Musculoskeletal: No Cyanosis and No Edema
Skin: Warm. Dry.
Neuro: Nonfocal/grossly intact
Assessment/Plan
# High-grade small bowel obstruction in the right lower quadrant
# History of possible ischemic colitis status post diverting loop ileostomy in September 2023
# History of parastomal hernia obstruction status post reduction
# Leukocytosis - IMPROVING
-CT abdomen showed per radiologist partial small bowel obstruction transition point within the right lower quadrant adjacent to parastomal hernia, large parastomal hernia contains nonobstructed small bowel, mild mesenteric edema associate with
dilated loops of small bowel favored to represent high-grade obstruction
-Blood cultures with no growth to date
-NG tube stopped today, start Clear Liquids diet
-Stop Zosyn
-Zofran
-Minimize pain medication for accurate abdominal exams; but continue low-dose Dilaudid, okay to add Toradol
-Surgery consulted at the time of admission, appreciate their evaluation and recommendations (patient has seen Dr. Delgado as an outpatient)
Paroxysmal atrial fibrillation
-Continue holding Pradaxa for 1 more day, as per my discussion today with Dr. Tonio Pappas
-Continue metoprolol
Hyperlipidemia
-Continue statin
Alpha-1 antitrypsin deficiency
Cirrhosis status post liver transfer 27 years ago
-Continue tacrolimus
-I spoke to clinical pharmacist who told me Tacrolimus sublingual dose is 50% of the PO dose -- therefore ordered 0.5 mg daily sublingual Tacrolimus for now since absorption may be unreliable
BPH
History of renal lesions likely cysts
DNR/DNI
DVT prophylaxis�SCDs. Lovenox.
N.p.o. except PO medications
Anticipated Discharge: Within 24 hours
Subjective/Interval History
-
Date of Service: September 17, 2024
Patient was seen and examined. He reported feeling better.
Objective Data
-
Labs:
Laboratory Results
09/17/24
07:32
WBC 12.9 H
Hgb 16.1
Hct 47.9
Plt Count 205 D
Sodium 143
Potassium 3.8
Chloride 102
Carbon Dioxide 28
BUN 30 H
Creatinine 1.2
Glucose 92
Calcium 9.5
Vital Signs:
Vital Signs
Temp Pulse Resp BP Pulse Ox
98.0 F 72 16 131/94 95
09/17/24 07:10 09/17/24 07:10 09/17/24 07:10 09/17/24 07:10 09/17/24 07:10
I&O
09/16/24 09/17/24 09/18/24
06:59 06:59 06:59
Intake Total 2950 / 2950 480 / 480
Output Total 4850 / 4850 3385 / 3385
Balance -1900 / -1900 -2905 / -2905
--- NOTE | 2024-09-17 11:46 | W.PN.CRS1 ---
Today's Communication / Plan
-
As below
Assessment/Plan
-
79-year-old male with PMH of severe proctocolitis, concerning for possible ischemic colitis, s/p diverting loop ileostomy September 2023, alpha 1 antitrypsin s/p liver transplant 26 years ago, liver cirrhosis, HTN who presents with nausea/vomiting and
abdominal distention, CT showing RLQ diverting ileostomy with SBO with transition point adjacent to large parastomal hernia; being treated for likely adhesive SBO as the parastomal hernia is large and partly reducible
AFVSS, ostomy output 2.2 L
WBC 12.9 from 11.1, CR 1.2
�SBO, most likely likely adhesive versus strangulated parastomal hernia; improving with nonoperative measures
�Okay to remove NGT and start clears
�Okay to restart home medications including p.o. tacrolimus
� Encourage IS/OOB
� IV Zosyn per hospitalist, no antibiotics necessary from colorectal standpoint
� Continue continue DVT PPx with Lovenox
� Appreciate hospitalist
Subjective Data
Subjective Data
Date of Service: September 17, 2024
No overnight events. NG tube clamped overnight, no N/V or abdominal bloating.
Denies abdominal pain
Having ostomy function
Objective Data
-
Vital Signs
Temp Pulse Resp BP Pulse Ox
98.0 F 72 16 131/94 95
09/17/24 07:10 09/17/24 07:10 09/17/24 07:10 09/17/24 07:10 09/17/24 07:10
Intake & Output
09/16/24 09/17/24 09/18/24
06:59 06:59 06:59
Intake Total 2950 / 2950 480 / 480
Output Total 4850 / 4850 3385 / 3385
Balance -1900 / -1900 -2905 / -2905
Intake:
Oral fluids 320 / 320
IV fluids (Total) 2700 / 2700
IV piggybacks 100 / 100 100 / 100
Amount instilled into GI Tube ( 150 / 150 60 / 60
Total)
[place] Sump 150 / 150 60 / 60
Output:
Liquid stool amount 1250 / 1250 2275 / 2275
Ileostomy 1250 / 1250 2275 / 2275
Gastrointestinal tube output ( 2550 / 2550 800 / 800
Total)
[place] Sump 2550 / 2550 800 / 800
Urine, Voided 1050 / 1050 310 / 310
Other:
Number of approximated MODERATE 1
amounts of urine
Number of approximated LARGE 1
amounts of urine
Number of unmeasured liquid
stools
Ileostomy 2
Lab Results
09/17/24 07:32
09/17/24 07:32
Physical Exam
-
General: No Acute Distress and AOx3
HEENT: Grossly Normal and Other (NGT clamped)
Abdomen: Soft, Non Distended, Non Tender, No Guarding, No Rebound and Other (Large subcostal scar well-healed; ostomy pink and productive of succus with peristomal bulge that is soft without skin changes)
Skin: Warm and Dry
Wound: No Signs of Infection
--- NOTE | 2024-09-17 13:12 | PTCARENOTE ---
Ileostomy bag changed by patient. NG tube discontinued. CLD ordered. Patient has no c/o of N/V.
[2024-09-17 15:10] VITALS: BP 119/78
[2024-09-17] MEDS: LOVENOX 40 MG SC (16:53)
[2024-09-17] MEDS: TOPROL XL 25 MG PO (16:53)
--- NOTE | 2024-09-17 17:32 | W.PN.GS2 ---
Today's Communication / Plan
-
-- Clears, likely LRD tomorrow
Assessment / Plan
-
79-year-old male s/p liver transplant remotely with PMH of severe proctocolitis s/p diverting loop ileostomy in September 2023 presenting with SBO with transition point on CT at the hernia neck there does not appear to be any bowel thread within the
hernia sac. Hernia is soft and somewhat reducible although this is limited given his body habitus.
AFVSS
Labs stable, leukocytosis, lactic acid normalized
No need for acute intervention - obstruction resolving and no signs of strangulation. No plans for surgical intervention from general surgery standpoint at this time. Repair of parastomal hernia with a continued loop and at his weight is likely to
be futile. Needs plan from CRS standpoint either ileostomy reversal, TAC with end ileostomy, or TAC with ileorectal anastomosis. Any repair of his parastomal hernia would be performed at the time of his CRS operation.
-- Clears, likely LRD tomorrow
-- Surgical care primarily via CRS
Subjective Data
-
Date of Service: September 17, 2024
No complaints. Feels improved. No nausea or vomiting. Passing loose stools and flatus. Afebrile.
Objective Data
-
Intake and Output
09/16/24 09/17/24 09/18/24
06:59 06:59 06:59
Intake Total 2950 / 2950 480 / 480 1240 / 1240
Output Total 4850 / 4850 3385 / 3385 1150 / 1150
Balance -1900 / -1900 -2905 / -2905 90 / 90
Intake:
Oral fluids 320 / 320 1140 / 1140
IV fluids (Total) 2700 / 2700
IV piggybacks 100 / 100 100 / 100 100 / 100
Amount instilled into GI Tube ( 150 / 150 60 / 60
Total)
[place] Sump 150 / 150 60 / 60
Output:
Liquid stool amount 1250 / 1250 2275 / 2275 1150 / 1150
Ileostomy 1250 / 1250 2275 / 2275 1150 / 1150
Gastrointestinal tube output ( 2550 / 2550 800 / 800
Total)
[place] Sump 2550 / 2550 800 / 800
Urine, Voided 1050 / 1050 310 / 310
Other:
Number of approximated MODERATE 1 2
amounts of urine
Number of approximated LARGE 1
amounts of urine
Number of unmeasured liquid
stools
Ileostomy 2
Vital Signs
Temp Pulse Resp BP Pulse Ox
98.4 F 67 16 119/78 94
09/17/24 15:10 09/17/24 15:10 09/17/24 15:10 09/17/24 15:10 09/17/24 15:10
Lab Results
09/17/24 07:32
09/17/24 07:32
Calcium 9.5 mg/dl (8.4-10.2) 09/17/24 07:32
Magnesium 2.0 mg/dl (1.6-2.3) 09/16/24 07:49
Total Bilirubin 1.2 mg/dl (0.2-1.3) 09/15/24 07:09
AST 37 U/L (17-59) 09/15/24 07:09
ALT 35 U/L (0-50) 09/15/24 07:09
Alkaline Phosphatase 105 U/L (38-126) 09/15/24 07:09
Total Protein 7.1 g/dl (6.3-8.2) 09/15/24 07:09
Albumin 3.9 g/dl (3.5-5.0) 09/15/24 07:09
Physical Exam
-
Gen: NAD
Abd: soft, NT, obese, ND, non-peritoneal, ostomy PPV, parastomal hernia soft, liquid stool and flatus
[2024-09-17 23:09] VITALS: BP 121/80
[2024-09-18 07:23] VITALS: BP 113/73
[2024-09-18 07:50] LABS: % Basophils 0.4 % (0-2); % Immature Granulocytes 0.2 % (0-0.5); % Lymphocytes 31.7 % (20.5-51.1); % Neutrophils 52.7 % (42.2-75.2); Absolute Eosinophils 0.3 10^3/uL (0-0.7); Absolute Lymphocytes 2.7 10^3/uL (1.2-3.4); Absolute Neutrophils 4.4 10^3/uL (1.4-6.5); Hematocrit 42.9 % (39.0-52.0); Hemoglobin 14.6 g/dL (13.0-18.0); Mean Corpuscular Volume 85.1 fL (80.0-94.0); Mean Platelet Volume 9.6 fL (7.4-10.4); Nucleated Red Blood Cells % 0 % (-); Platelet Count 180 10^3/uL (130-400); Red Blood Cell Count 5.04 10^6/uL (4.70-6.10); Red Cell Dist. Width 13.2 % (11.5-14.5); White Blood Cell Count 8.4 10^3/uL (4.8-10.8)
[2024-09-18 08:01] LABS: Blood Urea Nitrogen 26 mg/dl (9-20); Calcium 8.9 mg/dl (8.4-10.2); Carbon Dioxide 25 mmol/L (22-30); Chloride 100 mmol/L (98-107); Estimated Creatinine Clearance 67 ml/min; Glucose 96 mg/dl (70-99); Magnesium 2.2 mg/dl (1.6-2.3); Potassium 3.4 mmol/L (3.5-5.1); Sodium 137 mmol/L (135-145); eGFR > 60.00
--- NOTE | 2024-09-18 08:31 | W.PN.CRS1 ---
Today's Communication / Plan
-
low residue diet
no plans for OR during this admission
Assessment/Plan
-
79-year-old male with PMH of severe proctocolitis, concerning for possible ischemic colitis, s/p diverting loop ileostomy September 2023, alpha 1 antitrypsin s/p liver transplant 26 years ago, liver cirrhosis, HTN who presents with nausea/vomiting and
abdominal distention, CT showing RLQ diverting ileostomy with SBO with transition point adjacent to large parastomal hernia; being treated for likely adhesive SBO as the parastomal hernia is large and partly reducible
AFVSS, ostomy output 1.5 L
WBC 8.4 from 12.9, CR 1.0
�SBO, most likely likely adhesive versus strangulated parastomal hernia; improving with nonoperative measures
�Advanced to low residue
�Okay to restart home medications including p.o. tacrolimus
� Encourage IS/OOB
� Continue continue DVT PPx with Lovenox
� Appreciate hospitalist
- No plans for surgery during this admission from our perspective
- Okay for d/c later today if tolerating low residue
Subjective Data
Subjective Data
Date of Service: September 18, 2024
Patient states he feels 'fine'. He has been tolerating clears. He ordered breakfast. His stoma has function. He denies nausea or vomiting.
Objective Data
-
Vital Signs
Temp Pulse Resp BP Pulse Ox
97.6 F 58 18 113/73 95
09/18/24 07:23 09/18/24 07:23 09/18/24 07:23 09/18/24 07:23 09/18/24 07:23
Intake & Output
09/17/24 09/18/24 09/19/24
06:59 06:59 06:59
Intake Total 480 / 480 1720 / 1720
Output Total 3385 / 3385 1500 / 1500
Balance -2905 / -2905 220 / 220
Intake:
Oral fluids 320 / 320 1620 / 1620
IV piggybacks 100 / 100 100 / 100
Amount instilled into GI Tube ( 60 / 60
Total)
[place] Sump 60 / 60
Output:
Liquid stool amount 2274 1500 / 1499
Ileostomy 2274 1500 / 1500
Gastrointestinal tube output ( 800 / 800
Total)
[place] Sump 800 / 800
Urine, Voided 310 / 310
Other:
Number of approximated MODERATE 1 3
amounts of urine
Number of approximated LARGE 1
amounts of urine
Lab Results
09/18/24 07:02
09/18/24 07:02
Physical Exam
-
General: No Acute Distress and AOx3
Abdomen: Soft, Non Distended, Non Tender and Other (colostomy warm and pink with output)
Skin: Warm and Dry
[2024-09-18] MEDS: PROGRAF 0.5 MG SL (08:44)
[2024-09-18] MEDS: LIPITOR 40 MG PO (08:44)
--- NOTE | 2024-09-18 14:32 | CM ---
Patient seen at bedside.
Low residue diet
IMM explained & signed. In chart.
PLAN: Home, currently no needs
family to transport
--- NOTE | 2024-09-18 15:21 | W.PN.HOSP.TC ---
Today's Communication/Plan
-
Discharge today
Assessment / Plan
Assessment / Plan
Physical Exam
General: Not in acute distress
HEENT: Normocephalic
Respiratory: Clear to Auscultation Bilaterally
Cardiac: S1/S2 and Regular Rhythm
GI: Soft, Non Distended, Non Tender, Normal Bowel Sounds
Musculoskeletal: No Cyanosis and No Edema
Skin: Warm. Dry.
Neuro: Nonfocal/grossly intact
Assessment/Plan
# High-grade small bowel obstruction in the right lower quadrant
# History of possible ischemic colitis status post diverting loop ileostomy in September 2023
# History of parastomal hernia obstruction status post reduction
# Leukocytosis - IMPROVING
-CT abdomen showed per radiologist partial small bowel obstruction transition point within the right lower quadrant adjacent to parastomal hernia, large parastomal hernia contains nonobstructed small bowel, mild mesenteric edema associate with
dilated loops of small bowel favored to represent high-grade obstruction
-Blood cultures with no growth to date
-NG tube stopped yesterday
-Low residue diet on discharge
-Doing well off antibiotics (previously this hospitalization, patient was on Zosyn)
-Zofran
-Follow-up with Dr. Delgado outpatient
Paroxysmal atrial fibrillation
-Resume home Pradaxa
-Continue metoprolol
Hyperlipidemia
-Continue statin
Alpha-1 antitrypsin deficiency
Cirrhosis status post liver transfer 27 years ago
-Continue tacrolimus
-I spoke to clinical pharmacist who told me Tacrolimus sublingual dose is 50% of the PO dose -- therefore ordered 0.5 mg daily sublingual Tacrolimus
-On discharge, can continue home Tacrolimus
BPH
History of renal lesions likely cysts
DNR/DNI
DVT prophylaxis�SCDs. Lovenox.
More than 30 minutes spent in discharge including
Final examination of the patient
Summarizing hospital stay
Instructions for continuing care to all relevant caregivers
Preparation of discharge records, prescriptions, and referral forms
Total time spent (in minutes): 38
Anticipated Discharge: Today
Subjective/Interval History
-
Date of Service: September 18, 2024
Patient was seen and examined. He reported doing well, tolerating diet, denied any abdominal pain.
Objective Data
-
Labs:
Laboratory Results
09/18/24
07:02
WBC 8.4
Hgb 14.6
Hct 42.9
Plt Count 180
Sodium 137
Potassium 3.4 L
Chloride 100
Carbon Dioxide 25
BUN 26 H
Creatinine 1.0
Glucose 96
Calcium 8.9
Vital Signs:
Vital Signs
Temp Pulse Resp BP Pulse Ox
97.6 F 58 18 113/73 95
09/18/24 07:23 09/18/24 07:23 09/18/24 07:23 09/18/24 07:23 09/18/24 07:23
I&O
09/17/24 09/18/24 09/19/24
06:59 06:59 06:59
Intake Total 480 / 480 1720 / 1720
Output Total 3385 / 3385 1500 / 1500 1000 / 1000
Balance -2905 / -2905 220 / 220 -1000 / -1000
[2024-09-18] MEDS: KCL 40 MEQ PO (15:51)
[2024-09-18 15:53] VITALS: BP 122/76
--- NOTE | 2024-09-18 16:48 | W.DCSUMMARY ---
Discharge Summary
Discharge Data
Date of Admission: 09/14/24
Date of Discharge: 09/18/24
Total time spent discharging patient (in min): 38
-
Pending Results: No
Hospital Course
79-year-old male with past medical history of paroxysmal atrial fibrillation, hyperlipidemia, ischemic colitis status post permanent diverting ileostomy in 2023, parastomal hernia, prior small bowel obstruction, alpha-1 antitrypsin deficiency,
cirrhosis status post liver transplant, benign prostatic hyperplasia and renal lesions, presented with abdominal pain. CT Imaging was done, patient was found to have small bowel obstruction, and general surgery was consulted. Patient was made
N.P.O., intravenous fluids were given, and nasogastric tube was placed to suction. Initially there as no output from his stoma, but eventually he had good output and his symptoms improved. Patient was initially given Zosyn, but later it was
determined that the Zosyn could be stopped. NG tube was discontinued, patient tolerated his diet, and he was stable for discharge.
Discharge Plan
-
Patient Disposition: Home (Routine Discharge)
Discharge Diagnosis/Procedures: #High-grade small bowel obstruction in the right lower quadrant
#History of possible ischemic colitis status post diverting loop ileostomy in September 2023
#History of parastomal hernia obstruction status post reduction
#Leukocytosis - IMPROVING
#Paroxysmal Atrial Fibrillation
#Hyperlipidemia
#Alpha-1 antitrypsin deficiency
#Cirrhosis status post liver transfer 27 years ago
#Benign Prostatic Hyperplasia
#History of renal lesions likely cysts
Condition: Good
Diet: Low Residue
Blood Work: Check CBC, BMP and Magnesium by September 23, [address] Tirado's office.
Activity Restrictions/Additional Instructions:
Call your transplant team [facility] this week (latest by tomorrow September 19, 2024) and update them that your Tacrolimus level (which was taken on 09/16/24) was 4.8 NG/ML -- and ask them whether your Tacrolimus dose needs to be adjusted.
Referrals:
Eric Tirado MD [Family Provider] - in less than 1 week
Additional Discharge Medication Instructions: Potassium is a new medication.
Prescriptions:
New
potassium chloride 10 mEq capsule, extended release
10 meq PO DAILY Qty: 7 0RF
Continued
tacrolimus 1 mg Capsule
1 mg PO DAILY
Patient Comments:
PT takes that med at 10:00
cholecalciferol (vitamin D3) 25 mcg (1,000 unit) Capsule
25 mcg PO DAILY
Rx Instructions:
Pt takes at 10:00
cetirizine 10 mg Capsule
10 mg PO DAILY
Patient Comments:
Pt takes at 10:00
dutasteride-tamsulosin 0.5-0.4 mg Capsule, Er Multiphase 24 Hr
1 cap PO DAILY
Patient Comments:
Pt takes at 10:00
therapeutic multivitamin Tablet
1 tab PO DAILY
Rx Instructions:
Pt tatkes med at 10:00
atorvastatin 40 mg Tablet
40 mg PO DAILY
Patient Comments:
Pt takes a 10:00 am daily
loperamide 2 mg Capsule
2 mg PO DAILY
Rx Instructions:
Takes in am morning time
metoprolol succinate 25 mg tablet extended release 24 hr
25 mg PO QPM
Rx Instructions:
Medication is on hold at present
dabigatran etexilate [Pradaxa] 150 mg capsule
150 mg PO BID
Rx Instructions:
Pradaxa is currently on hold per pt.
Discharge Orders:
Discharge Patient (As Directed); Ordered 09/18/24
Ordered By: Chi Darby
Discharge Date and Time
Discharge Date/Time: 09/18/24 18:37
Print Language: LEBANESE
[2024-09-18] MEDS: LOVENOX 40 MG SC (17:00)
[2024-09-18] MEDS: TOPROL XL 25 MG PO (17:00)
--- NOTE | 2024-09-18 18:34 | PTCARENOTE ---
Patient d/c via wheelchair; patient's daughter at bedside and is his ride home; IV removed; patient verbalized understanding of discharge instructions.
== END 2024-09-18 18:37 | disposition home or self-care (01) | DRG 389 ==
LOC: 2 NORTH 13:42
PROVIDERS: Physician Assistant; Surgery; ADMITTING PHYSICIAN Hospitalist; ATTENDING PHYSICIAN Hospitalist; CONSULT PHYSICIAN Surgery; EMERGENCY PHYSICIAN Emergency Medicine; FAMILY PHYSICIAN Internal Medicine
PROC: 0D9670Z Drainage of Stomach with Drainage Device, Via Natural or Artificial Opening (ICD-10-PCS; 2024-09-14)
DX: K56.51 Intestinal adhesions [bands], with partial obstruction (principal); E87.21 Acute metabolic acidosis; Z94.4 Liver transplant status; K55.9 Vascular disorder of intestine, unspecified; E66.9 Obesity, unspecified; K43.5 Parastomal hernia without obstruction or gangrene; E78.00 Pure hypercholesterolemia, unspecified; R11.2 Nausea with vomiting, unspecified; I10 Essential (primary) hypertension; I48.0 Paroxysmal atrial fibrillation; E88.01 Alpha-1-antitrypsin deficiency; N40.0 Benign prostatic hyperplasia without lower urinary tract symptoms; Z66 Do not resuscitate; Z96.641 Presence of right artificial hip joint; Z96.652 Presence of left artificial knee joint; Z88.1 Allergy status to other antibiotic agents; Z68.31 Body mass index [BMI] 31.0-31.9, adult; Z93.2 Ileostomy status; Z98.1 Arthrodesis status; Z79.621 Long term (current) use of calcineurin inhibitor
CPT/HCPCS: 71045; 74177; 80048; 80053; 80197; 83605; 83690; 83735; 85025; 85610; 85730; 87040; 96374; 96375; 96376; 99285; Q9967

== ENCOUNTER 2024-10-05 16:37 | Inpatient (IN) | payer MEDICARE, OTHER, SELFPAY ==
[2024-10-05] VITALS (22 sets, daily range): BP systolic 109–156; BP diastolic 76–109; BMI 35.1; BMI 35.7
[2024-10-05] MEDS: ZOFRAN 4 MG IV (10:24)
[2024-10-05 10:28] LABS: % Basophils 0.3 % (0-2); % Eosinophils 1.3 % (0-6); % Immature Granulocytes 0.3 % (0-0.5); % Lymphocytes 25.9 % (20.5-51.1); % Monocytes 5.5 % (1.7-9.3); % Neutrophils 66.7 % (42.2-75.2); Absolute Eosinophils 0.2 10^3/uL (0-0.7); Absolute Lymphocytes 3.1 10^3/uL (1.2-3.4); Absolute Monocytes 0.7 10^3/uL (0.1-0.6); Hematocrit 45.7 % (39.0-52.0); Hemoglobin 15.3 g/dL (13.0-18.0); Mean Corp Hgb Conc. 33.5 g/dL (33.0-37.0); Mean Corpuscular Hgb 28.8 pg (27.0-31.0); Mean Corpuscular Volume 86.1 fL (80.0-94.0); Mean Platelet Volume 9.9 fL (7.4-10.4); Nucleated Red Blood Cells % 0 % (-); Platelet Count 178 10^3/uL (130-400); Red Blood Cell Count 5.31 10^6/uL (4.70-6.10); Red Cell Dist. Width 13.8 % (11.5-14.5)
[2024-10-05] MEDS: NSS 1000 IV ×2 (10:28→17:57)
[2024-10-05] MEDS: DILAUDID 1 MG IV ×2 (10:28→11:27)
--- NOTE | 2024-10-05 10:30 | ED.GENMED ---
History of Present Illness
General
Chief Complaint: Abdominal Pain
Time Seen by Provider: 10/05/24 10:15
History of Present Illness
History of Present Illness:
79-year-old male with past medical history of paroxysmal atrial fibrillation, hyperlipidemia, ischemic colitis status post permanent diverting ileostomy in 2023, parastomal hernia, prior small bowel obstruction, alpha-1 antitrypsin deficiency,
cirrhosis status post liver transplant presenting for abdominal pain. Patient reports symptoms started this morning. Was having normal output of his ostomy last evening, decreased output today. Since this morning has had severe abdominal pain
with nausea and vomiting radiating up to his chest. He notes that symptoms feel similar to prior hospital admission at which time he was told he had a bowel blockage. He has not been able to tolerate any p.o. Denies difficulty breathing. Denies
fever or recent illness. Denies additional acute medical complaints
Past History
Past History
ED Past Medical History: Hypercholesterolemia and Other (Liver transplant, ostomy, ischemic colitis)
ED Past Surgical History: Orthopedic, Tonsilectomy and Other
Social History
Tobacco: Non-smoker
Alcohol: None
Drug: None
Personal:
Living: with family
Phy Exam
Physical Exam
Physical Exam:
General: Uncomfortable in appearance secondary to pain, diaphoretic
HEENT: protecting airway
Neck: appears supple
CV: Normal heart rate, regular rhythm
Resp: No accessory muscle use, no increased work of breathing
Abd: Moderate distention with generalized tenderness to palpation. Right lower quadrant ostomy with minimal output
Extremities: No deformities, no swelling
Neuro: alert, no focal neurologic deficit
: deferred
Rectal: deferred
Psych: Normal affect
Skin: Intact
Course
Orders/Labs/Results
Orders:
Orders
10/05/24 10:07
ECG [Electrocardiogram (*1)] Urgent
Reason for Study: Chest Pain
10/05/24 10:08
EKG- Treatment ONCE
10/05/24 10:16
0.9% Sodium Chloride 1000 ml [Nss] 1,000 ml IV BOLUS
HYDROmorphone [Dilaudid] 1 mg IV NOW STA
Ondansetron Injectable [Zofran] 4 mg IV NOW STA
10/05/24 10:17
CT Abd/pelvis W Iv Cont Urgent
Comment:
Reason For Exam: abdominal pain, suspected obstruction
10/05/24 10:19
Complete Blood Count/With Diff Urgent
Lactic Acid Q4H
Comment: CANCEL 2nd LACTIC ACID IF 1st LACTIC ACID IS LESS THAN 2
PTT Urgent
Prothrombin Time Urgent
10/05/24 11:00
Comprehensive Metabolic Panel Urgent
Lipase Urgent
Troponin I Urgent
10/05/24 11:25
HYDROmorphone [Dilaudid] 1 mg IV NOW STA
10/05/24 11:26
HYDROmorphone [Dilaudid] 1 mg .ROUTE .STK-MED ONE
10/05/24 14:09
Type And Crossmatch [Type+Screen] Stat
Lactic Acid Q4H
Comment: CANCEL 2nd LACTIC ACID IF 1st LACTIC ACID IS LESS THAN 2
10/05/24 14:23
Abdomen/Pelvis wo Contrast CT [CT Abd/pelvis Wo Iv Cont] Stat
Comment:
Reason For Exam: parastomal hernia reduced, reeval with imaging
Abnormal Lab Results
10/05/24 10/05/24
10:19 11:00
WBC 12.0 H 10^3/uL
(4.8-10.8)
Absolute Neuts (auto) 8.0 H 10^3/uL
(1.4-6.5)
Absolute Monos (auto) 0.7 H 10^3/uL
(0.1-0.6)
PT 15.3 H Sec
(11.4-14.6)
Chloride 109 H mmol/L
(98-107)
Carbon Dioxide 21 L mmol/L
(22-30)
Glucose 144 H mg/dl
(70-99)
Lactic Acid 2.5 H mmol/L
(0.7-2.0)
Alkaline Phosphatase 134 H U/L
(38-126)
10/05/24 10:19
10/05/24 11:00
Vital Signs
Initial and Last Documented VS:
Initial Vital Signs
Temp Pulse Resp BP Pulse Ox
97.4 F 67 18 152/76 99
10/05/24 10:04 10/05/24 10:04 10/05/24 10:04 10/05/24 10:04 10/05/24 10:04
Last Documented Vital Signs
Temp Pulse Resp BP Pulse Ox
97.6 F 70 24 145/85 93
10/05/24 14:20 10/05/24 14:00 10/05/24 12:15 10/05/24 14:00 10/05/24 14:00
MDM/Problems Addressed
MDM/Problems Addressed:
79-year-old male with past medical history of paroxysmal atrial fibrillation, hyperlipidemia, ischemic colitis status post permanent diverting ileostomy in 2023, parastomal hernia, prior small bowel obstruction, alpha-1 antitrypsin deficiency,
cirrhosis status post liver transplant presenting for generalized abdominal pain with nausea and vomiting. Vital signs on arrival are significant for hypertension.
On exam, patient is uncomfortable in appearance, diaphoretic. Notes similar symptoms during recent hospital admission for bowel obstruction. On review of EMR, patient was admitted from 09/14 to 09/18, did have a bowel obstruction that was relieved
with NG tube decompression. Patient is following with Dr. Delgado. Concern for bowel obstruction. Patient unable to tolerate p.o. at this time. This reason we will obtain CT with IV contrast. Will obtain lactic acid, with history of bowel
ischemia in the past. Will administer Dilaudid and Zofran for patient comfort. Patient noting pain rating to his chest. EKG without acute ischemia.
13:20 -Labs show elevated lactic acid as well as leukocytosis. Alerted by radiology that CT is consistent for incarcerated loop of small bowel and right lower quadrant parastomal hernia with concern for ischemia. Surgery on-call alerted.
14:30 -surgery was able to reduce hernia. Plan for dry scan to ensure appropriate reduction. Recommending admission, and consultation with colorectal surgery. CT shows possible evidence of diverticulitis. Surgery notes without need for
antibiotics at this time. Will continue to monitor. Patient's pain has improved. Will admit to hospital service.
*EKG
Interpreted by ED Provider?: Yes
EKG Intrepretation Date: 10/05/24
EKG Intrepretation Time: 10:37
Interpretation: normal
Comparison EKG: no changes (06/13/24)
Heart Rate: 62
Rate: normal
Rhythm: sinus
[employer]: left axis deviation
Interval: normal interval
QRS Pattern: normal QRS
Ischemia: no ischemia
*Critical Care Note
Total Time (30-74mins, 75-104mins- exclusive of procedures): Not Applicable
ED Attending Note
-
Portions of this chart may have been created with voice recognition software.� Occasional wrong word or��sound alike� substitutions may have occurred due to the inherent limitations of voice recognition software.
Discharge Plan
Departure
Prescriptions:
No Action
tacrolimus 1 mg Capsule
1 mg PO DAILY
cholecalciferol (vitamin D3) 25 mcg (1,000 unit) Capsule
25 mcg PO DAILY
cetirizine 10 mg Capsule
10 mg PO DAILY
Patient Comments:
Pt takes at 10:00
dutasteride-tamsulosin 0.5-0.4 mg Capsule, Er Multiphase 24 Hr
1 cap PO DAILY
therapeutic multivitamin Tablet
1 tab PO DAILY
atorvastatin 40 mg Tablet
40 mg PO DAILY
loperamide 2 mg Capsule
2 mg PO DAILY
metoprolol succinate 25 mg tablet extended release 24 hr
25 mg PO QPM
dabigatran etexilate [Pradaxa] 150 mg capsule
150 mg PO BID
Rx Instructions:
Pradaxa is currently on hold per pt.
Referrals:
Eric Tirado MD [Family Provider] -
Interventions
Interventions:
*Risk Screen - Suicide Last Done: 10/05/24 10:04
*General Assessment Last Done: 10/05/24 10:04
*Neglect/Abuse Screening Last Done: 10/05/24 10:04
*ED COVID-19 Vaccine History Last Done: 10/05/24 10:14
[id number] Assessment Last Done: 10/05/24 10:30
Discharge Date and Time
Print Language: NIUEAN
[2024-10-05 10:39] LABS: INR 1.18; PT 15.3 Sec (11.4-14.6)
[2024-10-05 10:40] LABS: APTT 33.2 Sec (23.4-35.0); Lactic Acid 2.5 mmol/L (0.7-2.0)
[2024-10-05 11:22] LABS: ALT (SGPT) 36 U/L (0-50); AST (SGOT) 38 U/L (17-59); Albumin 3.7 g/dl (3.5-5.0); Alkaline Phosphatase 134 U/L (38-126); Blood Urea Nitrogen 14 mg/dl (9-20); Calcium 8.5 mg/dl (8.4-10.2); Carbon Dioxide 21 mmol/L (22-30); Chloride 109 mmol/L (98-107); Estimated Creatinine Clearance 88 ml/min; Glucose 144 mg/dl (70-99); Lipase 57 U/L (23-300); Potassium 4.1 mmol/L (3.5-5.1); Sodium 139 mmol/L (135-145); Total Bilirubin 0.7 mg/dl (0.2-1.3); Total Protein 6.7 g/dl (6.3-8.2); eGFR > 60.00
[2024-10-05 11:33] LABS: Troponin I < 0.012 ng/ml
--- NOTE | 2024-10-05 13:45 | HPS.HSE ---
Family Physician
-
Family Physician: Eric Tirado MD
Chief Complaint
-
Abdominal Pain
History of Present Illness
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
with abdominal pain. Patient coming in with right lower quadrant abdominal pain around his stoma earlier today which was associated with nausea and vomiting. He notes less than his usual amount was present in his ostomy this morning. He was unable
to tolerate breakfast this morning, and did not take his medications due to vomiting. Due to prior history he presented to the emergency department for evaluation.
While in the emergency department CT scan raise concern for incarcerated parastomal hernia. Surgery evaluated patient in the emergency department and was able to reduce hernia at bedside. Follow-up CT scan confirmed resolution of incarcerated
hernia. However given recurrent nature of his symptoms surgery requested admission to the hospital.
Medical History
Past Medical History
Past Medical History: Reports Other
Additional Past Medical History:
Paroxysmal Atrial Fibrillation
Alpha-1 Antitrypsin Deficiency
Cirrhosis s/p Liver Transplant
Ischemic Colitis /p Permanent Diverting Ileostomy
Parastomal Hernia with Multiple SBOs
Hypertension
Hyperlipidemia
BPH
Past Surgical History: Reports Other
Additional Past Surgical History:
Liver Transplant (26 years ago - followed at [facility])
Diverting Loop Ileostomy (09/26/23)
Cervical Fusion
Lumbar Fusion
Right Rotator Cuff Repair
Left TKA
Right ABE
Social History
Tobacco: Non-smoker
Alcohol: None
Drug: None
Family History
Family History: Other (Mother: CKD Father: CAD)
Allergies / Home Medications
Allergies reflects when Allergies were last updated in [employer].
Home Medications with original date entered in [employer]
Allergy/Medication List:
Allergies
Allergy/AdvReac Type Severity Reaction Status Date / Time
erythromycin base Allergy Unknown Verified 10/05/24 10:04
pollen extracts Allergy Unknown Verified 10/05/24 10:04
Home Medications
cetirizine 10 mg capsule 10 mg PO DAILY Allergies 09/13/23
cholecalciferol (vitamin D3) 25 mcg (1,000 unit) capsule 25 mcg PO DAILY Supplement 09/13/23
dutasteride 0.5 mg-tamsulosin ER 0.4 mg capsule ext.release 24hr mphas 1 cap PO DAILY Urinary Issue 09/13/23
tacrolimus 1 mg capsule, immediate-release 1 mg PO DAILY Liver Issues 09/13/23
therapeutic multivitamin 1 tab PO DAILY Supplement 09/13/23
atorvastatin 40 mg tablet 40 mg PO DAILY High Cholesterol 05/12/24
loperamide 2 mg capsule 2 mg PO DAILY Loose Stools 09/14/24
dabigatran etexilate 150 mg capsule (Pradaxa) 150 mg PO BID Blood Clot Prevention/Tx 09/15/24
metoprolol succinate 25 mg tablet,extended release 24 hr 25 mg PO QPM Heart Disease/Condition 09/15/24
Review of Systems
-
A 12 point ROS was completed and negative except as noted: Yes
Constitutional: Denies Fever or Chills
Respiratory: Denies Cough or Trouble Breathing
Cardiac: Denies Chest Pain or Palpitations
Abdomen/GI: Reports See HPI
Physical Exam
Vital Signs
Vital Signs
Temp Pulse Resp BP Pulse Ox
97.4 F 85 24 145/103 94
10/05/24 10:04 10/05/24 12:30 10/05/24 12:15 10/05/24 12:20 10/05/24 12:30
Physical Exam
General: Comfortable and Conversant
HEENT: Anicteric and Moist mucous membranes
Respiratory: Clear and Non Labored Respirations
Cardiac: S1/S2 and Regular Rhythm
GI: Soft, Non Tender, Ostomy (Ileostomy with parastomal hernia) and Other (Hypoactive bowel sounds)
Rectal: Deferred by Provider
Musculoskeletal: No Clubbing and No Cyanosis
Skin: Warm and Dry
Neuro: Awake, Alert, Oriented and Nonfocal/grossly intact
Psych: Calm
Laboratory Results
-
10/05/24 10:19
10/05/24 11:00
Laboratory Results
PT 15.3 Sec (11.4-14.6) H 10/05/24 10:19
INR 1.18 10/05/24 10:19
APTT 33.2 Sec (23.4-35.0) 10/05/24 10:19
Lactic Acid 2.5 mmol/L (0.7-2.0) H 10/05/24 10:19
Total Bilirubin 0.7 mg/dl (0.2-1.3) 10/05/24 11:00
AST 38 U/L (17-59) 10/05/24 11:00
ALT 36 U/L (0-50) 10/05/24 11:00
Alkaline Phosphatase 134 U/L (38-126) H 10/05/24 11:00
Troponin I < 0.012 ng/ml 10/05/24 11:00
Lipase 57 U/L (23-300) 10/05/24 11:00
Data Reviewed
-
CT Scan: Report Reviewed by me
Lab Data: Labs Reviewed by me
Old Records: Reviewed
Impression/Plan
-
Recurrent Peristomal Hernia
-Initially appeared incarcerated however surgery was able to reduce in the emergency department
-Reviewed with general surgery
-Allow clear liquids
Paroxysmal Atrial Fibrillation
-Hold Pradaxa should patient require surgery this admission
-Continue metoprolol for rate control
Essential Hypertension
-Continue metoprolol
Hyperlipidemia
-Continue atorvastatin
BPH
-Continue dutasteride-tamsulosin
Hx Cirrhosis due to Alpha-1 Antitrypsin Deficiency s/p Liver Transplant
-Continue tacrolimus
Hx Ischemic Colitis /p Permanent Diverting Ileostomy
DVT proph: SCDs
Code Status: Full Code
--- NOTE | 2024-10-05 13:53 | CON.GS ---
Addendum entered and electronically signed by Vineet Delgado MD 10/05/24 20:22:
pt seen and examined with surgical SATURATOR earlier this afternoon.
HPI: 79 y.o. male known to our surgical service with parastomal hernia. Acute onset of pain at site with firm swelling, nausea/vomiting and reduced ostomy outputs. Was lifting more than usual around the house yesterday but felt well at the time
AFVSS
NAD AAOx3
ABD: soft but tensely distended at right sided parastomal hernia with edematous mucosa at loop ileostomy and scant fluid/air in appliance.
CT a/p with large parastomal hernia containing multiple loops of SB but one loop appears to be distended with transition point at the neck of the hernia. some associated inflammatory changes and thickening suggestive of developing strangulation.
A/P: 79 male with acutely incarcerated parastomal hernia with resultant SBO.
At bedside with the patient in supine position I was able to apply firm consistent pressure over the superior/lateral aspect of the parastomal hernia and felt the incarcerated contents reduce. After this the parastomal hernia was much softer and
more readily reducible. pt states improvement in pain after reduction
Follow up CT imaging confirmed obstructing/incarcerated loop of SB was reduced back to an intraabdominal location. no radiographic evidence of bowel compromise with reduction.
clear liquid diet
monitor for return of GI function after reduction of hernia
supportive care with IVF, analgesics and antiemetics prn
will discuss with CR surgery- dr regan tomorrow
anticipate getting a follow up GGE study to evaluate underlying colonic pathology and determine best course of management for parastomal hernia and colon
will follow
Original Note:
Medical History
-
Chief Complaint: abdominal pain with n/v
History of Present Illness:
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
wiht admission in April and August of 2024 for management who presents today with pain to the hernia site with nausea and bilious emesis this morning. Yesterday, he carried 4 large water bottles for his water cooler as well as large bags of salt
in anticipation of the snow storm. He had dinner as usual and emptied his stoma appliance. He emptied it again early this morning and a little less than the usual amount was present but not much flatus. He began to have pain to the RLQ around the
stoma beginning this morning with nausea and vomiting. He did not eat breakfast or take his other medications due to vomiting. As his symptoms persisted, he presented for evaluation. He is feeling somewhat better since being medicated in the ED but
still with mild pain. Nausea has mostly resolved.
Past Medical History
Past Medical History: Arrhythmias (PAF on pradax, LD 10/04/24 pm) and Other (Alpha-1 Antitrypsin Deficiency, Cirrhosis, Ischemic Colitis, Chronic Diarrhea, BPH, Obesity, recurrent SBO from parastomal hernia)
Past Surgical History: Bowel Resection (Diverting Loop Ileostomy (09/26/23) for proctocolitis with resultant stricture ?ischemic), Orthopedic (Cervical Fusion, Lumbar Fusion, Right Rotator Cuff Repair, Left TKA, Right ABE), Tonsilectomy and Other
(Liver and bone marrow transplant [facility] >25 years ago)
Social History
Tobacco: Non-Smoker
Alcohol: None
Personal:
Living: With Family
Family History
Family History: Reviewed & Not Pertinent
Allergies / Home Medications
Allergy/AdvReac Type Severity Reaction Status Date / Time
erythromycin base Allergy Unknown Verified 10/05/24 10:04
pollen extracts Allergy Unknown Verified 10/05/24 10:04
�Medication �Instructions �Recorded �Confirmed �Type
cetirizine 10 mg capsule 10 mg PO DAILY Allergies 09/13/23 10/05/24 History
cholecalciferol (vitamin D3) 25 25 mcg PO DAILY Supplement 09/13/23 10/05/24 History
mcg (1,000 unit) capsule
dutasteride 0.5 mg-tamsulosin ER 1 cap PO DAILY Urinary Issue 09/13/23 10/05/24 History
0.4 mg capsule ext.release 24hr
mphas
tacrolimus 1 mg capsule, 1 mg PO DAILY Liver Issues 09/13/23 10/05/24 History
immediate-release
therapeutic multivitamin 1 tab PO DAILY Supplement 09/13/23 10/05/24 History
atorvastatin 40 mg tablet 40 mg PO DAILY High Cholesterol 05/12/24 10/05/24 History
loperamide 2 mg capsule 2 mg PO DAILY Loose Stools 09/14/24 10/05/24 History
dabigatran etexilate 150 mg 150 mg PO BID Blood Clot 09/15/24 10/05/24 History
capsule (Pradaxa) Prevention/Tx
metoprolol succinate 25 mg 25 mg PO QPM Heart 09/15/24 10/05/24 History
tablet,extended release 24 hr Disease/Condition
Review of Systems
-
History Source: Patient and Family
All other systems: Negative unless noted
A 10 point review of systems was completed, and was negative except as per HPI.
Physical Exam
Vital Signs
Temp Pulse Resp BP Pulse Ox
97.4 F 85 24 145/103 94
10/05/24 10:04 10/05/24 12:30 10/05/24 12:15 10/05/24 12:20 10/05/24 12:30
10/04/24 10/05/24 10/06/24
06:59 06:59 06:59
Actual Weight 104.8 kg
Body Mass Index (BMI) 35.1
Lab Results
10/05/24 10:19
10/05/24 11:00
WBC 12.0 10^3/uL (4.8-10.8) H 10/05/24 10:19
Hgb 15.3 g/dL (13.0-18.0) 10/05/24 10:19
Hct 45.7 % (39.0-52.0) 10/05/24 10:19
Plt Count 178 10^3/uL (130-400) 10/05/24 10:19
Abs Immat Gran (auto) 0.0 10^3/uL (0-0.05) 10/05/24 10:19
Neutrophils % 66.7 % (42.2-75.2) 10/05/24 10:19
Physical Exam
General: Well Developed
HEENT: Normocephalic and Moist Mucous Membranes
Respiratory: Non Labored Respirations
GI: Soft, Tender (RLQ around stoma), Distended (mild) and Other (large firm parastomal hernia with edema to the stoma, small amount of liquid stool in the appliance)
Skin: Warm and Dry
Neuro: Awake, Alert and AO x 3
Psych: Calm
Data Reviewed
-
CT Scan: Image Personally Visualized and interpreted, Report Reviewed by me, Discussed with Physician, Discussed with Patient and Discussed with Family
Labs: Labs Reviewed by me, Discussed with Physician, Discussed with Patient and Discussed with Family
Old Records: Reviewed
Assessment / Plan
-
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
with admission in April and August of 2024 for management who presents today with pain to the hernia site with nausea and bilious emesis this morning after heavy lifting last night. CT imaging reviewed with RLQ parastomal hernia containing
incarcerated loop of small bowel. No pneumatosis present. Adjacent inflammatory fluid noted. Mild leukocytosis on labs. Bicarb decreased on chemistries. Lactic pending. Afebrile with hypertension, no tachycardia. Pain localized to hernia site on
exam with edema to the stoma but pink/patent. Parastomal hernia able to be reduced at bedside
Plan:
Admit to hospitalist service
OK for clears
Check CT imaging to confirm incarceration of bowel resolved
Hold Pradaxa in case emergent surgical intervention needed
Patient has been following with GS and CRS for definitive plan for hernia/stoma management
[2024-10-05 14:43] LABS: Lactic Acid 1.1 mmol/L (0.7-2.0)
[2024-10-05] MEDS: TOPROL XL 25 MG PO (17:56)
--- NOTE | 2024-10-05 18:44 | W.PN.UPDATE ---
Update Note
Progress Note Update
Attending note
I saw patient independently
79 y/o man with a past medical history of:
A-fib,
cirrhosis s/p liver transplant,
ischemic colitis s/p permanent diverting ileostomy,
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
The last SBO was mostly recently around New Years. He presents with abdominal pain. CT scan raised concern for incarcerated parastomal hernia. Surgery evaluated patient in the emergency department and was able to reduce hernia at bedside.
Follow-up CT scan confirmed resolution of incarcerated hernia. However given recurrent nature of his symptoms surgery requested admission to the hospital for overnight observation.
Past Medical History
Paroxysmal Atrial Fibrillation
Alpha-1 Antitrypsin Deficiency
Cirrhosis s/p Liver Transplant
Ischemic Colitis /p Permanent Diverting Ileostomy
Parastomal Hernia with Multiple SBOs
Hypertension
Hyperlipidemia
BPH
Liver Transplant (26 years ago - followed at [facility])
Diverting Loop Ileostomy (09/26/23)
Cervical Fusion
Lumbar Fusion
Right Rotator Cuff Repair
Left TKA
Right ABE
Physical Exam
General: Comfortable and Conversant
HEENT: Anicteric and Moist mucous membranes
Respiratory: Clear and Non Labored Respirations
Cardiac: S1/S2 and Regular Rhythm
GI: Soft, Non Tender, Ostomy (Ileostomy with parastomal hernia) and Other (Hypoactive bowel sounds)
Psych: Calm
Impression/Plan
1. Recurrent Peristomal Hernia
-surgery was able to reduce in the emergency department
-Allow clear liquids
Observe overnight
Please see PA note for full details on:
Paroxysmal Atrial Fibrillation
Essential Hypertension
Hyperlipidemia
BPH
Cirrhosis due to Alpha-1 Antitrypsin Deficiency s/p Liver Transplant
Hx Ischemic Colitis /p Permanent Diverting Ileostomy
DVT proph: SCDs
Code Status: Full Code
--- NOTE | 2024-10-05 18:57 | PTCARENOTE ---
Rec'd pt from ER. walked to bed using his single point cane. Denies pain. Was on 3L02. Decreased to 2L as he was 99%. NSS initiate at 100ml/hr per order. Tele pack #40 placed on pt. Oriented to room and unit.
1819 pt took chair that was leaning against radiator which in pulled radiator off of the wall. Option was given to move pt to another semi private room and he refused. Maintenance did come up and fix radiator.
0 pt took his oxygen off as he felt confined by it. Pulse Ox was 97%. Instructed pt to make RN aware he if becomes short of breath.
[2024-10-06 03:10] VITALS: BP 111/72
--- NOTE | 2024-10-06 06:22 | W.PN.HOSP.TC ---
Today's Communication/Plan
-
clear liquid diet
npo after midnight
enemas preparation OR as per surgery
cont hold home Pradaxa
Assessment / Plan
Assessment / Plan
Physical Exam
General: Comfortable and Conversant
HEENT: Anicteric and Moist mucous membranes
Respiratory: Clear and Non Labored Respirations
Cardiac: S1/S2 and Regular Rhythm
GI: Soft, Non Tender, Ileostomy with parastomal hernia, bowel sounds present
Musculoskeletal: No Clubbing and No Cyanosis
Skin: Warm and Dry
Neuro: Awake, Alert, Oriented and Nonfocal/grossly intact
Psych: Calm
79M afib cirrhosis liver transplant ischemic colitis diverting ileostomy here for incarcerated parastomal hernia reduced at bedside by surgeon. admitted for further evaluation and treatment.
Recurrent Incarcerated Peristomal Hernia
-General Surgery and Surgery eval appreciated clear liquid diet for now npo after midnight for colonoscopy preparation/evaluation for upcoming surgical intervention Wed
-enemas in preparation as per surgery
Paroxysmal Atrial Fibrillation
-Hold Pradaxa for OR as per surgery
-Continue metoprolol for rate control
Essential Hypertension
-Continue metoprolol
Hyperlipidemia
-Continue atorvastatin
BPH
-Continue dutasteride-tamsulosin
Hx Cirrhosis due to Alpha-1 Antitrypsin Deficiency s/p Liver Transplant
-Continue tacrolimus
Hx Ischemic Colitis /p Permanent Diverting Ileostomy
DVT proph: SCDs
Code Status: Full Code
I spent a total of 40 minutes with the patient or on the floor. More than 50% of this time involved counseling and coordination of care.
Anticipated Discharge: 24 - 48 hours
Subjective/Interval History
-
Date of Service: October 06, 2024
Seen and examined at bedside in no acute distress. Ambulating without issues. Reports resolution in pain. Having bowel movements.
Objective Data
-
Labs:
Laboratory Results
10/06/24
06:00
WBC Pending
Hgb Pending
Hct Pending
Plt Count Pending
Sodium Pending
Potassium Pending
Chloride Pending
Carbon Dioxide Pending
BUN Pending
Creatinine Pending
Glucose Pending
Calcium Pending
Vital Signs:
Vital Signs
Temp Pulse Resp BP Pulse Ox
97.4 F 57 18 111/72 97
10/06/24 03:10 10/06/24 03:10 10/06/24 03:10 10/06/24 03:10 10/06/24 03:10
I&O
10/04/24 10/05/24 10/06/24
06:59 06:59 06:59
Intake Total 1000 / 1000
Output Total 1000 / 1000
Balance 0 / 0
[2024-10-06 07:32] VITALS: BP 109/76
[2024-10-06 08:14] LABS: Hemoglobin 13.1 g/dL (13.0-18.0); Mean Corp Hgb Conc. 33.6 g/dL (33.0-37.0); Mean Corpuscular Hgb 29.1 pg (27.0-31.0); Mean Corpuscular Volume 86.7 fL (80.0-94.0); Mean Platelet Volume 10.1 fL (7.4-10.4); Platelet Count 157 10^3/uL (130-400); Red Cell Dist. Width 13.8 % (11.5-14.5)
[2024-10-06] MEDS: FLOMAX 0.4 MG PO (08:16)
[2024-10-06] MEDS: PROSCAR 5 MG PO (08:16)
[2024-10-06] MEDS: LIPITOR 40 MG PO (08:16)
[2024-10-06] MEDS: PROGRAF 1 MG PO (08:16)
[2024-10-06] MEDS: ZYRTEC 10 MG PO (08:19)
[2024-10-06 08:36] LABS: Blood Urea Nitrogen 13 mg/dl (9-20); Calcium 8.4 mg/dl (8.4-10.2); Carbon Dioxide 21 mmol/L (22-30); Chloride 107 mmol/L (98-107); Estimated Creatinine Clearance 86 ml/min; Glucose 83 mg/dl (70-99); Sodium 136 mmol/L (135-145); eGFR > 60.00
--- NOTE | 2024-10-06 10:08 | W.PN.GS2 ---
Today's Communication / Plan
-
Okay for full liquid diet
Will discuss surgical planning with colorectal today.
Assessment / Plan
-
This is a 79-year-old male well-known to the colorectal and general surgery service for a parastomal hernia who presented to our hospital for an incarcerated parastomal hernia that was thankfully reduced in the setting of multiple previous
admissions for similar. General surgery consulted for definitive hernia repair but reluctant to do so in the setting of a loop colostomy which has a high risk for recurrence.
No acute general surgery intervention warranted at this time.
Okay for diet.
Will discuss with colorectal surgery definitive plan for his colon and possible change to a end colostomy. Timing to be determined
Continue holding anticoagulation
All questions answered, patient agreeable to plan of care above.
General surgery will follow peripherally for now.
Time Spent
Total Time Spent with Patient (in minutes): 20
Subjective Data
-
Date of Service: October 06, 2024
Interval Events:
No acute events overnight. Slept well. Pain Controlled. Denies Nausea/Vomiting, +bowel function. Tolerating diet.
Objective Data
-
Intake and Output
10/05/24 10/06/24 10/07/24
06:59 06:59 06:59
Intake Total 1000 / 1000
Output Total 1000 / 1000 400 / 400
Balance 0 / 0 -400 / -400
Intake:
IV fluids (Total) 1000 / 1000
Output:
Liquid stool amount 450 / 450
Ileostomy 450 / 450
Urine, Voided 550 / 550 200 / 200
Urostomy output 200 / 200
Vital Signs
Temp Pulse Resp BP Pulse Ox
98.1 F 78 18 109/76 99
10/06/24 07:32 10/06/24 07:32 10/06/24 07:32 10/06/24 07:32 10/06/24 07:32
Lab Results
10/06/24 07:12
10/06/24 07:12
Calcium 8.4 mg/dl (8.4-10.2) 10/06/24 07:12
Total Bilirubin 0.7 mg/dl (0.2-1.3) 10/05/24 11:00
AST 38 U/L (17-59) 10/05/24 11:00
ALT 36 U/L (0-50) 10/05/24 11:00
Alkaline Phosphatase 134 U/L (38-126) H 10/05/24 11:00
Total Protein 6.7 g/dl (6.3-8.2) 10/05/24 11:00
Albumin 3.7 g/dl (3.5-5.0) 10/05/24 11:00
Physical Exam
-
GENERAL/NEURO: Awake, Alert, no distress
CHEST: Unlabored breathing on RA
ABDOMEN: Soft, Non-Tender, Non-Distended, ostomy is pink patent and productive of liquid brown effluent
Patient has a briones catheter: No
Patient has a central line: No
[2024-10-06 11:01] VITALS: BP 110/81
--- NOTE | 2024-10-06 11:17 | W.PN.SURGUPD ---
Addendum entered and electronically signed by Vineet Delgado MD 10/06/24 12:18:
present for GGE with radiology
entire colon examined. underdistention of sigmoid colon but no clear sight of colon obstruction or strictures. entire colon visualized including cecum, appendix and terminal ileum.
discussed with dr regan and will place CR surgery consult for assistance with management recommendations regarding presence of ostomy/re-siting to new location with parastomal hernia repair or possible converting to colostomy/reversal.
Original Note:
Surgical Update
Surgical Update
pt seen in follow up
acute obstructive and pain resolved
ordered a gastrographin enema to evaluate residual colon.
likely will address parastomal hernia at this hospitalization therefore continue to hold pradaxa for anticipated OR
--- NOTE | 2024-10-06 12:54 | W.PN.UPDATE ---
Update Note
Progress Note Update
We were notified of the gastrogaffin enema results from Dr. Delgado. Dr. Alexander has plans to take the patient for a colonoscopy tomorrow afternoon around 2 PM. He would like to further evaluate the integrity of the colon to decide if there is a
possibility of reversing his ileostomy while Dr. Delgado is repairing his hernia this coming Sunday. The patient is to remain on clear liquids today and n.p.o. at midnight. He will get 2 enemas today and we will order another 2 enemas tomorrow.
I discussed this with the patient on the phone as well as with his .
[2024-10-06 15:17] VITALS: BP 134/66
--- NOTE | 2024-10-06 16:55 | WOUNDNOTE ---
[facility] RN NOTE: Stoma sited patient as requested by AZAM Sen. Patient has RUQ ileostomy with mucous fistula next to stoma. Both pink and functioning for brown liquid stool. Patient states he changes appliance Sunday and Sunday's no issues. RLQ marked
8cm from midline and 4cm distal from umbilical line. LLQ marked 3.5cm distal from umbilical line and 8.5cm from midline. LUQ marked 9cm from midline and 4cm proximal from umbilical line. Avoided creases and scars, assessed while sitting in chair.
Patient requesting lower quadrants if possible. Patient aware that surgeon has final say in location but will notify surgical group of request. Will follow post op as needed.
--- NOTE | 2024-10-06 17:00 | CM ---
digital content marketing manager reviewed patient's chart and patient resides with his spouse in a 2 story home with one step to enter, patient is independent with adl's and uses a cane with ambulation.
PCP: Sawyer Tirado
Pharmacy [facility] in [place].
Plan; Home when stable, with spouse.
[2024-10-06] MEDS: LOVENOX 40 MG SC (17:02)
[2024-10-06] MEDS: TOPROL XL 25 MG PO (17:02)
[2024-10-06 19:43] VITALS: BP 121/76
[2024-10-06 23:31] VITALS: BP 118/72
[2024-10-07 03:51] VITALS: BP 117/67
--- NOTE | 2024-10-07 07:26 | W.PN.HOSP.TC ---
Addendum entered and electronically signed by Xi Hoffman MD 10/08/24 07:23:
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
-tacrolimus necessary for immunosuppression liver transplant
Original Note:
Today's Communication/Plan
-
NPO for colonoscopy
enemas as per surgery
cont hold Pradaxa
Assessment / Plan
Assessment / Plan
Physical Exam
General: Comfortable and Conversant
HEENT: Anicteric and Moist mucous membranes
Respiratory: Clear and Non Labored Respirations
Cardiac: S1/S2 and Regular Rhythm
GI: Soft, Non Tender, Ileostomy with parastomal hernia, bowel sounds present
Musculoskeletal: No Clubbing and No Cyanosis
Skin: Warm and Dry
Neuro: Awake, Alert, Oriented and Nonfocal/grossly intact
Psych: Calm
79M afib cirrhosis liver transplant ischemic colitis diverting ileostomy here for incarcerated parastomal hernia reduced at bedside by surgeon. admitted for further evaluation and treatment.
Recurrent Incarcerated Peristomal Hernia
-General Surgery and Surgery eval appreciated clear liquid diet for now npo after midnight for colonoscopy preparation/evaluation for upcoming surgical intervention Wed
-enemas in preparation as per surgery
Paroxysmal Atrial Fibrillation
-Hold Pradaxa for OR as per surgery
-Continue metoprolol for rate control
Essential Hypertension
-Continue metoprolol
Hyperlipidemia
-Continue atorvastatin
BPH
-Continue dutasteride-tamsulosin
Hx Cirrhosis due to Alpha-1 Antitrypsin Deficiency s/p Liver Transplant
-Continue tacrolimus
Hx Ischemic Colitis /p Permanent Diverting Ileostomy
DVT proph: SCDs
Code Status: Full Code
I spent a total of 40 minutes with the patient or on the floor. More than 50% of this time involved counseling and coordination of care.
Anticipated Discharge: > 48 hours
Subjective/Interval History
-
Date of Service: October 07, 2024
No acute distress sitting up comfortably in chair. NPO awaiting colonoscopy. Otherwise patient reports feeling well denies significant pain at this time.
Objective Data
-
Labs:
Laboratory Results
10/07/24
07:15
WBC Pending
Hgb Pending
Hct Pending
Plt Count Pending
Sodium Pending
Potassium Pending
Chloride Pending
Carbon Dioxide Pending
BUN Pending
Creatinine Pending
Glucose Pending
Calcium Pending
Vital Signs:
Vital Signs
Temp Pulse Resp BP Pulse Ox
98.0 F 64 18 117/67 100
10/07/24 03:51 10/07/24 03:51 10/07/24 03:51 10/07/24 03:51 10/07/24 03:51
I&O
10/06/24 10/07/24 10/08/24
06:59 06:59 06:59
Intake Total 1000 / 1000 960 / 960
Output Total 1000 / 1000 400 / 400
Balance 0 / 0 560 / 560
[2024-10-07] MEDS: FLOMAX PO (07:37)
[2024-10-07] MEDS: PROSCAR PO (07:37)
[2024-10-07] MEDS: ZYRTEC PO (07:37)
[2024-10-07] MEDS: PROGRAF PO (07:37)
[2024-10-07] MEDS: LIPITOR PO (07:37)
[2024-10-07 07:55] VITALS: BP 116/74
[2024-10-07] MEDS: FLEET PHOSPHATE ENEMA-ADULT 135 ML RECTAL ×2 (08:46→11:42)
[2024-10-07 08:54] LABS: Hematocrit 42.1 % (39.0-52.0); Hemoglobin 14.1 g/dL (13.0-18.0); Mean Corp Hgb Conc. 33.5 g/dL (33.0-37.0); Mean Corpuscular Volume 86.6 fL (80.0-94.0); Mean Platelet Volume 9.8 fL (7.4-10.4); Platelet Count 160 10^3/uL (130-400); Red Blood Cell Count 4.86 10^6/uL (4.70-6.10); Red Cell Dist. Width 13.6 % (11.5-14.5); White Blood Cell Count 6.4 10^3/uL (4.8-10.8)
[2024-10-07 09:26] LABS: Blood Urea Nitrogen 9 mg/dl (9-20); Calcium 8.8 mg/dl (8.4-10.2); Carbon Dioxide 24 mmol/L (22-30); Chloride 105 mmol/L (98-107); Estimated Creatinine Clearance 86 ml/min; Glucose 85 mg/dl (70-99); Magnesium 1.8 mg/dl (1.6-2.3); Phosphorus 3.1 mg/dl (2.5-4.5); Potassium 3.9 mmol/L (3.5-5.1); Sodium 136 mmol/L (135-145); eGFR > 60.00
[2024-10-07 11:19] VITALS: BP 154/89
--- NOTE | 2024-10-07 13:51 | CM ---
Chart reviewed and will follow with paitnt progress and assist with discharge planning.
Plan; Home with spouse when stable.
--- NOTE | 2024-10-07 13:55 | PN.CDI ---
CDI
- -
CDI:
Physician Documentation Request
Admit Date: 10/05/24 16:37
Dear Doctor Yasmin,
Clinical Indicators:
Patient admitted with recurrent incarcerated parastomal hernia.
10/06 PN, 'Hx Cirrhosis due to Alpha-1 Antitrypsin Deficiency s/p Liver Transplant'
Home medications include: Tacrolimus 1 mg capsule, immediate-release 1 mg PO DAILY
Based on the above, could you clarify in the progress notes, the appropriate diagnosis, if significant, that supports the above abnormalities and additional evaluation, monitoring and/or treatment rendered:
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
No evidence of immunodeficiency
Other
Use of terms such as suspected, likely, concern for, or probable (associated with a specific diagnosis that is being evaluated, monitored, or treated as if it exists) are acceptable and can be coded in the inpatient setting, when documented at the
time of discharge.
Thank you,
Olive Argueta RN BSN
CDI Specialist
available via tiger text
Please use your independent medical judgment in providing your response.
[2024-10-07 15:39] VITALS: BP 119/76
[2024-10-07] MEDS: LOVENOX 40 MG SC (17:39)
[2024-10-07] MEDS: TOPROL XL 25 MG PO (17:39)
[2024-10-07 19:38] VITALS: BP 112/76
[2024-10-07] MEDS: LIDOCAINE 4% PATCH 1 PATCH TOPICAL (22:26)
[2024-10-07 23:28] VITALS: BP 112/74
[2024-10-08] VITALS (16 sets, daily range): BP systolic 0–134; BP diastolic 61–87
--- NOTE | 2024-10-08 05:02 | DOWNTIME ---
There was a SafetyCertified Client Well Flow Operator Downtime on 10/08/2024 from 0100 to 10/08/2023 at 0205 . Downtime documentation of patient's care, including medication administrations, has been reconciled in the electronic record per guidelines. Refer to the
patient's paper chart under the miscellaneous tab to see printed paper medication records and downtime forms.
--- NOTE | 2024-10-08 07:06 | W.PN.HOSP.TC ---
Today's Communication/Plan
-
NPO for parastomal hernia repair as per Surgery
Follow up post-surgical recommendations
Diet as per Surgery
pain control
Assessment / Plan
Assessment / Plan
Physical Exam
General: Comfortable and Conversant
HEENT: Anicteric and Moist mucous membranes
Respiratory: Clear and Non Labored Respirations
Cardiac: S1/S2 and Regular Rhythm
GI: Soft, Non Tender, Ileostomy with parastomal hernia, bowel sounds present
Musculoskeletal: No Clubbing and No Cyanosis
Skin: Warm and Dry
Neuro: Awake, Alert, Oriented and Nonfocal/grossly intact
Psych: Calm
79M afib cirrhosis liver transplant ischemic colitis diverting ileostomy here for incarcerated parastomal hernia reduced at bedside by surgeon. admitted for further evaluation and treatment.
Recurrent Incarcerated Parastomal Hernia
-CRS eval appreciated colonoscopy performed 10/07/24 noted Erythematous mucosa in the rectum and in the sigmoid colon, recommended continued diversion
-Gen surgery eval appreciated NPO for Parastomal Hernia repair 10/08/24
Paroxysmal Atrial Fibrillation
-Hold Pradaxa for OR as per surgery
-Continue metoprolol for rate control
Essential Hypertension
-Continue metoprolol
Hyperlipidemia
-Continue atorvastatin
BPH
-Continue dutasteride-tamsulosin
Hx Cirrhosis due to Alpha-1 Antitrypsin Deficiency s/p Liver Transplant
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
-tacrolimus necessary for immunosuppression liver transplant
-Continue tacrolimus
Hx Ischemic Colitis /p Permanent Diverting Ileostomy
DVT proph: SCDs
Code Status: Full Code
I spent a total of 40 minutes with the patient or on the floor. More than 50% of this time involved counseling and coordination of care.
Anticipated Discharge: 24 - 48 hours
Subjective/Interval History
-
Date of Service: October 08, 2024
No acute distress. NPO for OR today parastomal hernia repair as per surgery.
Objective Data
-
Labs:
Laboratory Results
10/08/24
06:58
WBC Pending
Hgb Pending
Hct Pending
Plt Count Pending
Sodium Pending
Potassium Pending
Chloride Pending
Carbon Dioxide Pending
BUN Pending
Creatinine Pending
Glucose Pending
Calcium Pending
Vital Signs:
Vital Signs
Temp Pulse Resp BP Pulse Ox
97.9 F 72 18 101/68 100
10/08/24 03:07 10/08/24 03:07 10/08/24 03:07 10/08/24 03:07 10/08/24 03:07
I&O
10/07/24 10/08/24 10/09/24
06:59 06:59 06:59
Intake Total 960 / 960 1440 / 1440
Output Total 400 / 400
Balance 560 / 560 1440 / 1440
[2024-10-08 07:28] LABS: Hematocrit 43.6 % (39.0-52.0); Hemoglobin 14.7 g/dL (13.0-18.0); Mean Corp Hgb Conc. 33.7 g/dL (33.0-37.0); Mean Corpuscular Hgb 28.9 pg (27.0-31.0); Mean Corpuscular Volume 85.7 fL (80.0-94.0); Mean Platelet Volume 9.4 fL (7.4-10.4); Platelet Count 179 10^3/uL (130-400); Red Blood Cell Count 5.09 10^6/uL (4.70-6.10); Red Cell Dist. Width 13.4 % (11.5-14.5); White Blood Cell Count 8.2 10^3/uL (4.8-10.8)
[2024-10-08 07:43] LABS: Blood Urea Nitrogen 9 mg/dl (9-20); Calcium 8.9 mg/dl (8.4-10.2); Carbon Dioxide 24 mmol/L (22-30); Chloride 103 mmol/L (98-107); Estimated Creatinine Clearance 76 ml/min; Glucose 99 mg/dl (70-99); Magnesium 1.8 mg/dl (1.6-2.3); Phosphorus 3.2 mg/dl (2.5-4.5); Potassium 3.9 mmol/L (3.5-5.1); Sodium 138 mmol/L (135-145); eGFR > 60.00
[2024-10-08] MEDS: PROSCAR 5 MG PO (07:52)
[2024-10-08] MEDS: LIPITOR 40 MG PO (07:52)
[2024-10-08] MEDS: FLOMAX 0.4 MG PO (07:52)
[2024-10-08] MEDS: ZYRTEC 10 MG PO (07:52)
[2024-10-08] MEDS: PROGRAF 1 MG PO (07:52)
--- NOTE | 2024-10-08 08:38 | W.PN.GS2 ---
Today's Communication / Plan
-
OR
Assessment / Plan
-
Assessment: 79-year-old male well-known to the colorectal and general surgery service for a parastomal hernia who presented to our hospital for an incarcerated parastomal hernia that was reduced in the setting of multiple previous admissions for
similar.
Barium enema rules out colonic obstruction however limited distendability of diverted colon
Follow-up colonoscopy yesterday with Dr. Alexander shows erythematous mucosa in the rectum and sigmoid colon but no obstruction.
Plan: Patient is on the OR schedule today for surgical management of his parastomal hernia due to multiple recurrent obstructive events recently.
Dr. Alexander has advised that patient would benefit from continued diversion.
Further discussions with patient outlining surgical treatment plan which would be repair of parastomal hernia and anticipated takedown/revision of current diverting loop ileostomy with at a minimum reciting the skin but potential fascial reciting as
well. This will be coordinated operative procedure with both myself and Dr. Alexander as co-surgeon.
Anticipated operative procedure was reviewed in detail the patient including the operative technique, potential operative findings and the management, alternative treatment options, benefits and risk such as but not limited to bleeding, infectious
and wound related complications, iatrogenic injury to surrounding viscera, utilization of surgical drains postoperatively. We discussed the typical postoperative recovery pending operative findings as well. Any of the patient's concerns or
questions were fully addressed and informed consent was obtained including blood consent.
Subjective Data
-
Date of Service: October 08, 2024
Patient seen and examined in follow-up this a.m.
Doing well.
Ostomy functioning.
No pain
Objective Data
-
Intake and Output
10/07/24 10/08/24 10/09/24
06:59 06:59 06:59
Intake Total 960 / 960 1440 / 1440
Output Total 400 / 400
Balance 560 / 560 1440 / 1440
Intake:
Oral fluids 960 / 960 1440 / 1440
Output:
Urine, Voided 200 / 200
Urostomy output 200 / 200
Other:
Number of approximated MODERATE 3 3
amounts of urine
Vital Signs
Temp Pulse Resp BP Pulse Ox
97.8 F 73 18 102/76 97
10/08/24 07:08 10/08/24 07:08 10/08/24 07:08 10/08/24 07:08 10/08/24 07:08
Lab Results
10/08/24 06:58
10/08/24 06:58
Calcium 8.9 mg/dl (8.4-10.2) 10/08/24 06:58
Phosphorus 3.2 mg/dl (2.5-4.5) 10/08/24 06:58
Magnesium 1.8 mg/dl (1.6-2.3) 10/08/24 06:58
Total Bilirubin 0.7 mg/dl (0.2-1.3) 10/05/24 11:00
AST 38 U/L (17-59) 10/05/24 11:00
ALT 36 U/L (0-50) 10/05/24 11:00
Alkaline Phosphatase 134 U/L (38-126) H 10/05/24 11:00
Total Protein 6.7 g/dl (6.3-8.2) 10/05/24 11:00
Albumin 3.7 g/dl (3.5-5.0) 10/05/24 11:00
Physical Exam
-
NAD AAOx3
ABD: Right sided ileostomy with liquid stool
--- NOTE | 2024-10-08 08:50 | W.SUR.PREOP ---
Pre-Operative Surgical Note
-
I have examined this patient prior to the performance of the scheduled procedure.
The patient's condition is unchanged from the time of the current History and
Physical and the patient is able to undergo the scheduled procedure.
--- NOTE | 2024-10-08 13:22 | CM ---
Patient is for possible OR today, will need follow up plan is to home with spouse when stable.
Plan: Home with spouse when stable.
--- NOTE | 2024-10-08 15:24 | W.IMMPOSTOP ---
Addendum entered and electronically signed by Vineet Delgado MD 10/08/24 17:57:
[id number]
Original Note:
Surgical Immed Post Op Note
-
Primary Surgeon: Vineet Delgado MD
Assisting Surgeon: Jose Alexander MD
Pre-op Diagnosis: Parastomal Hernia
Post-op Diagnosis: Parastomal Hernia
Procedure Performed: Open Parastomal Hernia Repair with onlay mesh (phasix 10cm x 15cm)
Anesthesia Type: GETA + 0.25% Marcaine
Specimen / Cultures: none
Estimated Blood Loss: 16mL
Complications: none immediate
Operative Findings: Parastomal hernia without significant adhesions within hernia sac. Contents reduced, anterior and posterior sheath isolated and closed separately. onlay mesh reinforcement with Phasix 10cm x 15cm carson holed around ostomy. loop
ileostomy kept in place.
--- NOTE | 2024-10-08 16:45 | PTCARENOTE ---
Patient arrived to unit. VSS. AAOx4. Patient on 2l NC O2 sat. 97% patient has briones catheter in place with blood tinge urine. CANDACE drain in place, incision clean, dry, and intact. will continue to monitor.
[2024-10-08] MEDS: NSS 1000 IV (16:56)
[2024-10-08] MEDS: LOVENOX 40 MG SC (17:01)
[2024-10-08] MEDS: TOPROL XL 25 MG PO (17:01)
[2024-10-08] MEDS: LIDOCAINE 4% PATCH TOPICAL (21:49)
[2024-10-09] MEDS: NSS 1000 IV ×2 (01:48→08:49)
[2024-10-09 03:12] VITALS: BP 106/69
--- NOTE | 2024-10-09 07:27 | W.PN.HOSP.TC ---
Today's Communication/Plan
-
cont post-operative care, diet as per surgery
Assessment / Plan
Assessment / Plan
Physical Exam
General: Comfortable and Conversant
HEENT: Anicteric and Moist mucous membranes
Respiratory: Clear and Non Labored Respirations
Cardiac: S1/S2 and Regular Rhythm
GI: Soft, Non Tender, Ileostomy, bowel sounds present
Musculoskeletal: No Clubbing and No Cyanosis
Skin: Warm and Dry
Neuro: Awake, Alert, Oriented and Nonfocal/grossly intact
Psych: Calm
79M afib cirrhosis liver transplant ischemic colitis diverting ileostomy here for incarcerated parastomal hernia reduced at bedside by surgeon. admitted for further evaluation and treatment.
Recurrent Incarcerated Parastomal Hernia
-CRS eval appreciated colonoscopy performed 10/07/24 noted Erythematous mucosa in the rectum and in the sigmoid colon, recommended continued diversion
-Gen surgery eval appreciated Parastomal Hernia repair 10/08/24
-cont post-operative care, diet as per surgery
Paroxysmal Atrial Fibrillation
-Continue metoprolol for rate control
-cont hold Pradaxa until cleared to resume as per surgery
Essential Hypertension
-Continue metoprolol
Hyperlipidemia
-Continue atorvastatin
BPH
-Continue dutasteride-tamsulosin
Hx Cirrhosis due to Alpha-1 Antitrypsin Deficiency s/p Liver Transplant
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
-tacrolimus necessary for immunosuppression liver transplant
-Continue tacrolimus
Hx Ischemic Colitis /p Permanent Diverting Ileostomy
DVT proph: SCDs
Code Status: Full Code
I spent a total of 35 minutes with the patient or on the floor. More than 50% of this time involved counseling and coordination of care.
Anticipated Discharge: 24 - 48 hours
Subjective/Interval History
-
Date of Service: October 09, 2024
No acute distress. Appears comfortable at this time. Reports Flatus. Reports pain well controlled at this time. Denies new acute issues.
Objective Data
-
Labs:
Laboratory Results
10/09/24
07:25
WBC Pending
Hgb Pending
Hct Pending
Plt Count Pending
Sodium Pending
Potassium Pending
Chloride Pending
Carbon Dioxide Pending
BUN Pending
Creatinine Pending
Glucose Pending
Calcium Pending
Vital Signs:
Vital Signs
Temp Pulse Resp BP Pulse Ox
97.9 F 58 20 106/69 94
10/09/24 03:12 10/09/24 03:12 10/09/24 03:12 10/09/24 03:12 10/09/24 03:12
I&O
10/08/24 10/09/24 10/10/24
06:59 06:59 06:59
Intake Total 1440 / 1440 100 / 100
Output Total 520 / 520
Balance 1440 / 1440 -420 / -420
[2024-10-09 07:40] VITALS: BP 100/65
[2024-10-09 08:09] LABS: Hematocrit 39.2 % (39.0-52.0); Hemoglobin 13.1 g/dL (13.0-18.0); Mean Corp Hgb Conc. 33.4 g/dL (33.0-37.0); Mean Corpuscular Hgb 28.8 pg (27.0-31.0); Mean Corpuscular Volume 86.2 fL (80.0-94.0); Mean Platelet Volume 9.8 fL (7.4-10.4); Platelet Count 166 10^3/uL (130-400); Red Blood Cell Count 4.55 10^6/uL (4.70-6.10); Red Cell Dist. Width 13.5 % (11.5-14.5); White Blood Cell Count 12.1 10^3/uL (4.8-10.8)
[2024-10-09 08:24] LABS: Blood Urea Nitrogen 14 mg/dl (9-20); Calcium 8.1 mg/dl (8.4-10.2); Carbon Dioxide 24 mmol/L (22-30); Chloride 105 mmol/L (98-107); Estimated Creatinine Clearance 86 ml/min; Glucose 103 mg/dl (70-99); Magnesium 1.8 mg/dl (1.6-2.3); Phosphorus 3.3 mg/dl (2.5-4.5); Potassium 4.3 mmol/L (3.5-5.1); Sodium 138 mmol/L (135-145); eGFR > 60.00
[2024-10-09] MEDS: ZYRTEC 10 MG PO (08:49)
[2024-10-09] MEDS: FLOMAX 0.4 MG PO (08:49)
[2024-10-09] MEDS: LIPITOR 40 MG PO (08:49)
[2024-10-09] MEDS: PROSCAR 5 MG PO (08:50)
[2024-10-09] MEDS: PROGRAF 1 MG PO (08:50)
--- NOTE | 2024-10-09 10:09 | W.PN.GS2 ---
Today's Communication / Plan
-
`
Assessment / Plan
-
Assessment: 79-year-old male well-known to the colorectal and general surgery service for a parastomal hernia who presented to our hospital for an incarcerated parastomal hernia that was reduced in the setting of multiple previous admissions for
similar.
POD#1 s/p open parastomal hernia repair with mesh (primary closure of fascia with onlay phasix keyholed) - did not re-site stoma
AFVSS
doing well post op
signs of active GI function via ostomy
Plan:clear liquids and okay to stop IVFs if malinda PO well
home PO meds but hold pradaxa for 72hrs post op
maintain CANDACE
OOBTC/ambulate
briones until POD#2
Subjective Data
-
Date of Service: October 09, 2024
pt seen and examined
post op pain controlled
no nausea
stoma starting to function
Objective Data
-
Intake and Output
10/08/24 10/09/24 10/10/24
06:59 06:59 06:59
Intake Total 1440 / 1440 100 / 100
Output Total 520 / 520
Balance 1440 / 1440 -420 / -420
Intake:
Oral fluids 1440 / 1440
IV fluids (Total) 100 / 100
Normosol 100 / 100
Output:
Liquid stool amount 50 / 50
Ileostomy 50 / 50
Drain Output (Total) 20 / 20
Right Abdomen Alejo-Bruce 20 / 20
Urine, Briones 450 / 450
Other:
Number of approximated MODERATE 3 4
amounts of urine
Vital Signs
Temp Pulse Resp BP Pulse Ox
97.7 F 61 16 100/65 98
10/09/24 07:40 10/09/24 07:40 10/09/24 07:40 10/09/24 07:40 10/09/24 07:40
Lab Results
10/09/24 07:25
10/09/24 07:25
Calcium 8.1 mg/dl (8.4-10.2) L 10/09/24 07:25
Phosphorus 3.3 mg/dl (2.5-4.5) 10/09/24 07:25
Magnesium 1.8 mg/dl (1.6-2.3) 10/09/24 07:25
Total Bilirubin 0.7 mg/dl (0.2-1.3) 10/05/24 11:00
AST 38 U/L (17-59) 10/05/24 11:00
ALT 36 U/L (0-50) 10/05/24 11:00
Alkaline Phosphatase 134 U/L (38-126) H 10/05/24 11:00
Total Protein 6.7 g/dl (6.3-8.2) 10/05/24 11:00
Albumin 3.7 g/dl (3.5-5.0) 10/05/24 11:00
Physical Exam
-
NAD AAOx3
ABD: soft, not distended
mild incisional tenderness
ostomy with some liquid stool/succus and air in appliance
CANDACE with light SSF
Patient has a briones catheter: Yes
[2024-10-09 11:20] VITALS: BP 100/61
--- NOTE | 2024-10-09 11:24 | W.PN.CRS1 ---
Today's Communication / Plan
-
clears
oob
Assessment/Plan
-
POD#1 Open Parastomal Hernia Repair with onlay mesh
-Advanced to clears. Diet advancement per GI.
-OOB as tolerated
-Surgical drain in place
-Hall until pod#2
Subjective Data
Procedure
10/08/2024- Open Parastomal Hernia Repair with onlay mesh (phasix 10cm x 15cm)
Subjective Data
Date of Service: October 09, 2024
Patient states he feels well. Admits bowel movements are working. He has flatus. He has no nausea or vomiting. He is hungry.
Objective Data
-
Vital Signs
Temp Pulse Resp BP Pulse Ox
98.1 F 60 16 100/61 97
10/09/24 11:20 10/09/24 11:20 10/09/24 11:20 10/09/24 11:20 10/09/24 11:20
Intake & Output
10/08/24 10/09/24 10/10/24
06:59 06:59 06:59
Intake Total 1440 / 1440 100 / 100
Output Total 520 / 520
Balance 1440 / 1440 -420 / -420
Intake:
Oral fluids 1440 / 1440
IV fluids (Total) 100 / 100
Normosol 100 / 100
Output:
Liquid stool amount 50 / 50
Ileostomy 50 / 50
Drain Output (Total) 20 /
Right Abdomen Alejo-Bruce 20
Urine, Hall 450 / 450
Other:
Number of approximated MODERATE 3 4
amounts of urine
Lab Results
10/09/24 07:25
10/09/24 07:25
Physical Exam
-
General: No Acute Distress and AOx3
Abdomen: Soft, Non Distended and Non Tender
Skin: Dry
Incision: Clear, Dry, Intact
--- NOTE | 2024-10-09 11:31 | WOUNDNOTE ---
[facility] RN NOTE: This RN notified by RNCari that patient had questions about ostomy barrier. Reviewed chart and met with patient. Patient stated he wanted to try a flat barrier rather than convex. Patient also stated that he is independent with
pouch changes but required assistance today because he has not stood up since surgery. Patient has oval shaped, pink, budded ileostomy with mucus fistula. Peristomal skin intact with newly closed incision that sits under barrier. Pouch changed with
flat barrier # [id number], Eakins seal and high output pouch. Heels intact. Patient will be getting out of bed today with assistance. Air cushion applied to chair. Patient states ability to turn in bed. Ostomy supplies at bedside. Will sign off.
[2024-10-09 15:21] VITALS: BP 110/72
[2024-10-09] MEDS: TOPROL XL PO (17:35)
[2024-10-09] MEDS: LOVENOX 40 MG SC (17:36)
[2024-10-09 19:35] VITALS: BP 133/83
[2024-10-09] MEDS: LIDOCAINE 4% PATCH TOPICAL (21:04)
[2024-10-09] MEDS: DESENEX/MITRAZOL/ZEASORB 1 APPLIC TOPICAL (21:04)
[2024-10-09 23:50] VITALS: BP 127/88
[2024-10-10 03:32] VITALS: BP 101/65
[2024-10-10 07:26] LABS: Mean Corp Hgb Conc. 34.1 g/dL (33.0-37.0); Mean Corpuscular Volume 84.9 fL (80.0-94.0); Mean Platelet Volume 9.5 fL (7.4-10.4); Platelet Count 145 10^3/uL (130-400); Red Blood Cell Count 4.83 10^6/uL (4.70-6.10); Red Cell Dist. Width 13.7 % (11.5-14.5); White Blood Cell Count 9.4 10^3/uL (4.8-10.8)
[2024-10-10 08:08] LABS: Blood Urea Nitrogen 13 mg/dl (9-20); Calcium 8.4 mg/dl (8.4-10.2); Carbon Dioxide 22 mmol/L (22-30); Chloride 105 mmol/L (98-107); Estimated Creatinine Clearance 86 ml/min; Glucose 103 mg/dl (70-99); Magnesium 1.7 mg/dl (1.6-2.3); Phosphorus 2.8 mg/dl (2.5-4.5); Potassium 3.8 mmol/L (3.5-5.1); Sodium 136 mmol/L (135-145); eGFR > 60.00
[2024-10-10 08:21] VITALS: BP 112/68
[2024-10-10] MEDS: ZYRTEC 10 MG PO (09:12)
[2024-10-10] MEDS: PROSCAR 5 MG PO (09:12)
[2024-10-10] MEDS: FLOMAX 0.4 MG PO (09:13)
[2024-10-10] MEDS: LIPITOR 40 MG PO (09:13)
[2024-10-10] MEDS: PROGRAF 1 MG PO (09:13)
[2024-10-10] MEDS: DESENEX/MITRAZOL/ZEASORB 1 APPLIC TOPICAL ×2 (09:14→20:51)
[2024-10-10 09:45] VITALS: BP 117/83; PULSE 85
--- NOTE | 2024-10-10 10:00 | PTOTSP ---
The patient is independent with ambulation and elevations, offering no concerns regarding mobility upon return home. Encouraged the patient to increase ambulation in the hallways (several times/day) to improve lung function and bowel function. No PT
needs identified at this time, will sign off.
--- NOTE | 2024-10-10 10:16 | W.PN.UPDATE ---
Update Note
Progress Note Update
Discussed with surgery, given patient overall very stable, problem primarily surgical, patient transferred into surgery service. Hospitalist service will sign off. Please re-consult as necessary.
--- NOTE | 2024-10-10 11:24 | W.PN.GS2 ---
Addendum entered and electronically signed by Robinson Parikh MD 10/10/24 16:13:
I saw and examined the patient.
The Data Communications Software Consultant's note was reviewed and I agree with the note.
Comment: feels well, pain controlled, malinda cld, denies n/v; >1L stoma output since yesterday, will adv to fld
Original Note:
Today's Communication / Plan
-
FLD
Assessment / Plan
-
Assessment: 79-year-old male well-known to the colorectal and general surgery service for a parastomal hernia who presented to our hospital for an incarcerated parastomal hernia that was reduced in the setting of multiple previous admissions for
similar.
POD#2 s/p open parastomal hernia repair with mesh (primary closure of fascia with onlay phasix keyholed) - did not re-site stoma
AFVSS
doing well post op
bowels recovering with liquid stoma outputs
Plan: Advance to FLD
home PO meds but hold pradaxa for 72hrs post op, will check CBC tomorrow am prior to resuming
maintain CANDACE
OOBTC/ambulate
Medical management as per primary team
Subjective Data
-
Date of Service: October 10, 2024
Patient seen and examined at bedside with Dr. Parikh. Denies n/v. Tolerating clears. Pain well managed/minimal. Notes he emptied a large amount from his ostomy last night. Voided a small amount since briones removed.
Objective Data
-
Intake and Output
10/09/24 10/10/24 10/11/24
06:59 06:59 06:59
Intake Total 100 / 100
Output Total 520 / 520 2019 760 / 760
Balance -420 / -420 -2019 / -2020 -760 / -760
Intake:
IV fluids (Total) 100 / 100
Normosol 100 / 100
Output:
Liquid stool amount 50 / 50 1250 / 1250 600 / 600
Ileostomy 50 / 50 1250 / 1250 600 / 600
Drain Output (Total) 70 / 70 60 / 60
Right Abdomen Alejo-Bruce 70 / 70 60 / 60
Urine, Briones 450 / 450 700 / 700
Urine, Voided 100 / 100
Other:
Number of approximated MODERATE 4
amounts of urine
Vital Signs
Temp Pulse Resp BP Pulse Ox
98.0 F 83 15 112/68 88
10/10/24 08:21 10/10/24 08:21 10/10/24 08:21 10/10/24 08:21 10/10/24 08:21
Lab Results
10/10/24 07:09
10/10/24 07:09
Calcium 8.4 mg/dl (8.4-10.2) 10/10/24 07:09
Phosphorus 2.8 mg/dl (2.5-4.5) 10/10/24 07:09
Magnesium 1.7 mg/dl (1.6-2.3) 10/10/24 07:09
Total Bilirubin 0.7 mg/dl (0.2-1.3) 10/05/24 11:00
AST 38 U/L (17-59) 10/05/24 11:00
ALT 36 U/L (0-50) 10/05/24 11:00
Alkaline Phosphatase 134 U/L (38-126) H 10/05/24 11:00
Total Protein 6.7 g/dl (6.3-8.2) 10/05/24 11:00
Albumin 3.7 g/dl (3.5-5.0) 10/05/24 11:00
Physical Exam
-
NAD AAOx3
ABD: soft, not distended
mild incisional tenderness
ostomy with some liquid stool/succus and air in appliance
CANDACE with light SSF
Patient has a briones catheter: No
[2024-10-10 11:52] VITALS: BP 121/85
[2024-10-10 15:07] VITALS: BP 110/77
[2024-10-10] MEDS: TOPROL XL 25 MG PO (17:41)
[2024-10-10] MEDS: LOVENOX 40 MG SC (17:41)
[2024-10-10] MEDS: LIDOCAINE 4% PATCH TOPICAL (20:51)
[2024-10-10 23:50] VITALS: BP 127/86
[2024-10-11 07:10] VITALS: BP 116/76
[2024-10-11 07:15] LABS: Hemoglobin 13.5 g/dL (13.0-18.0); Mean Corp Hgb Conc. 33.8 g/dL (33.0-37.0); Mean Corpuscular Hgb 28.8 pg (27.0-31.0); Mean Corpuscular Volume 85.3 fL (80.0-94.0); Mean Platelet Volume 9.7 fL (7.4-10.4); Platelet Count 159 10^3/uL (130-400); Red Blood Cell Count 4.69 10^6/uL (4.70-6.10); Red Cell Dist. Width 13.8 % (11.5-14.5); White Blood Cell Count 9.8 10^3/uL (4.8-10.8)
[2024-10-11 07:50] LABS: Blood Urea Nitrogen 12 mg/dl (9-20); Calcium 8.7 mg/dl (8.4-10.2); Carbon Dioxide 21 mmol/L (22-30); Chloride 103 mmol/L (98-107); Estimated Creatinine Clearance 76 ml/min; Glucose 103 mg/dl (70-99); Magnesium 1.7 mg/dl (1.6-2.3); Phosphorus 3.8 mg/dl (2.5-4.5); Potassium 3.6 mmol/L (3.5-5.1); Sodium 135 mmol/L (135-145); eGFR > 60.00
[2024-10-11] MEDS: LIPITOR 40 MG PO (08:39)
[2024-10-11] MEDS: FLOMAX 0.4 MG PO (08:39)
[2024-10-11] MEDS: PROSCAR 5 MG PO (08:39)
[2024-10-11] MEDS: PROGRAF 1 MG PO (08:39)
[2024-10-11] MEDS: ZYRTEC 10 MG PO (08:40)
[2024-10-11] MEDS: DESENEX/MITRAZOL/ZEASORB 1 APPLIC TOPICAL ×2 (08:41→20:41)
--- NOTE | 2024-10-11 14:15 | W.PN.GS2 ---
Addendum entered and electronically signed by Robinson Parikh MD 10/11/24 15:23:
I saw and examined the patient.
The Ash Worker's note was reviewed and I agree with the note.
Comment: doing well , stool and flatus per stoma, denies n/v, malinda fld, exam approp, ttp mild and improved from yesterday, adv to lrd, convert to po pain meds, restart pradaxa
Original Note:
Today's Communication / Plan
-
LRD
Assessment / Plan
-
Assessment: 79-year-old male well-known to the colorectal and general surgery service for a parastomal hernia who presented to our hospital for an incarcerated parastomal hernia that was reduced in the setting of multiple previous admissions for
similar.
POD#3 s/p open parastomal hernia repair with mesh (primary closure of fascia with onlay phasix keyholed) - did not re-site stoma
AFVSS
doing well post op
bowels recovering with liquid stoma outputs
Labs stable
Plan: Advance to LRD
Ok to resume home dosage of Pradaxa
maintain CANDACE
OOBTC/ambulate
Switch to PO analgesics
Ok to shower
C/W CANDACE, anticipate removal prior to discharge
Continue home meds with imodium on hold
Tentative d/c tomorrow if tolerating diet
Subjective Data
-
Date of Service: October 11, 2024
Patient seen and examined at bedside with Dr. Parikh. Some abdominal soreness but overall recovering well. Denies n/v. Tolerating diet. Voiding without difficulty. Emptied his stoma appliance this morning as it was full.
Objective Data
-
Intake and Output
10/10/24 10/11/24 10/12/24
06:59 06:59 06:59
Intake Total 240 / 240
Output Total 2019 1810 / 1810
Balance -2019 -1570 / -1570
Intake:
Oral fluids 240 / 240
Output:
Liquid stool amount 1250 / 1250 1250 / 1250
Ileostomy 1250 / 1250 1250 / 1250
Drain Output (Total) 70 110 / 110
Right Abdomen Alejo-Bruce 70 110 / 110
Urine, Briones 700 / 700
Urine, Voided 450 / 450
Other:
Number of approximated MODERATE 3
amounts of urine
Vital Signs
Temp Pulse Resp BP Pulse Ox
98.0 F 88 18 116/76 93
10/11/24 07:10 10/11/24 07:10 10/11/24 07:10 10/11/24 07:10 10/11/24 07:10
Lab Results
10/11/24 06:45
10/11/24 06:45
Calcium 8.7 mg/dl (8.4-10.2) 10/11/24 06:45
Phosphorus 3.8 mg/dl (2.5-4.5) 10/11/24 06:45
Magnesium 1.7 mg/dl (1.6-2.3) 10/11/24 06:45
Total Bilirubin 0.7 mg/dl (0.2-1.3) 10/05/24 11:00
AST 38 U/L (17-59) 10/05/24 11:00
ALT 36 U/L (0-50) 10/05/24 11:00
Alkaline Phosphatase 134 U/L (38-126) H 10/05/24 11:00
Total Protein 6.7 g/dl (6.3-8.2) 10/05/24 11:00
Albumin 3.7 g/dl (3.5-5.0) 10/05/24 11:00
Physical Exam
-
NAD AAOx3
ABD: soft, not distended
mild incisional tenderness
ostomy with soft stool/liquid and air in appliance
CANDACE with light serous fluid
Patient has a briones catheter: No
Patient has a central line: No
[2024-10-11 15:20] VITALS: BP 110/82
[2024-10-11] MEDS: TOPROL XL 25 MG PO (18:18)
[2024-10-11] MEDS: PRADAXA 150 MG PO (20:40)
[2024-10-11] MEDS: LIDOCAINE 4% PATCH TOPICAL (20:48)
[2024-10-11 23:00] VITALS: BP 117/69
[2024-10-12 07:42] VITALS: BP 118/81
[2024-10-12] MEDS: PROGRAF 1 MG PO (07:50)
[2024-10-12] MEDS: LIPITOR 40 MG PO (07:50)
[2024-10-12] MEDS: PROSCAR 5 MG PO (07:50)
[2024-10-12] MEDS: FLOMAX 0.4 MG PO (07:50)
[2024-10-12] MEDS: PRADAXA 150 MG PO (07:50)
[2024-10-12] MEDS: DESENEX/MITRAZOL/ZEASORB 1 APPLIC TOPICAL ×2 (07:51→19:37)
[2024-10-12] MEDS: ZYRTEC 10 MG PO (07:51)
[2024-10-12 08:22] LABS: Hematocrit 39.6 % (39.0-52.0); Hemoglobin 13.9 g/dL (13.0-18.0); Mean Corp Hgb Conc. 35.1 g/dL (33.0-37.0); Mean Corpuscular Hgb 29.4 pg (27.0-31.0); Mean Corpuscular Volume 83.9 fL (80.0-94.0); Mean Platelet Volume 9.9 fL (7.4-10.4); Platelet Count 175 10^3/uL (130-400); Red Blood Cell Count 4.72 10^6/uL (4.70-6.10); Red Cell Dist. Width 13.7 % (11.5-14.5); White Blood Cell Count 9.6 10^3/uL (4.8-10.8)
[2024-10-12 08:50] LABS: Blood Urea Nitrogen 15 mg/dl (9-20); Calcium 8.6 mg/dl (8.4-10.2); Carbon Dioxide 19 mmol/L (22-30); Chloride 106 mmol/L (98-107); Estimated Creatinine Clearance 76 ml/min; Glucose 101 mg/dl (70-99); Magnesium 1.7 mg/dl (1.6-2.3); Phosphorus 3.8 mg/dl (2.5-4.5); Potassium 3.9 mmol/L (3.5-5.1); Sodium 136 mmol/L (135-145); eGFR > 60.00
--- NOTE | 2024-10-12 13:33 | W.PN.GS2 ---
Addendum entered and electronically signed by Robinson Parikh MD 10/12/24 14:06:
I saw and examined the patient.
The Power Builder Developer's note was reviewed and I agree with the note.
Comment: Small amount brbpr when pushing for void, stoma putting out gas and liquid stool, malinda fld./ adv to lrd. hold pradaxa today in light of minor rectal bleeding.
Original Note:
Today's Communication / Plan
-
Hold Pradaxa, continue LRD
Assessment / Plan
-
Assessment: 79-year-old male well-known to the colorectal and general surgery service for a parastomal hernia who presented to our hospital for an incarcerated parastomal hernia that was reduced in the setting of multiple previous admissions for
similar.
PPD#5 Colonoscopy with erythematous rectum/sigmoid colon
POD#4 s/p open parastomal hernia repair with mesh (primary closure of fascia with onlay phasix keyholed) - did not re-site stoma
AFVSS
doing well post op did have some BRBPR; likely d/t recent instrumentation
bowels recovering with liquid stoma outputs
Labs stable
Plan: Advance to LRD
Hold pradaxa in light of recent rectal bleeding, will follow for resolution
maintain CANDACE, anticipate removal prior to d/c
OOBTC/ambulate
Continue on PO analgesics
Ok to shower
Continue home meds with imodium on hold
Tentative d/c tomorrow pending patient course
Subjective Data
-
Date of Service: October 12, 2024
Patient seen and examined at bedside with Dr. Parikh. Abdominal cramping and GI upset after eating chicken fingers last night, but better today. Denies n/v. Passed some drops of blood while bearing down to urinate both last night and this morning.
After initial drops of blood last night, had a little heavier amount of red blood with some fecal material per rectum as well.
Objective Data
-
Intake and Output
10/11/24 10/12/24 10/13/24
06:59 06:59 06:59
Intake Total 240 / 240 840 / 840
Output Total 1810 / 1810 1555 / 1555
Balance -1570 / -1570 -715 / -715
Intake:
Oral fluids 240 / 240 840 / 840
Output:
Liquid stool amount 1250 / 1250 925 / 925
Ileostomy 1250 / 1250 925 / 925
Drain Output (Total) 110 / 110 30 / 30
Right Abdomen Alejo-Bruce 110 / 110 30 / 30
Urine, Briones 600 / 600
Urine, Voided 450 / 450
Other:
Number of approximated MODERATE 3 2
amounts of urine
Vital Signs
Temp Pulse Resp BP Pulse Ox
98.2 F 90 18 118/81 96
10/12/24 07:42 10/12/24 07:42 10/12/24 07:42 10/12/24 07:42 10/12/24 10:05
Lab Results
10/12/24 07:51
10/12/24 07:51
Calcium 8.6 mg/dl (8.4-10.2) 10/12/24 07:51
Phosphorus 3.8 mg/dl (2.5-4.5) 10/12/24 07:51
Magnesium 1.7 mg/dl (1.6-2.3) 10/12/24 07:51
Total Bilirubin 0.7 mg/dl (0.2-1.3) 10/05/24 11:00
AST 38 U/L (17-59) 10/05/24 11:00
ALT 36 U/L (0-50) 10/05/24 11:00
Alkaline Phosphatase 134 U/L (38-126) H 10/05/24 11:00
Total Protein 6.7 g/dl (6.3-8.2) 10/05/24 11:00
Albumin 3.7 g/dl (3.5-5.0) 10/05/24 11:00
Physical Exam
-
NAD AAOx3
ABD: soft, not distended
mild incisional tenderness
ostomy with soft stool/liquid and air in appliance
CANDACE with light serous fluid
Patient has a briones catheter: No
Patient has a central line: No
[2024-10-12 15:05] VITALS: BP 119/80
[2024-10-12] MEDS: TOPROL XL PO (17:37)
[2024-10-12] MEDS: LIDOCAINE 4% PATCH TOPICAL (19:37)
[2024-10-12 23:31] VITALS: BP 126/88
[2024-10-13] MEDS: FLOMAX 0.4 MG PO (08:21)
[2024-10-13] MEDS: PROSCAR 5 MG PO (08:21)
[2024-10-13] MEDS: ZYRTEC 10 MG PO (08:21)
[2024-10-13] MEDS: PROGRAF 1 MG PO (08:21)
[2024-10-13] MEDS: LIPITOR 40 MG PO (08:21)
[2024-10-13 08:25] VITALS: BP 121/83
[2024-10-13] MEDS: DESENEX/MITRAZOL/ZEASORB 1 APPLIC TOPICAL (08:26)
[2024-10-13 08:27] LABS: Hematocrit 43.5 % (39.0-52.0); Hemoglobin 14.7 g/dL (13.0-18.0); Mean Corp Hgb Conc. 33.8 g/dL (33.0-37.0); Mean Corpuscular Hgb 28.8 pg (27.0-31.0); Mean Corpuscular Volume 85.3 fL (80.0-94.0); Mean Platelet Volume 9.6 fL (7.4-10.4); Platelet Count 183 10^3/uL (130-400); Red Cell Dist. Width 13.8 % (11.5-14.5); White Blood Cell Count 10.3 10^3/uL (4.8-10.8)
[2024-10-13 09:07] LABS: Blood Urea Nitrogen 13 mg/dl (9-20); Calcium 8.9 mg/dl (8.4-10.2); Carbon Dioxide 21 mmol/L (22-30); Chloride 106 mmol/L (98-107); Estimated Creatinine Clearance 76 ml/min; Glucose 101 mg/dl (70-99); Magnesium 1.6 mg/dl (1.6-2.3); Phosphorus 3.5 mg/dl (2.5-4.5); Potassium 4.3 mmol/L (3.5-5.1); Sodium 135 mmol/L (135-145); eGFR > 60.00
[2024-10-13] MEDS: PRADAXA 150 MG PO (09:26)
--- NOTE | 2024-10-13 10:14 | CM ---
assistant sales manager reviewed patient's chart and met with patient and patient is ambulating in room independently no device, plan is to home with spouse, no needs.
Plan; Home with spouse no needs.
--- NOTE | 2024-10-13 10:20 | W.PN.GS2 ---
Today's Communication / Plan
-
Dispo plan
Assessment / Plan
-
Assessment: 79-year-old male well-known to the colorectal and general surgery service for a parastomal hernia who presented to our hospital for an incarcerated parastomal hernia that was reduced in the setting of multiple previous admissions for
similar.
PPD#6 Colonoscopy with erythematous rectum/sigmoid colon
POD#5 s/p open parastomal hernia repair with mesh (primary closure of fascia with onlay phasix keyholed) - did not re-site stoma
AFVSS
doing well post op did have some BRBPR; likely d/t recent instrumentation, now resolved
bowels recovering with liquid stoma outputs
Labs stable
Plan: Hemoglobin stable, okay to resume Pradaxa.
Will discuss with colorectal surgery regarding their final recommendations but patient has all stoma supplies and has no questions about my management.
Plan for DC home today.
Patient agreeable to plan of care above, will follow-up with Dr. Delgado and Dr. Alexander in 2 to 3 weeks.
Time Spent
Total Time Spent with Patient (in minutes): 20
Subjective Data
-
Date of Service: October 13, 2024
Interval Events:
No acute events overnight. Slept well. Pain Controlled. Denies Nausea/Vomiting, +bowel function. Tolerating diet.
Objective Data
-
Intake and Output
10/12/24 10/13/24 10/14/24
06:59 06:59 06:59
Intake Total 840 / 840 240 / 240
Output Total 1555 / 1555 430 / 430
Balance -715 / -715 -190 / -190
Intake:
Oral fluids 840 / 840 240 / 240
Output:
Liquid stool amount 925 / 925
Ileostomy 925 / 925
Drain Output (Total) 30 / 30 30 / 30
Right Abdomen Alejo-Bruce
Urine, Briones 600 / 600
Urine, Voided 400 / 400
Other:
Number of approximated MODERATE 2 3
amounts of urine
Vital Signs
Temp Pulse Resp BP Pulse Ox
98.1 F 70 16 121/83 96
10/13/24 08:25 10/13/24 08:25 10/13/24 08:25 10/13/24 08:25 10/13/24 08:25
Lab Results
10/13/24 07:51
10/13/24 07:51
Calcium 8.9 mg/dl (8.4-10.2) 10/13/24 07:51
Phosphorus 3.5 mg/dl (2.5-4.5) 10/13/24 07:51
Magnesium 1.6 mg/dl (1.6-2.3) 10/13/24 07:51
Total Bilirubin 0.7 mg/dl (0.2-1.3) 10/05/24 11:00
AST 38 U/L (17-59) 10/05/24 11:00
ALT 36 U/L (0-50) 10/05/24 11:00
Alkaline Phosphatase 134 U/L (38-126) H 10/05/24 11:00
Total Protein 6.7 g/dl (6.3-8.2) 10/05/24 11:00
Albumin 3.7 g/dl (3.5-5.0) 10/05/24 11:00
Physical Exam
-
GENERAL/NEURO: Awake, Alert, no distress
CHEST: Unlabored breathing on RA
ABDOMEN: Soft, Non-Tender, Non-Distended, incisions clean dry and intact. Stoma with solid brown output
Patient has a briones catheter: No
Patient has a central line: No
--- NOTE | 2024-10-13 14:03 | W.DS.TRANS ---
Addendum entered and electronically signed by MARK Mi 10/13/24 15:24:
dictated #[id number]
Original Note:
DC Summary - Sidewalk Inspector
-
Discharge Instructions:
Discharge Diagnosis/Procedures Incarcerated parastomal hernia s/p mesh repair
Diet Low Residue
Activity No strenuous activity
Additional Activity Do not lift anything over 15lbs
Driving Restrictions Wait until comfortable twisting, off narcotics
Bathing Restrictions OK to Shower
Wound Care Cover the site where your CANDACE drain was located
with clean gauze until drainage no longer
present.
Change your ostomy appliance as usual
Instructions:
Stand-Alone Forms:
Changes to Home Medications: No
Discharge Medications:
DC Medications w/original date entered in [facility]
cetirizine 10 mg capsule 10 mg PO DAILY Allergies 09/13/23
cholecalciferol (vitamin D3) 25 mcg (1,000 unit) capsule 25 mcg PO DAILY Supplement 09/13/23
dutasteride 0.5 mg-tamsulosin ER 0.4 mg capsule ext.release 24hr mphas 1 cap PO DAILY Urinary Issue 09/13/23
tacrolimus 1 mg capsule, immediate-release 1 mg PO DAILY Liver Issues 09/13/23
therapeutic multivitamin 1 tab PO DAILY Supplement 09/13/23
atorvastatin 40 mg tablet 40 mg PO DAILY High Cholesterol 05/12/24
loperamide 2 mg capsule 2 mg PO DAILY Loose Stools 09/14/24
dabigatran etexilate 150 mg capsule (Pradaxa) 150 mg PO BID Blood Clot Prevention/Tx 09/15/24
metoprolol succinate 25 mg tablet,extended release 24 hr 25 mg PO QPM Heart Disease/Condition 09/15/24
Home Medication Changes
Pending Results: No
[2024-10-13 15:35] VITALS: BP 112/80
--- NOTE | 2024-10-13 15:45 | PTCARENOTE ---
Patient ready for discharge. Went over discharge instructions with patient and patient's . Removed IV. Obtained vitals. Patient taken to discharge lobby by volunteer transport.
== END 2024-10-13 15:52 | disposition home or self-care (01) | DRG 354 ==
LOC: 4 WEST ACU 16:37
PROVIDERS: Internal Medicine; Physician Assistant Medical; Surgery; ADMITTING PHYSICIAN Internal Medicine; ATTENDING PHYSICIAN Surgery; CONSULT PHYSICIAN Surgery; EMERGENCY PHYSICIAN Student in an Organized Health Care Education/Training Program; FAMILY PHYSICIAN Internal Medicine
PROC: 0WUF0JZ Supplement Abdominal Wall with Synthetic Substitute, Open Approach (ICD-10-PCS; 2024-10-05)
PROC: 0DJD8ZZ Inspection of Lower Intestinal Tract, Via Natural or Artificial Opening Endoscopic (ICD-10-PCS; 2024-10-07)
DX: K43.3 Parastomal hernia with obstruction, without gangrene (principal); D84.821 Immunodeficiency due to drugs; Z94.4 Liver transplant status; K62.5 Hemorrhage of anus and rectum; I48.0 Paroxysmal atrial fibrillation; I10 Essential (primary) hypertension; E88.01 Alpha-1-antitrypsin deficiency; E66.9 Obesity, unspecified; E78.00 Pure hypercholesterolemia, unspecified; N40.0 Benign prostatic hyperplasia without lower urinary tract symptoms; Z79.01 Long term (current) use of anticoagulants; Z68.35 Body mass index [BMI] 35.0-35.9, adult; Z93.2 Ileostomy status
CPT/HCPCS: 74176; 74177; 74270; 80048; 80053; 83605; 83690; 83735; 84100; 84484; 85025; 85027; 85610; 85730; 86850; 86900; 86901; 93005; 96361; 96374; 96375; 96376; 97162; 99285; C1776; C1781; J1335; Q9967